=== PATIENT | male | born 1955 | race Caucasian/White ===

== ENCOUNTER 2017-02-06 17:46 | Emergency (ER) | payer OTHER ==
[~2017-02-06] VITALS: Ht 177.8 cm; Wt 79.0 kg
[~2017-02-06 17:46] MED LIST: ASPEC81 PO; CHOL100010 PO; CMBIN INH; DILT-119 PO; LORA-741 PO; NAPR-1169 PO; SIMV40TA2 PO; TIZA4CAP PO; TRAM-10 PO
[2017-02-06 17:47] VITALS: TEMP 36.6; Ht 177.8 cm; Wt 79.0 kg
[2017-02-06] MEDS ORDERED: CHOL1000 PO (17:57)
[2017-02-06] MEDS ORDERED: IPRA1AER2 INH (17:57)
[2017-02-06] MEDS ORDERED: ACETAMINOPHEN 325 MG TAB PO STA (18:04)
--- NOTE | 2017-02-06 19:00 | DIAGNOSTIC IMAGING REPORT ---
R TIBIA/FIBULA 2 VIEWS ROUTINE HISTORY: 62 years-old Male Fall; R lower leg contusion/hematoma acute right lower extremity vein and swelling status post trauma COMPARISON: None available TECHNIQUE: 2 views of the right tibia and fibula FINDINGS: There is moderate soft tissue swelling of the lower extremity, notably involving the mid pretibial tissues without focal opaque foreign body, acute fracture or dislocation. Mild degenerative changes are noted about the medial and lateral compartments of the knee. There is minimal spurring of the inferior fibula. Circumscribed sclerotic lesion with a chondroid matrix involves the medullary space of the distal tibial metadiaphysis, 2.7 x 1.4 x 1.8 cm with nonaggressive features. IMPRESSION: 1. Moderate soft tissue swelling of the lower extremity, notably involving the mid pretibial tissues without acute fracture, dislocation or opaque foreign body. 2. Chondroid matrix lesion of the distal tibial metadiaphysis medullary space measuring up to 2.7 cm suggests endochondroma. The above report was generated using voice recognition software. It may contain grammatical, syntax or spelling errors. Electronically signed by: Fred Rey M.D. 02/06/2017 6:59 PM Dictated Date/Time: 02/06/2017 6:56 PM
[2017-02-06 19:22] VITALS: BP 137/86; PULSE 84; O2SAT 99
--- NOTE | 2017-02-07 01:07 | EMERGENCY ROOM VISIT NOTE ---
ED Visit Note First contact with patient: 17:48 Chief Complaint: I hurt my right lower leg. History of Present Illness: Mr. Medeiros is a 62-year-old white male who is brought into the ED feel is sure come by her complaining of right lower leg pain. Patient reports less than an hour ago he was walking down a small embankment and slipped on wet leaves. He reports before the fall he had no lightheadedness or dizziness, at the time of the fall he did not strike his head or have a loss of consciousness and since the fall he has had no signs of head injury. He is not exactly sure the mechanism of injury but immediately after the fall he noted swelling and pain over the anterior proximal tibia. Since that time his pain has been constant. He rates his discomfort 2/10 and describes it as an achy sensation. His pain is nonradiating. He has not identified any aggravating or alleviating factors related to the pain. He reports she has not taken any medication for pain prior to arrival at the hospital. He denies any associated symptoms including knee pain, lower leg pain, ankle pain, foot pain, leg weakness/numbness/tingling. Additionally he reports that because of the swelling he was afraid to walk so he has not ambulated since the fall. Patient denies any previous significant injuries or surgeries to the right lower leg. Review of Systems: As noted above in history of present illness. Past Medical History: Hypertension, asthma, emphysema, anxiety, status post cholecystectomy, unspecified left knee surgery and unspecified back surgery. Current Medications: Aspirin, Ativan, Zanaflex, Ultram, Zocor, Naprosyn, vitamins, Combivent. Allergies to Medications: Patient denies. Social History: Patient is not employed; he lives with his and feels safe in his home environment; he admits to tobacco use and denies alcohol use. Physical Examination: Vital Signs: Date Time Temp Pulse Resp B/P (MAP) Pulse Ox O2 Delivery O2 Flow Rate FiO2 02/06/17 19:22 84 18 137/86 99 Room Air 02/06/17 17:47 36.6 84 16 137/79 100 Room Air GENERAL: 62-year-old male in mild distress due to pain, nontoxic-appearing, afebrile and hemodynamically stable. NEUROLOGICAL: Awake, alert and oriented to person, place and time. Answering questions appropriately and following commands. SKIN: Warm, dry and pink. Superficial abrasions were noted over the right hip and right lower leg over his contusion/hematoma. No active bleeding. RIGHT LOWER EXTREMITY: No gross bony deformity. No shortening or malrotation. No tenderness in the hip, thigh, knee, ankle or foot. Tenderness and swelling over the proximal anterior medial tibia where there is a large contusion/ hematoma. The knee was examined and there was no joint line tenderness or bony tenderness. He was no laxity of the collateral cruciate ligaments. Sylvester's test was deferred. No tenderness, swelling or bony deformity/crepitus around the ankle. Patient had a slight decrease range of motion in knee flexion due to pain and swelling but had full extension. Throughout the lower leg and foot the skin was warm and pink and capillary refill is brisk. He was able to distinguish light sensations through all dermatomes. ED Course: Patient is assessed as noted above. Patient's medication list was reviewed. Patient was given 650 mg of acetaminophen and ice for pain and comfort. Right Tibia/Fibula X-Rays: Were read by myself and the radiologist showing moderate soft tissue swelling involving the mid pretibial tissues with no acute fracture, dislocation or foreign bodies. Additionally radiologist did note a chondroid a trick lesion in the distal right tibial metaphysis medullary space measuring 2.7 cm suggestive of a endochondroma. An Julio bandage was placed around the hematoma/contusion for compression. I did file ambulation with the patient and he had no difficulty rising from the sitting position, standing, walking, turning around and returning; I did offer him crutches or walker and he refused. Patient was educated about today's findings and instructed on his treatment plan ; he verbalizes understanding and agreement with this plan. Clinical Impression: Right lower leg contusion/hematoma. Endochondroma right lower leg. Status post fall. Disposition: Patient discharged home in stable condition accompanied by his ; prior to departure he was reassessed and subjectively reported he was feeling better and rated his discomfort 1/10. Plan: Comfort measures were discussed with the patient including alternating ibuprofen and acetaminophen as needed for pain, ice for pain and swelling, Julio bandage for compression and elevation. Patient was encouraged to follow-up with his primary care provider for recheck and possible referral for his endochondroma. Patient was encouraged return ED for worsening/uncontrolled pain, uncontrolled swelling, leg weakness/numbness/tingling or any new/concerning symptoms.
== END 2017-02-06 19:24 | disposition home or self-care (01) ==
LOC: C.EDB 17:46 → C.EDD 19:24
DX: S80.11XA Contusion of right lower leg, initial encounter (principal); W01.0XXA Fall on same level from slipping, tripping and stumbling without subsequent striking against object, initial encounter; D16.21 Benign neoplasm of long bones of right lower limb; I10 Essential (primary) hypertension; J45.909 Unspecified asthma, uncomplicated; J43.9 Emphysema, unspecified; F17.200 Nicotine dependence, unspecified, uncomplicated; Z90.49 Acquired absence of other specified parts of digestive tract; Z98.890 Other specified postprocedural states; Z79.82 Long term (current) use of aspirin; Z79.899 Other long term (current) drug therapy

== ENCOUNTER → 2017-02-17 | Outpatient (CLI) | payer OTHER ==
[~2017-02-17] MED LIST changes: +CHOL1000 PO; -CHOL100010 PO; -CMBIN INH; +IPRA1AER2 INH
--- NOTE | 2017-02-17 17:19 | DIAGNOSTIC IMAGING REPORT ---
R ANKLE MIN 3 VIEWS ROUTINE CLINICAL HISTORY: Right leg pain. COMPARISON: Right tibia and fibula radiographs February 06, 2017. FINDINGS: A 2.7 x 1.7 cm chondroid matrix lesion within the distal tibial metadiaphysis suggests an enchondroma. There is mild soft tissue swelling. A well-corticated ossicle along the fibular tip suggests old injury. There is no acute fracture. Talar dome is intact. IMPRESSION: 1. No acute fracture or dislocation of the right ankle. 2. Well-corticated ossicle along the fibular tip which suggests old injury. 3. 2.7 x 1.7 cm chondroid matrix lesion of the distal right tibia which suggests an enchondroma. Electronically signed by: Dirk Weinberg M.D. 02/17/2017 5:18 PM Dictated Date/Time: 02/17/2017 5:16 PM
--- NOTE | 2017-02-17 17:29 | DIAGNOSTIC IMAGING REPORT ---
R TIBIA/FIBULA 2 VIEWS ROUTINE CLINICAL HISTORY: Right leg pain. Right leg hematoma. COMPARISON: Right tibia and fibula radiographs February 06, 2017. FINDINGS: No acute fracture of the right tibia or fibula is identified. A 2.7 x 1.7 cm chondroid lesion within the distal right tibia is noted. Talar dome is intact. A lucency with well-corticated ossicle along the fibular tip suggests old injury. IMPRESSION: 1. No acute fracture of the right tibia or fibula. 2. 2.7 x 1.7 cm chondroid matrix lesion within the distal right tibia which is suggestive of an enchondroma. Electronically signed by: Dirk Weinberg M.D. 02/17/2017 5:27 PM Dictated Date/Time: 02/17/2017 5:26 PM
--- NOTE | 2017-02-17 17:37 | DIAGNOSTIC IMAGING REPORT ---
RIGHT LOWER EXTREMITY VENOUS DOPPLER CLINICAL HISTORY: Right leg pain. Previous hematoma. COMPARISON STUDY: Bilateral lower extremity venous Doppler January 03, 2015. TECHNIQUE: Sonography of the deep venous system of the right lower extremity was performed. Compression and augmentation were evaluated. FINDINGS: The right common femoral, superficial femoral and popliteal veins were compressible. Augmentation was normal. Flow was shown within the deep calf vessels. Note is made of a subcutaneous 8.2 x 5.2 x 1.6 cm complex hypoechoic fluid collection of the superior medial right calf. There is also a smaller intramuscular collection of the superior medial right calf that measures 3.5 x 1.5 x 2.4 cm. IMPRESSION: 1. No evidence of deep venous thrombus within the right lower extremity. 2. 8.2 x 5.2 x 1.6 cm suspected subcutaneous hematoma of the superior medial right calf. 3. 3.5 x 1.5 x 2.4 cm suspected intramuscular hematoma of the superior medial right calf. Electronically signed by: Dirk Weinberg M.D. 02/17/2017 5:36 PM Dictated Date/Time: 02/17/2017 5:34 PM
== END | disposition home or self-care (01) ==
LOC: C.ULTR 16:22
PROVIDERS: ATTEND Nurse Practitioner Family
DX: Z87.828 Personal history of other (healed) physical injury and trauma (principal); M79.604 Pain in right leg; T14.8XXA Other injury of unspecified body region, initial encounter; X58.XXXA Exposure to other specified factors, initial encounter; M89.8X6 Other specified disorders of bone, lower leg

== ENCOUNTER 2017-04-12 15:18 | Emergency (ER) | payer OTHER ==
[~2017-04-12] VITALS: Ht 175.3 cm; Wt 79.3 kg
[2017-04-12 15:39] VITALS: TEMP 36.7; Ht 175.3 cm; Wt 79.3 kg
[2017-04-12] MEDS ORDERED: METHYLPREDNISOLONE 125 MG VIAL IV STA (16:06)
[2017-04-12] MEDS ORDERED: DiphenhydrAMINE HCL 50 MG/ML VIAL IV STA (16:06)
[2017-04-12] MEDS ORDERED: RANITIDINE HCL 150 MG TAB PO ONE (16:15)
--- NOTE | 2017-04-12 16:28 | EMERGENCY ROOM VISIT NOTE ---
History First contact with patient: 15:54 Chief Complaint: INFECTION Stated Complaint: SEPSIS Nursing Triage Summary: Pt presents with c/o rash all over, b/l foot pain. Pt states injured left ankle recently. Rash started at injury site. Pt reports being concerned for sepsis. Pt states, "I have a friend who is an EMT. I called and told them about the rash. They asked if it is a red rash and when I said yes, they said to come here because I may have sepsis." History of Present Illness The patient is a 62 year old male who presents to the Emergency Room with complaints of a rash to both of his legs that started yesterday. It is mildly itchy. It is now spreading to his back. He denies any fever or chills. he denies any recent injury to his legs. He has not tried any [id number] medications. He denies any new soaps, lotions or detergents. No recent travel. Review of Systems 10 system review performed and negative unless noted in HPI or below Past Medical/Surgical History Medical Problems: (1) Hypercholesteremia (2) Hypertension (3) TIA (transient ischemic attack) COPD Family History Gallbladder disease Social History Smoking Status: Current Every Day Smoker Marital Status: Housing Status: lives with significant other Occupation Status: unemployed Current/Historical Medications Scheduled Aspirin (Aspirin EC Low Dose), 81 MG PO QAM Cholecalciferol (Vitamin D3), 1,000 INTER.UNIT PO DAILY Diltiazem Hcl Ext Rel (Tiazac), 360 MG PO DAILY AT LUNCH Naproxen (Naprosyn), 500 MG PO BID Simvastatin (Zocor), 40 MG PO DAILY AT LUNCH Scheduled PRN Lorazepam (Ativan), 0.5 MG PO BID PRN for Anxiety Tramadol (Ultram), 50 MG PO Q8H PRN for Pain Physical Exam Vital Signs Date Time Temp Pulse Resp B/P (MAP) Pulse Ox O2 Delivery O2 Flow Rate FiO2 04/12/17 18:49 68 16 136/81 92 04/12/17 18:35 68 16 136/81 92 Room Air 04/12/17 17:31 63 17 131/84 93 Room Air 04/12/17 15:39 36.7 73 18 148/83 95 Room Air Physical Exam VITALS: Vitals are noted on the nurse's note and reviewed by myself. Vital signs stable. GENERAL: 62-year-old male, in no acute distress, nondiaphoretic, well-developed well-nourished. SKIN: Approximately 10 cm area of erythema and warmth noted to the medial aspect of the right ankle. There is a mild, diffuse, slightly erythematous, not raised, blanching, blotchy lesions noted to the thighs right greater than left. No rash noted on the back.. HEAD: Normocephalic atraumatic. NECK: No lymphadenopathy HEART: Regular rate and rhythm without murmurs gallops or rubs. LUNGS: Clear to auscultation bilaterally without wheezes, rales or rhonchi. No accessory muscle use. MUSCULOSKELETAL: Rash as noted above. Approximately 5 x 4 cm firm lesion noted to the anterior aspect of the right palmer. Strength 5/5 throughout. NEURO: Patient was alert and oriented to person place and time. Normal sensation to touch. No focal neurological deficits. Medical Decision & Procedures Laboratory Results 04/12/17 16:15 Red Blood Count 4.20, Mean Corpuscular Volume 88.6, Mean Corpuscular Hemoglobin 30.5, Mean Corpuscular Hemoglobin Concent 34.4, Mean Platelet Volume 8.9, Neutrophils (%) (Auto) 50.0, Lymphocytes (%) (Auto) 33.2, Monocytes (%) (Auto) 7.3, Eosinophils (%) (Auto) 8.5, Basophils (%) (Auto) 0.8, Neutrophils # (Auto) 2.59, Lymphocytes # (Auto) 1.72, Monocytes # (Auto) 0.38, Eosinophils # (Auto) 0.44, Basophils # (Auto) 0.04 04/12/17 16:15 Test 04/12/17 16:15 04/12/17 17:20 White Blood Count 5.18 K/uL (4.8-10.8) Red Blood Count 4.20 M/uL (4.7-6.1) Hemoglobin 12.8 g/dL (14.0-18.0) Hematocrit 37.2 % (42-52) Mean Corpuscular Volume 88.6 fL (80-100) Mean Corpuscular Hemoglobin 30.5 pg (25-34) Mean Corpuscular Hemoglobin Concent 34.4 g/dl (32-36) Platelet Count 285 K/uL (130-400) Mean Platelet Volume 8.9 fL (7.4-10.4) Neutrophils (%) (Auto) 50.0 % Lymphocytes (%) (Auto) 33.2 % Monocytes (%) (Auto) 7.3 % Eosinophils (%) (Auto) 8.5 % Basophils (%) (Auto) 0.8 % Neutrophils # (Auto) 2.59 K/uL (1.4-6.5) Lymphocytes # (Auto) 1.72 K/uL (1.2-3.4) Monocytes # (Auto) 0.38 K/uL (0.11-0.59) Eosinophils # (Auto) 0.44 K/uL (0-0.5) Basophils # (Auto) 0.04 K/uL (0-0.2) RDW Standard Deviation 42.0 fL (36.4-46.3) RDW Coefficient of Variation 13.0 % (11.5-14.5) Immature Granulocyte % (Auto) 0.2 % Immature Granulocyte # (Auto) 0.01 K/uL (0.00-0.02) Erythrocyte Sedimentation Rate 6 mm/hr (0-14) Anion Gap 6.0 mmol/L (3-11) Est Creatinine Clear Calc Drug Dose 85.0 ml/min Estimated GFR () 105.5 Estimated GFR (Non- 91.0 BUN/Creatinine Ratio 20.0 (10-20) Calcium Level 8.8 mg/dl (8.5-10.1) Total Bilirubin 0.2 mg/dl (0.2-1) Aspartate Amino Transf (AST/SGOT) 17 U/L (15-37) Alanine Aminotransferase (ALT/SGPT) 20 U/L (12-78) Alkaline Phosphatase 94 U/L (45-117) Total Protein 6.6 gm/dl (6.4-8.2) Albumin 3.6 gm/dl (3.4-5.0) Globulin 3.0 gm/dl (2.5-4.0) Albumin/Globulin Ratio 1.2 (0.9-2) Lyme Disease IgG Antibody NEG (NEG) Lyme Disease IgM Antibody NEG (NEG) Lactic Acid Level 0.6 mmol/L (0.4-2.0) Medications Administered Medications (Trade) Dose Ordered Sig/Yoav Route Start Time Stop Time Status Last Admin Dose Admin Diphenhydramine HCl (Benadryl Inj) 25 mg NOW STAT IV 04/12/17 16:06 04/12/17 16:08 DC 04/12/17 16:21 25 MG Ranitidine HCl (zANTac TAB) 150 mg NOW ONCE PO 04/12/17 16:15 04/12/17 16:16 DC 04/12/17 16:21 150 MG Methylprednisolone Sodium Succinate (Solu-Medrol IV) 125 mg NOW STAT IV 04/12/17 16:06 04/12/17 16:09 DC 04/12/17 16:21 125 MG Cephalexin Monohydrate (Keflex Cap) 500 mg NOW ONCE PO 04/12/17 18:15 04/12/17 18:16 DC 04/12/17 18:36 500 MG ED Course Patient was seen and examined Vital signs including blood pressure were reviewed medications list was verified with patient Labs were obtained, and a saline lock was established The patient was given Benadryl and Zantac. He was also given a dose of Solu- Medrol The patient was seen and examined by my supervising physician The workup was reviewed. The findings were discussed with the patient and the patient's family. They voiced understanding. He was given 1 dose of Keflex. I reviewed discharge instructions the patient. They voiced understanding and had no further questions. Medical Decision Differential diagnosis: Allergic reaction, infectious etiology, rheumatologic etiology such as vasculitis This patient is a 62-year-old male presents to emergency department with complaints of a rash to his legs. On exam, the rash is more allergic in appearance on his thighs. There is an area around his right ankle that looked to be the start of possibly a mild cellulitis. He is nontoxic in appearance. He is afebrile. There is no leukocytosis. Sedimentation rate is also normal. I have a low suspicion of vasculitis. The patient will be treated for cellulitis with antibiotics. He was also given a course of steroids. He was also instructed to take Benadryl. He was advised to have this rechecked in 48 hours. He also agrees to return to the emergency department with any new, worsening or concerning symptoms. This chart was completed in part utilizing [employer] Voice Recognition software. Attempts were made to minimize the grammatical errors, random word insertions, pronoun errors and incomplete sentences. Any formal questions or concerns about the content, text or information contained within the body of this dictation should be directly addressed to the provider for clarification. Medication Reconcilliation Current Medication List: was personally reviewed by me Blood Pressure Screening Patient's blood pressure: Elevated blood pressure Blood pressure disposition: Did not require urgent referral Impression Primary Impression: Cellulitis Additional Impression: Rash Departure Information Dispostion Home / Self-Care Condition GOOD Referrals No Doctor, Assigned (PCP) Kris Reese M.D. Patient Instructions My [facility] Additional Instructions Please take the entire course of antibiotics. First dose is tomorrow morning You may take Benadryl 2 tabs every 8 hours as needed for itching Please take the entire course of steroids. First dose is tomorrow. Please follow-up with your primary care physician to have this rechecked in 2 days. Please return to the emergency department with any new, worsening or concerning symptoms; especially, fever, worsening rash, difficulty breathing or swallowing , severe pain Problem Qualifiers
[2017-04-12 16:40] LABS: BASO % 0.8 %; BASO ABS # 0.04 K/uL (0-0.2); COMPLETE YES; EOS % 8.5 %; HEMATOCRIT 37.2 % (42-52); IG% 0.2 %; LYMPH % 33.2 %; LYMPH ABS # 1.72 K/uL (1.2-3.4); MEAN CELL VOLUME 88.6 fL (80-100); MEAN CORPUSCULAR HEMOGLOBIN 30.5 pg (25-34); MEAN CORPUSCULAR HGB CONC 34.4 g/dl (32-36); MEAN PLATELET VOLUME 8.9 fL (7.4-10.4); MONO % 7.3 %; PLATELET COUNT 285 K/uL (130-400); WHITE BLOOD COUNT 5.18 K/uL (4.8-10.8)
[2017-04-12 16:56] LABS: CALCIUM 8.8 mg/dl (8.5-10.1); CREATININE 0.89 mg/dl (0.60-1.40); POTASSIUM 3.8 mmol/L (3.5-5.1)
[2017-04-12 17:00] LABS: ALB/GLOB RATIO 1.2 (0.9-2)
[2017-04-12 17:34] LABS: LYME DISEASE AB IGG NEG (NEG); LYME DISEASE AB IGM NEG (NEG)
[2017-04-12] MEDS ORDERED: CEPHALEXIN MONOHYDRATE 250 MG CAP PO ONE (18:15)
[2017-04-12 18:49] VITALS: BP 136/81; PULSE 68; O2SAT 92
--- NOTE | 2017-04-12 19:37 | EMERGENCY ROOM VISIT NOTE ---
ED Visit Note First contact with patient: 15:54 I have personally evaluated this patient examined her and reviewed the pertinent labs and data. I have discussed the case with Pauline Sinha, the physician guest services assistant and agree with the plan. Please refer to the PA note. This patient comes in complaining of a rash for a couple of days. He is otherwise asymptomatic. It is primarily has legs but also little bit on his back and arms. It does not involve the mucous membranes. He's been afebrile . He has. He has no systemic complaints is no shortness of breath . This is not hives. It does not appear to be petechiae or vasculitic at this point and blanches in his upper legs. It's more red in his lower leg on the right. He has no calf tenderness. He has no fever. His inflammatory markers are not elevated. He has no acute electrolyte or metabolic abnormalities. His Lyme titer was negative. We will discharge him with prednisone and Benadryl and also put him on some antibiotics for possible early cellulitis in the legs. He was encouraged to return if: increasing pain, worsening of symptoms, systemic complaints, any new problems or concerns.
== END 2017-04-12 18:50 | disposition home or self-care (01) ==
LOC: C.EDB 15:20 → C.EDC 18:50
DX: L03.115 Cellulitis of right lower limb (principal); R21 Rash and other nonspecific skin eruption; E78.00 Pure hypercholesterolemia, unspecified; I10 Essential (primary) hypertension; J44.9 Chronic obstructive pulmonary disease, unspecified; Z86.73 Personal history of transient ischemic attack (TIA), and cerebral infarction without residual deficits; Z83.79 Family history of other diseases of the digestive system; F17.210 Nicotine dependence, cigarettes, uncomplicated; Z79.82 Long term (current) use of aspirin; Z79.899 Other long term (current) drug therapy

== ENCOUNTER 2017-05-21 12:16 | Emergency (ER) | payer OTHER ==
[~2017-05-21] VITALS: Ht 175.3 cm; Wt 78.7 kg
[~2017-05-21 12:16] MED LIST changes: -IPRA1AER2 INH; -TIZA4CAP PO
[2017-05-21 12:27] VITALS: TEMP 36.7; Ht 175.3 cm; Wt 78.7 kg
[2017-05-21] MEDS ORDERED: KETOROLAC TROMETHAMINE 30 MG/ML VIAL IM STA (12:55)
[2017-05-21] MEDS ORDERED: HYDROCODONE/ACETAMOPHEN 5/325MG TAB PO ONE (13:00)
[2017-05-21] MEDS ORDERED: TYLOTC500 PO (13:12)
[2017-05-21] MEDS ORDERED: FLUT1INH INH (13:15)
--- NOTE | 2017-05-21 13:42 | DIAGNOSTIC IMAGING REPORT ---
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 Minimal degenerative changes of the hips bilaterally. No acute bony abnormality. No evidence for fracture. There is no evidence for soft tissue swelling. IMPRESSION: No acute process of the pelvis. Minimal degenerative change of the hips bilaterally. The above report was generated using voice recognition software. It may contain grammatical, syntax or spelling errors. Electronically signed by: Lopez Alvarado M.D. 05/21/2017 1:41 PM Dictated Date/Time: 05/21/2017 1:40 PM
--- NOTE | 2017-05-21 14:09 | EMERGENCY ROOM VISIT NOTE ---
ED Visit Note First contact with patient: 12:48 The patient was seen and examined with Josef Booker PA-C. I agree with the history, physical and findings. Please see the note for disposition and details.
[2017-05-21] MEDS ORDERED: PRED50TA PO (14:36)
[2017-05-21] MEDS ORDERED: HYDR-5688 PO (14:36)
[2017-05-21 15:06] VITALS: BP 127/85; PULSE 72; O2SAT 96
--- NOTE | 2017-05-21 18:48 | EMERGENCY ROOM VISIT NOTE ---
History First contact with patient: 12:43 Chief Complaint: LEG PAIN,LEG INJURY Stated Complaint: SEVERE PAIN IN LEFT LEG History of Present Illness The patient is a 62 year old white male who presents to the Emergency Room with his , with complaints of left low back pain that radiates to his left leg. Symptoms have been present for almost an entire week. He has a history of chronic low back pain and has had previous lumbar fusion with iliac crest bone grafting. He normally sees Dr. House for his low back pain. He states he did call last week and has an appointment for this coming Tuesday. He thought he could make it through the weekend but the pain became too severe. No specific trauma. He denies any falls. He points to the left SI joint as his area of discomfort. No loss of bowel or bladder control. He did try Tylenol and tramadol at home without significant improvement. He is having difficulty with sleep. He cannot find a comfortable position. He has tried putting a pillow under his legs as well as between his legs without improvement. He is ambulating is a walker. He feels best when standing and leaning forward. Review of Systems REVIEW OF SYSTEM: HEENT: No dizziness, visual problems, hearing loss, or tinnitus. There is no difficulty swallowing and no oral lesions are present. LYMPH: No adenopathy. PULMONARY: No cough, shortness of breath, sputum production or hemoptysis. CARDIOVASCULAR: No chest pain, palpitations, shortness of breath or peripheral edema. GASTROINTESTINAL: No diarrhea, constipation, nausea, vomiting, or abdominal pain. GENITOURINARY: No dysuria, frequency, urgency or nocturia. NEUROLOGIC: No muscle tenderness, or epilepsy. Positive history of TIA. MUSCULOSKELETAL: No history of joint tenderness/swelling. Positive history of arthritis and arthralgias. Positive chronic back pain. SKIN: No rashes or lesions. PSYCHIATRIC: No history of depression or mental illness. ENDOCRINE: No history of diabetes, thyroid disorders, or abnormal hair growth. Past Medical/Surgical History Medical Problems: (1) Hypercholesteremia (2) Hypertension (3) TIA (transient ischemic attack) Family History Gallbladder disease Social History Smoking Status: Current Every Day Smoker Smokeless Tobacco Use: No Alcohol Use: none Drug Use: none Marital Status: Housing Status: lives with significant other Occupation Status: unemployed Current/Historical Medications Scheduled Aspirin (Aspirin EC Low Dose), 81 MG PO QAM Cholecalciferol (Vitamin D3), 1,000 INTER.UNIT PO DAILY Diltiazem Hcl Ext Rel (Tiazac), 360 MG PO DAILY AT LUNCH Fluticasone Furoate-Vilanterol (Breo Ellipta), 1 PUFF INH DAILY Naproxen (Naprosyn), 500 MG PO BID Prednisone (Prednisone), 50 MG PO DAILY Simvastatin (Zocor), 40 MG PO DAILY AT LUNCH Scheduled PRN Acetaminophen (Tylenol), 1,000 MG PO Q4H PRN for Pain Hydrocodone/Acetaminophen 5MG/325MG ([place] 5MG/325MG), 1-2 TABLET PO Q6H PRN for Pain Lorazepam (Ativan), 0.5 MG PO BID PRN for Anxiety Tramadol (Ultram), 50 MG PO Q8H PRN for Pain Physical Exam Vital Signs Date Time Temp Pulse Resp B/P (MAP) Pulse Ox O2 Delivery O2 Flow Rate FiO2 05/21/17 15:06 72 20 127/85 96 Room Air 05/21/17 13:58 66 18 150/90 95 Room Air 05/21/17 12:27 36.7 80 20 141/88 96 Room Air Physical Exam Gen.: Well-developed, well-nourished, middle-aged white male, who looks older than his stated age. Obvious discomfort. Standing over his walker. Skin:Warm and dry with good turgor. No rashes or lesions. No ecchymosis or erythema. The patient is not diaphoretic. No abrasions. Well-healed scars present over his lumbar spine and right iliac crest. Musculoskeletal: No discomfort with palpation over his lumbar spine or discs spaces. No pain with palpation over the right SI joint or right gluteus. Focal discomfort with palpation over the left SI joint extending into the left gluteus. It also extends into the greater trochanter and left IT band. No pain with palpation over his anterior quadricep. There is discomfort over his ischial tuberosity. Palpation over the sciatic notch increases the pain down the leg. He does have intact motor function to the left leg. Flexion of the right and left legs causes increased pain in his left SI joint. Neurologic: Gross sensation is intact across both lower extremities by soft touch. Peripheral pulses are 2+. DTRs are 1+ bilaterally at the knees. Medical Decision & Procedures ER Provider Diagnostic Interpretation: Radiographic imaging obtained today of his pelvis was reviewed by me and read by radiology. No significant arthritic change of the hips. No acute process of the pelvis. Medications Administered Medications (Trade) Dose Ordered Sig/Yoav Route Start Time Stop Time Status Last Admin Dose Admin Ketorolac Tromethamine (Toradol Inj) 30 mg NOW STAT IM 05/21/17 12:55 05/21/17 12:58 DC 05/21/17 13:03 30 MG Acetaminophen/ Hydrocodone Bitart ([place] 5/325 Tab) 2 tab ONE ONCE PO 05/21/17 13:00 05/21/17 13:01 DC 05/21/17 13:03 2 TAB Prednisone (PredniSONE TAB) 50 mg ONE ONCE PO 05/21/17 14:45 05/21/17 14:46 DC 05/21/17 15:02 50 MG Toradol 30 mg IM, [place] 5 mg 2 tablets by mouth, prednisone 50 mg by mouth ED Course Patient was educated regarding today's findings. Conservative care measures were discussed. Pelvic imaging was obtained and he was reassured that there is no significant arthritic change of his hips. They're not dislocated. He was given Toradol 30 mg IM and [place] 5 mg 2 tablets by mouth. Pain improved from 10 /10 to 6/10. He was given prednisone 50 mg orally. Additional prescription was provided, to be taken daily for 4 more days. Additional prescription was also provided for Wishek to be used for severe pain. Driving precautions were given. He may use regular Tylenol and his Ultram at home for mild pain. Follow -up with Dr. House this week. Return to the ED for any acute worsening of symptoms or loss of bowel or bladder control. He may benefit from physical therapy. Continue to use a pillow under his knees or between his knees when sleeping. Ice to the low back may also improve comfort. Gentle stretching daily. Medical Decision Possibility of disc disease, nerve root impingement, and SI joint dysfunction, sciatica, and lumbar strain were considered among others. [place] Drug Monitoring [place] Search Results: no issues identified Medication Reconcilliation Current Medication List: was personally reviewed by me Impression Primary Impression: Left lumbar radiculopathy Additional Impression: Sacroiliac joint dysfunction of left side Departure Information Dispostion Home / Self-Care Condition GOOD Prescriptions Prednisone (Prednisone) 50 Mg Tab 50 MG PO DAILY for 4 Days, #4 TAB Prov: Sefchick, Josef D.,P.A. 05/21/17 Hydrocodone/Acetaminophen 5MG/325MG (Wishek 5MG/325MG) Tab 1-2 TABLET PO Q6H Y for Pain, #20 TAB For Initial Treatment Prov: Josef Booker,P.A. 05/21/17 Forms HOME CARE DOCUMENTATION FORM, SPECIAL NARCOTICS INSTRUCTIONS, IMPORTANT VISIT INFORMATION Patient Instructions My [facility] Additional Instructions Ice intermittently to the low back as needed Gentle stretching daily Call Dr. House on Tuesday for follow-up this week Prednisone once daily 5 days Wishek 1 to 2 tablets every 6 hours as needed for pain-no driving Use a pillow under your knees or between her knees when sleeping Problem Qualifiers
== END 2017-05-21 15:06 | disposition home or self-care (01) ==
LOC: C.EDB 12:18 → C.EDC 15:06
DX: M54.16 Radiculopathy, lumbar region (principal); M53.3 Sacrococcygeal disorders, not elsewhere classified; G89.29 Other chronic pain; M16.0 Bilateral primary osteoarthritis of hip; M25.50 Pain in unspecified joint; I10 Essential (primary) hypertension; F17.200 Nicotine dependence, unspecified, uncomplicated; Z98.1 Arthrodesis status; Z79.82 Long term (current) use of aspirin; Z79.51 Long term (current) use of inhaled steroids; Z83.79 Family history of other diseases of the digestive system

== ENCOUNTER 2017-05-26 23:31 | Emergency (ER) | payer OTHER ==
[~2017-05-26] VITALS: Ht 175.3 cm; Wt 79.0 kg
[~2017-05-26 23:31] MED LIST changes: +FLUT1INH INH; +HYDR-5688 PO; +PRED50TA PO; +TYLOTC500 PO
[2017-05-26 23:33] VITALS: TEMP 36.4; Ht 175.3 cm; Wt 79.0 kg
[2017-05-27] MEDS ORDERED: LIDODERM (LIDOCAINE) PATCH 5% TD STA (01:01)
[2017-05-27] MEDS ORDERED: CYCLOBENZAPRINE HCL 5 MG TAB PO STA (01:01)
--- NOTE | 2017-05-27 01:07 | EMERGENCY ROOM VISIT NOTE ---
History Report prepared by Fidelina: Tuan Shaver Under the Supervision of: Dr. Natalie Shelton D.O. First contact with patient: 00:47 Chief Complaint: SWELLING TO EXTREMITY Stated Complaint: RIGHT BACK AND RIGHT LEG PAIN,LEGS SWOLLEN History of Present Illness The patient is a 62 year old male who presents to the Emergency Room with complaints of sharp lower left sided back pain that has worsened this past month. He has a past medical history of a spinal fusion procedure and has had chronic back pain since. He rates his pain a 10/10 in severity. His pain is exacerbated with sitting and lying down. It is only manageable while he is standing. His pain radiates down his entire left leg. He was seen in the ER for the same symptoms 1 week ago. He was placed onto Prednisone and [place] for his pain with a follow up with Dr. House tomorrow. Per his family, his pain has not improved and he has been standing for the past week. He denies any trauma or injury. He denies any fevers, chills, chest pain, shortness of breath, nausea, vomiting, bowel trouble, or abnormal urinary symptoms. He notes that his legs and feet are swollen bilaterally which is new. He also has a history of hypertension and hyperlipidemia. He is on a baby Aspirin without any other blood thinners. Source of History: patient Onset: last month Position: back (left lower) Symptom Intensity: 10/10 Quality: sharp Timing: constant Modifying Factors (Worsening): rest Modifying Factors (Relieving): other (Standing) Associated Symptoms: No fevers, No chills, No chest pain, No SOB, No nausea , No vomiting, No melena, No hematochezia, No diarrhea, No urinary symptoms Note: His pain radiates down his entire left leg. His legs and feet are swollen bilaterally. Review of Systems See HPI for pertinent positives & negatives. A total of 10 systems reviewed and were otherwise negative. Past Medical & Surgical Medical Problems: (1) Hypercholesteremia (2) Hypertension (3) TIA (transient ischemic attack) Family History Gallbladder disease Social History Smoking Status: Current Every Day Smoker Alcohol Use: none Drug Use: none Marital Status: Housing Status: lives with significant other Occupation Status: unemployed Current/Historical Medications Scheduled Aspirin (Aspirin EC Low Dose), 81 MG PO QAM Cholecalciferol (Vitamin D3), 1,000 INTER.UNIT PO DAILY Cyclobenzaprine Hcl (Flexeril), 5 MG PO TID Diltiazem Hcl Ext Rel (Tiazac), 360 MG PO DAILY AT LUNCH Fluticasone Furoate-Vilanterol (Breo Ellipta), 1 PUFF INH DAILY Lidocaine (Lidocaine), 1 PATCH TD DAILY Naproxen (Naprosyn), 500 MG PO BID Simvastatin (Zocor), 40 MG PO DAILY AT LUNCH Scheduled PRN Acetaminophen (Tylenol), 1,000 MG PO Q4H PRN for Pain Hydrocodone/Acetaminophen 5MG/325MG ([place] 5MG/325MG), 1-2 TABLET PO Q6H PRN for Pain Lorazepam (Ativan), 0.5 MG PO BID PRN for Anxiety Oxycodone/Acetaminophen 5MG/325MG (Percocet 5MG/325MG), 1-2 TABS PO Q4H PRN for Pain Tramadol (Ultram), 50 MG PO Q8H PRN for Pain Allergies Coded Allergies: No Known Allergies (Verified , 05/26/17) Physical Exam Vital Signs Date Time Temp Pulse Resp B/P (MAP) Pulse Ox O2 Delivery O2 Flow Rate FiO2 05/27/17 06:28 74 16 138/87 92 Room Air 05/27/17 05:49 79 16 158/79 92 Room Air 05/27/17 04:30 71 16 134/73 91 05/27/17 03:08 92 20 141/80 91 Room Air 05/26/17 23:33 36.4 92 20 159/103 94 Room Air Physical Exam GENERAL: alert, very uncomfortable appearing, well nourished, mild distress, non -toxic, smells strongly of tobacco. EYE EXAM: normal conjunctiva, PERRL and EOM's grossly intact OROPHARYNX: no exudate, no erythema, lips, buccal mucosa, and tongue normal and mucous membranes are moist NECK: supple, no nuchal rigidity, no adenopathy, non-tender LUNGS: Decreased breath sounds to all fisher. No wheezes, rales, or rhonchi. Normal chest wall mechanics HEART: no murmurs, S1 normal and S2 normal ABDOMEN: abdomen soft, non-tender, normo-active bowel sounds, no masses, no rebound or guarding. BACK: Back is symmetrical on inspection and there is no deformity, no midline tenderness, no CVA tenderness. Well healed midline vertical scar to the lumbar region and a smaller horizontal scar over the right posterior iliac crest. No midline bony tenderness to the lumbar spine. Pain to the left mid buttock. No bony tenderness to palpation over the hips or sacrum. SKIN: no rashes and no bruising UPPER EXTREMITIES: upper extremities are grossly normal. LOWER EXTREMITIES: Trace to 1+ edema bilaterally. Decreased ROM bilaterally secondary to pain. Trace NEURO EXAM: Normal sensorium, cranial nerves II-XII grossly intact, normal speech, no gross weakness of arms, no gross weakness of legs. Medical Decision & Procedures ER Provider Diagnostic Interpretation: Radiology results have been interpreted by the radiologist and reviewed by me. MRI L SPINE: L5 laminectomy. Disc desiccation throughout the lumbar spine and multilevel degenerative changes L1-L2, posterior disc bulge causes minimal canal and foraminal stenosis. L2-L3, foraminal disc protrusions cause minimal foraminal stenosis. L3-L4, posterior disc bulge and facet arthropathy/ligamentous hypertrophy causes mild canal stenosis, moderate right lateral recess narrowing (possible mass effect on the traversing right L4 nerve root), mild left lateral recess narrowing, and mild bilateral foraminal narrowing. L4-L5, left subarticular disc protrusion and facet arthropathy cause MODERATE TO SEVERE narrowing of left lateral recess with mass effect and possible compression of traversing left L5 nerve root, which may account for patients symptoms. L5-S1, posterior disc/ossify complex and facet arthropathy cause mild to moderate bilateral foraminal narrowing. Radiologist: Anmol Cunningham MD Laboratory Results Test 05/27/17 04:21 Urine Color YELLOW Urine Appearance CLEAR (CLEAR) Urine pH 7.5 (4.5-7.5) Urine Specific [place] 1.010 (1.000-1.030) Urine Protein NEG (NEG) Urine Glucose (UA) NEG (NEG) Urine Ketones NEG (NEG) Urine Occult Blood TRACE (NEG) Urine Nitrite NEG (NEG) Urine Bilirubin NEG (NEG) Urine Urobilinogen NEG (NEG) Urine Leukocyte Esterase NEG (NEG) Urine WBC (Auto) 0 /hpf (0-5) Urine RBC (Auto) 0-4 /hpf (0-4) Urine Hyaline Casts (Auto) 0 /lpf (0-5) Urine Epithelial Cells (Auto) 0-5 /lpf (0-5) Urine Bacteria (Auto) NEG (NEG) Laboratory results per my review. Medications Administered Medications (Trade) Dose Ordered Sig/Yoav Route Start Time Stop Time Status Last Admin Dose Admin Hydromorphone HCl (Dilaudid Inj) 1 mg Q15M PRN IV 05/27/17 01:15 05/27/17 06:44 DC 05/27/17 02:00 1 MG Lidocaine (Lidoderm Patch 5%) 1 patch NOW STAT TD 05/27/17 01:01 05/27/17 01:09 DC 05/27/17 01:14 1 PATCH Cyclobenzaprine HCl (Flexeril Tab) 5 mg NOW STAT PO 05/27/17 01:01 05/27/17 01:09 DC 05/27/17 01:14 5 MG Oxycodone/ Acetaminophen (Percocet 5-325mg Tab) 1 tab NOW ONCE PO 05/27/17 04:30 05/27/17 04:31 DC 05/27/17 04:30 1 TAB Hydromorphone HCl (Dilaudid Inj) 0.5 mg NOW STAT IV 05/27/17 05:18 05/27/17 05:19 DC 05/27/17 05:24 0.5 MG Oxycodone/ Acetaminophen (Percocet 5-325mg Tab) 1 tab NOW ONCE PO 05/27/17 05:30 05/27/17 05:31 DC 05/27/17 05:25 1 TAB ED Course 0047: The patient was evaluated in room B2. A complete history and physical exam was performed. 0101: Ordered Flexeril Tab 5 mg PO, Lidocaine 1 patch TD 0115: Ordered Dilaudid Inj 1 mg IV 0424: Upon reevaluation, the patient is feeling better. We will try to convert his IV medications to oral medications. 0430: Ordered Oxycodone/Acetaminophen 1 tab PO 0518: Ordered Dilaudid Inj 0.5 mg IV 0530: Ordered Oxycodone/Acetaminophen 1 tab PO 0630: Upon reevaluation, the patient is feeling better. I discussed the findings and the treatment plan with the patient. He verbalizes agreement and understanding. He was discharged home. Medical Decision Differential diagnosis: Etiologies such as musculoskeletal, disc herniation, fracture, aortic disease, metastatic disease, cord compression, discitis, infection, renal colic, gastrointestinal, acute exacerbation of chronic back pain, sciatica, cauda equina, as well as others were entertained. Patient offered admission here due to severity of pain and MRI findings, he declined stating that he felt improved with pain medications here would like to keep his appointment with his physician this morning. No evidence of acute cauda equina, however patient made aware of all MRI results. Discussed symptoms to watch and return for, he verbalized understanding was agreeable with plan. Doubt occult infectious etiology, doubt obstructive uropathy or kidney stone. Patient able to walk at time of discharge, was still using the walker as a precaution. [place] Drug [place] Search Results: patient reviewed within database, no issues identified Medication Reconcilliation Current Medication List: was personally reviewed by me Blood Pressure Screening Patient's blood pressure: Elevated blood pressure Blood pressure disposition: Elevated BP felt to be situational Impression Primary Impression: Left lumbar radiculopathy Scribe Attestation The scribe's documentation has been prepared under my direction and personally reviewed by me in its entirety. I confirm that the note above accurately reflects all work, treatment, procedures, and medical decision making performed by me. Departure Information Dispostion Home / Self-Care Prescriptions Cyclobenzaprine Hcl (FLEXERIL) 5 Mg Tab 5 MG PO TID for Pain, #10 TAB PRN Prov: Natalie Shelton, DO 05/27/17 Oxycodone/Acetaminophen 5MG/325MG (PERCOCET 5MG/325MG) Tab 1-2 TABS PO Q4H Y for Pain, #10 TAB Prov: Natalie Shelton, DO 05/27/17 Lidocaine (LIDOCAINE) 5 % Pad 1 PATCH TD DAILY for Pain, #1 BOX Prov: Natalie Shelton, DO 05/27/17 Referrals Kris Reese M.D. (PCP) Forms HOME CARE DOCUMENTATION FORM, IMPORTANT VISIT INFORMATION, WORK / SCHOOL INSTRUCTIONS Patient Instructions My [facility] Additional Instructions Please keep your appointment this morning as scheduled. You may use the medication as provided. If you choose to take the pain medication given to you tonight, do not take the hydrocodone your previously prescribed. Please monitor for constipation as this is a common side effect of strong narcotic pain medication. You may use the muscle relaxer as prescribed. You may also use the pain patch daily, and take it off before bed. Please do not take the anti-inflammatory for more than 10 days. If you have any worsening pain, are unable to walk, develop numbness or tingling in the leg, numbness or tingling or , groin, have difficulty urinating or having a bowel movement, become incontinent of your urine or stool, develop fevers, you have any other new concerns, please return the emergency room.
[2017-05-27] MEDS: HYDROmorphone INJ 1 MG/ML SYR IV PRN ×2 (01:14→02:00)
[2017-05-27] MEDS ORDERED: OXYCODONE/ACETAMINOPHEN 5-325 TAB PO ONE ×2 (04:30→05:30)
[2017-05-27] MEDS ORDERED: HYDROmorphone INJ 0.5 MG/0.5 ML SYR IV STA (05:18)
[2017-05-27] MEDS ORDERED: LIDO1PAD2 TD (06:27)
[2017-05-27 06:28] VITALS: BP 138/87; PULSE 74; O2SAT 92
[2017-05-27] MEDS ORDERED: OXYC-57 PO (06:28)
[2017-05-27] MEDS ORDERED: CYCL5TAB PO (06:28)
--- NOTE | 2017-05-27 06:58 | DIAGNOSTIC IMAGING REPORT ---
MRI LUMBAR SPINE W/O CONTRAST CLINICAL HISTORY: Worsening back pain. Inability to walk. Seizures. TECHNIQUE: Sagittal and axial T1, T2 and STIR images were obtained. COMPARISON STUDY: No previous studies for comparison. OBSERVATIONS: The vertebral bodies and posterior elements appear intact. There is no abnormal bony signal present to suggest a marrow replacement process. L1-2: There is a very minimal circumferential disc bulge. There is no significant spinal or foraminal stenosis L2-3: No disc protrusions or extrusions. No evidence of spinal canal or neural foraminal compromise. L3-4: There is a circumferential disc bulge and small right paracentral disc protrusion. There is mild spinal canal narrowing. There is no significant foraminal stenosis. L4-5: There is a small left posterior lateral disc protrusion. The disc material comes in close contact with the left L5 nerve root as it separates from the thecal sac. L5-S1: There is marked disc degeneration. There is no significant spinal stenosis. There is bilateral foraminal narrowing. Postsurgical changes are present at this level. The conus medullaris and cauda equina appear normal. IMPRESSION: 1. Multilevel spondylitic changes as described above. 2. The examination is most significant for small left posterior lateral disc protrusion at the L4-5 level. The disc material comes in close contact with the left L5 nerve root as it separates from the thecal sac. 3. Small right paracentral disc protrusion at the L3-4 level 4. Bilateral foraminal narrowing at the L5-S1 level. Electronically signed by: Florian Kauffman M.D. 05/27/2017 6:57 AM Dictated Date/Time: 05/27/2017 6:52 AM
== END 2017-05-27 06:32 | disposition home or self-care (01) ==
LOC: C.EDB 23:32
DX: M54.16 Radiculopathy, lumbar region (principal); M79.89 Other specified soft tissue disorders; I10 Essential (primary) hypertension; E78.00 Pure hypercholesterolemia, unspecified; F17.210 Nicotine dependence, cigarettes, uncomplicated

== ENCOUNTER 2017-06-09 15:01 | Inpatient (IN) | payer OTHER ==
[~2017-06-09] VITALS: Ht 175.3 cm; Wt 77.6 kg
[~2017-06-09 15:01] MED LIST changes: -ASPI81TA28 PO; -ATV5X PO; -CYCL5TAB PO; -DILT1CAP15 PO; -DXM/4 PO; -GABA1CAP4 PO; -LDDP5 TD; -LIDOCAINE HCL 1% MPF 5 ML VIAL ONE; -LISI-461 PO; -NAPR500T3 PO; -NRV/5 PO; -OXYC-57 PO; -SODIUM CHLORIDE 0.9% INJ 10 ML VIAL ONE; -ZCR40 PO
[2017-06-09] MEDS ORDERED: ONDANSETRON INJ 2 MG/ML 2 ML VIAL IV STA (15:59)
[2017-06-09] MEDS ORDERED: HYDROmorphone INJ 0.5 MG/0.5 ML SYR IM PRN (16:00)
--- NOTE | 2017-06-09 16:05 | EMERGENCY ROOM VISIT NOTE ---
History First contact with patient: 15:35 Chief Complaint: SWELLING TO EXTREMITY Stated Complaint: SWOLLEN LEGS History of Present Illness The patient is a 62 year old male who presents to the Emergency Room with 2 day h/o redness and warmth in LE b/l, w/ h/o 2 week swelling in LE since onset of back pain, for which he is being treated with surgery. Today was seen by pain mgmt, for a saddle block, but upon visualizing his LE, doc recommend he be seen by ED to r/o DVT. Pt's at bedside reports he is ambulatory with walker, but ambulation is limited to bedroom and bathroom, spends most of the day leaned over his kitchen counter to relieve his back pain. Pt denies CP, SOB. Denies h/o CHF or increased salt intake or weight gain. Denies nausea/vomiting, fevers/chills, diarrhea. PMH sig for TIA in 2015, resolved. SH: Smokes 1/2 ppd Review of Systems as above Past Medical/Surgical History Medical Problems: (1) Hypercholesteremia (2) Hypertension (3) TIA (transient ischemic attack) Family History Gallbladder disease Social History Smoking Status: Current Every Day Smoker (1/2 ppd) Alcohol Use: none Drug Use: none Marital Status: Housing Status: lives with significant other Occupation Status: unemployed Current/Historical Medications Scheduled Amlodipine Besylate (Amlodipine Besylate), 5 MG PO DAILY Aspirin (Aspirin Ec), 81 MG PO QPM Cholecalciferol (Vitamin D3), 1,000 INTER.UNIT PO QPM Diltiazem Hcl Coated Beads (Diltiazem Hcl Er), 360 MG PO QPM Gabapentin (Gabapentin), 300 MG PO TID Naproxen (Naproxen), 500 MG PO BID Simvastatin (Simvastatin), 40 MG PO QPM Scheduled PRN Fluticasone Furoate-Vilanterol (Breo Ellipta), 1 PUFF INH UD PRN for Shortness of Breath Lorazepam (Lorazepam), 0.5 MG PO BID PRN for Anxiety Physical Exam Vital Signs Date Time Temp Pulse Resp B/P (MAP) Pulse Ox O2 Delivery O2 Flow Rate FiO2 06/09/17 18:00 84 20 149/99 94 06/09/17 17:38 88 Room Air 06/09/17 17:38 Nasal Cannula 2.0 06/09/17 16:28 84 20 151/95 91 Room Air 06/09/17 15:51 89 06/09/17 15:10 36.7 93 18 141/84 93 Room Air Physical Exam as below General Appearance: WD/WN, + mild distress Eyes: EOMI, sclerae normal Respiratory/Chest: lungs clear, no respiratory distress, + pertinent finding (expiratory wheeze heard on exam bilaterally, lower bases.) Cardiovascular: regular rate, rhythm, no gallop Abdomen / GI: normal bowel sounds, non tender, soft Back: normal inspection, no CVA tenderness Extremities: + pedal edema (3 +, dry skin on shins, erythema and warmth to touch bilaterally. Old hematoma on RT palmer. Negative raymundo's sign b/l, however tender on posterior calf b/l and posterior hamstring b/l.) Neurologic/Psych: alert, normal mood/affect Medical Decision & Procedures Laboratory Results 06/09/17 16:17 Red Blood Count 4.41, Mean Corpuscular Volume 89.8, Mean Corpuscular Hemoglobin 31.5, Mean Corpuscular Hemoglobin Concent 35.1, Mean Platelet Volume 8.9, Neutrophils (%) (Auto) 61.4, Lymphocytes (%) (Auto) 26.4, Monocytes (%) (Auto) 7.5, Eosinophils (%) (Auto) 3.8, Basophils (%) (Auto) 0.7, Neutrophils # (Auto) 3.76, Lymphocytes # (Auto) 1.61, Monocytes # (Auto) 0.46, Eosinophils # (Auto) 0.23, Basophils # (Auto) 0.04 06/09/17 16:17 Test 06/09/17 16:17 06/09/17 17:39 06/09/17 18:45 White Blood Count 6.11 K/uL (4.8-10.8) Red Blood Count 4.41 M/uL (4.7-6.1) Hemoglobin 13.9 g/dL (14.0-18.0) Hematocrit 39.6 % (42-52) Mean Corpuscular Volume 89.8 fL (80-100) Mean Corpuscular Hemoglobin 31.5 pg (25-34) Mean Corpuscular Hemoglobin Concent 35.1 g/dl (32-36) Platelet Count 275 K/uL (130-400) Mean Platelet Volume 8.9 fL (7.4-10.4) Neutrophils (%) (Auto) 61.4 % Lymphocytes (%) (Auto) 26.4 % Monocytes (%) (Auto) 7.5 % Eosinophils (%) (Auto) 3.8 % Basophils (%) (Auto) 0.7 % Neutrophils # (Auto) 3.76 K/uL (1.4-6.5) Lymphocytes # (Auto) 1.61 K/uL (1.2-3.4) Monocytes # (Auto) 0.46 K/uL (0.11-0.59) Eosinophils # (Auto) 0.23 K/uL (0-0.5) Basophils # (Auto) 0.04 K/uL (0-0.2) RDW Standard Deviation 45.1 fL (36.4-46.3) RDW Coefficient of Variation 13.8 % (11.5-14.5) Immature Granulocyte % (Auto) 0.2 % Immature Granulocyte # (Auto) 0.01 K/uL (0.00-0.02) Anion Gap 6.0 mmol/L (3-11) Est Creatinine Clear Calc Drug Dose 74.9 ml/min Estimated GFR () 91.3 Estimated GFR (Non- 78.8 BUN/Creatinine Ratio 13.4 (10-20) Calcium Level 9.4 mg/dl (8.5-10.1) Total Bilirubin 0.4 mg/dl (0.2-1) Aspartate Amino Transf (AST/SGOT) 34 U/L (15-37) Alanine Aminotransferase (ALT/SGPT) 73 U/L (12-78) Alkaline Phosphatase 254 U/L (45-117) Total Protein 7.4 gm/dl (6.4-8.2) Albumin 3.9 gm/dl (3.4-5.0) Globulin 3.5 gm/dl (2.5-4.0) Albumin/Globulin Ratio 1.1 (0.9-2) Prothrombin Time 11.8 SECONDS (9.0-12.0) Prothromb Time International Ratio 1.1 (0.9-1.1) Activated Partial Thromboplast Time 29.6 SECONDS (21.0-31.0) Partial Thromboplastin Ratio 1.1 Urine Color YELLOW Urine Appearance CLEAR (CLEAR) Urine pH 8.0 (4.5-7.5) Urine Specific [place] 1.016 (1.000-1.030) Urine Protein NEG (NEG) Urine Glucose (UA) NEG (NEG) Urine Ketones NEG (NEG) Urine Occult Blood TRACE (NEG) Urine Nitrite NEG (NEG) Urine Bilirubin NEG (NEG) Urine Urobilinogen NEG (NEG) Urine Leukocyte Esterase NEG (NEG) Urine WBC (Auto) 0 /hpf (0-5) Urine RBC (Auto) 0-4 /hpf (0-4) Urine Hyaline Casts (Auto) 0 /lpf (0-5) Urine Epithelial Cells (Auto) 0-5 /lpf (0-5) Urine Bacteria (Auto) NEG (NEG) Medications Administered Medications (Trade) Dose Ordered Sig/Yoav Route Start Time Stop Time Status Last Admin Dose Admin Ondansetron HCl (Zofran Inj) 4 mg NOW STAT IV 06/09/17 15:59 06/09/17 16:00 DC 06/09/17 16:30 4 MG Hydromorphone HCl (Dilaudid Inj) 0.5 mg Q30M PRN IV 06/09/17 16:45 06/23/17 15:59 06/09/17 18:02 0.5 MG Ceftriaxone Sodium (Rocephin Inj) 1 gm NOW STAT IV 06/09/17 18:20 06/09/17 18:21 DC 06/09/17 18:43 1 GM ED Course 1537 reviewed records, saw and assessed pt. Attending ordered DVT labs and venous dopplers. 1600 ordered dilaudid .5 mcg q30m prn for pain. Blood cx x2 ordered. 1700 WBC normal. Venous dopplers normal. CT abd/pelv ordered to check for IVC thrombus. 1730 CT abd/pelv negative for IVC thrombus [address] Cordero hospitalist service, dec to admit Medical Decision The patient is a 62 year old male who presents to the Emergency Room with 2 day h/o redness and warmth in LE b/l, w/ h/o 2 week swelling in LE since onset of back pain, for which he is being treated with surgery. Today was seen by pain mgmt, for a saddle block, but upon visualizing his LE, doc recommend he be seen by ED to r/o DVT. Pt's at bedside reports he is ambulatory with walker, but ambulation is limited to bedroom and bathroom, spends most of the day leaned over his kitchen counter to relieve his back pain. WBC wnl, venous dopplers normal b/l, IVC patent on CT. Omnicef running for bilateral lower extremity cellulitis, decision made to admit for further work up of bilateral lower ext cellulitis. Back pain still uncontrolled with Dilaudid q30m. Ddx: DVT, PE, IVC thrombus, cellulitis, venous stasis. Impression Primary Impression: Cellulitis Departure Information Patient Instructions My [facility] Resident Tracking Resident Involvement: Resident Care Provided Care Provided: Adult ED Problem Qualifiers Primary Impression: Cellulitis Site of cellulitis: extremity Site of cellulitis of extremity: lower extremity Laterality: unspecified laterality Qualified Codes: L03.119 - Cellulitis of unspecified part of limb
[2017-06-09] MEDS ORDERED: GABA1CAP4 PO (16:06)
[2017-06-09] MEDS ORDERED: NRV/5 PO (16:06)
[2017-06-09] MEDS ORDERED: DILT1CAP15 PO (16:06)
[2017-06-09] MEDS ORDERED: ZCR40 PO (16:06)
[2017-06-09] MEDS ORDERED: NAPR500T3 PO (16:06)
[2017-06-09] MEDS ORDERED: ATV5X PO (16:06)
[2017-06-09] MEDS ORDERED: ASPI81TA28 PO (16:08)
[2017-06-09] MEDS: HYDROmorphone INJ 0.5 MG/0.5 ML SYR IV PRN ×3 (16:35→21:44)
[2017-06-09 16:38] LABS: BASO % 0.7 %; BASO ABS # 0.04 K/uL (0-0.2); EOS % 3.8 %; EOS ABS # 0.23 K/uL (0-0.5); HEMATOCRIT 39.6 % (42-52); HEMOGLOBIN 13.9 g/dL (14.0-18.0); IG# 0.01 K/uL (0.00-0.02); LYMPH % 26.4 %; LYMPH ABS # 1.61 K/uL (1.2-3.4); MEAN CELL VOLUME 89.8 fL (80-100); MEAN CORPUSCULAR HEMOGLOBIN 31.5 pg (25-34); MEAN CORPUSCULAR HGB CONC 35.1 g/dl (32-36); MEAN PLATELET VOLUME 8.9 fL (7.4-10.4); MONO % 7.5 %; MONO ABS # 0.46 K/uL (0.11-0.59); NEUT % 61.4 %; NEUT ABS # 3.76 K/uL (1.4-6.5); PLATELET COUNT 275 K/uL (130-400); RED CELL DISTRIBUTION WIDTH CV 13.8 % (11.5-14.5); RED CELL DISTRIBUTION WIDTH SD 45.1 fL (36.4-46.3); WHITE BLOOD COUNT 6.11 K/uL (4.8-10.8)
[2017-06-09 16:56] LABS: ALBUMIN 3.9 gm/dl (3.4-5.0); CALCIUM 9.4 mg/dl (8.5-10.1); CREATININE 1.01 mg/dl (0.60-1.40); POTASSIUM 3.9 mmol/L (3.5-5.1)
[2017-06-09 16:59] LABS: TOTAL PROTEIN 7.4 gm/dl (6.4-8.2)
--- NOTE | 2017-06-09 17:13 | EMERGENCY ROOM VISIT NOTE ---
History First contact with patient: 15:34 Chief Complaint: SWELLING TO EXTREMITY Stated Complaint: SWOLLEN LEGS History of Present Illness The patient is a 62 year old male who presents to the Emergency Room with complaints of leg swelling and back pain. The patient has a known history of back pain. He was under the care of Dr. House and was supposed to receive a caudal injection today however when he arrived at the office and was examined he was found to have significant leg redness and edema. This was a new problem that has just developed. The patient has been very debilitated by his back pain and has been sitting around quite a bit. There was concerns for possible DVT or infection and he was sent to the emergency department for further evaluation. The patient notes continued significant pain in his back. He denies any saddle anesthesia or bowel or bladder incontinence. He has been using pain medication at home and trying different positions with only minimal relief. No history of DVT but he does have a history of a cellulitis on the right leg. This currently involves both legs. Pt denies LOC, headache, fevers , chills, diaphoresis, visual changes, neck pain, chest pain, breathing difficulties, nausea, vomiting, abdominal pain, melena, hematochezia, urinary symptoms, numbness, weakness, lymphadenopathy, or other complaints. Review of Systems See HPI for pertinent positives and negatives. A total of ten systems were reviewed and were otherwise negative. Past Medical/Surgical History Medical Problems: (1) Hypercholesteremia (2) Hypertension (3) TIA (transient ischemic attack) Family History Gallbladder disease Social History Smoking Status: Current Every Day Smoker Alcohol Use: none Drug Use: none Marital Status: Housing Status: lives with significant other Occupation Status: unemployed Current/Historical Medications Scheduled Amlodipine Besylate (Amlodipine Besylate), 5 MG PO DAILY Aspirin (Aspirin Ec), 81 MG PO QPM Cholecalciferol (Vitamin D3), 1,000 INTER.UNIT PO QPM Diltiazem Hcl Coated Beads (Diltiazem Hcl Er), 360 MG PO QPM Gabapentin (Gabapentin), 300 MG PO TID Naproxen (Naproxen), 500 MG PO BID Simvastatin (Simvastatin), 40 MG PO QPM Scheduled PRN Fluticasone Furoate-Vilanterol (Breo Ellipta), 1 PUFF INH UD PRN for Shortness of Breath Lorazepam (Lorazepam), 0.5 MG PO BID PRN for Anxiety Physical Exam Vital Signs Date Time Temp Pulse Resp B/P (MAP) Pulse Ox O2 Delivery O2 Flow Rate FiO2 06/09/17 18:00 84 20 149/99 94 06/09/17 17:38 88 Room Air 06/09/17 17:38 Nasal Cannula 2.0 06/09/17 16:28 84 20 151/95 91 Room Air 06/09/17 15:51 89 06/09/17 15:10 36.7 93 18 141/84 93 Room Air Physical Exam GENERAL: Awake, alert, uncomfortable, in no distress HENT: Normocephalic, atraumatic. Oropharynx unremarkable. EYES: Normal conjunctiva. Sclera non-icteric. NECK: Supple. No nuchal rigidity. FROM. No JVD. RESPIRATORY: Clear to auscultation. CARDIAC: Regular rate, normal rhythm. Extremities warm and well perfused. Pulses equal. ABDOMEN: Soft, non-distended. No tenderness to palpation. No rebound or guarding. No masses. MUSCULOSKELETAL: Chest examination reveals no tenderness. The back is symmetrical on inspection without obvious abnormality. There is no CVA tenderness to palpation. No joint edema. LOWER EXTREMITIES: Calves are equal size bilaterally and non-tender, negative Homans sign. 2+ lower extremity edema up to the knees without seeping. There is no blistering. There is warmth bilaterally and erythema of both lower extremities that extends above the knees that is concerning for cellulitis. NEURO: Normal sensorium. No saddle anesthesia. No sensory or motor deficits noted. SKIN: No rash or jaundice noted. Medical Decision & Procedures Laboratory Results 06/09/17 16:17 Red Blood Count 4.41, Mean Corpuscular Volume 89.8, Mean Corpuscular Hemoglobin 31.5, Mean Corpuscular Hemoglobin Concent 35.1, Mean Platelet Volume 8.9, Neutrophils (%) (Auto) 61.4, Lymphocytes (%) (Auto) 26.4, Monocytes (%) (Auto) 7.5, Eosinophils (%) (Auto) 3.8, Basophils (%) (Auto) 0.7, Neutrophils # (Auto) 3.76, Lymphocytes # (Auto) 1.61, Monocytes # (Auto) 0.46, Eosinophils # (Auto) 0.23, Basophils # (Auto) 0.04 06/09/17 16:17 Test 06/09/17 16:17 06/09/17 17:39 06/09/17 18:45 White Blood Count 6.11 K/uL (4.8-10.8) Red Blood Count 4.41 M/uL (4.7-6.1) Hemoglobin 13.9 g/dL (14.0-18.0) Hematocrit 39.6 % (42-52) Mean Corpuscular Volume 89.8 fL (80-100) Mean Corpuscular Hemoglobin 31.5 pg (25-34) Mean Corpuscular Hemoglobin Concent 35.1 g/dl (32-36) Platelet Count 275 K/uL (130-400) Mean Platelet Volume 8.9 fL (7.4-10.4) Neutrophils (%) (Auto) 61.4 % Lymphocytes (%) (Auto) 26.4 % Monocytes (%) (Auto) 7.5 % Eosinophils (%) (Auto) 3.8 % Basophils (%) (Auto) 0.7 % Neutrophils # (Auto) 3.76 K/uL (1.4-6.5) Lymphocytes # (Auto) 1.61 K/uL (1.2-3.4) Monocytes # (Auto) 0.46 K/uL (0.11-0.59) Eosinophils # (Auto) 0.23 K/uL (0-0.5) Basophils # (Auto) 0.04 K/uL (0-0.2) RDW Standard Deviation 45.1 fL (36.4-46.3) RDW Coefficient of Variation 13.8 % (11.5-14.5) Immature Granulocyte % (Auto) 0.2 % Immature Granulocyte # (Auto) 0.01 K/uL (0.00-0.02) Anion Gap 6.0 mmol/L (3-11) Est Creatinine Clear Calc Drug Dose 74.9 ml/min Estimated GFR () 91.3 Estimated GFR (Non- 78.8 BUN/Creatinine Ratio 13.4 (10-20) Calcium Level 9.4 mg/dl (8.5-10.1) Total Bilirubin 0.4 mg/dl (0.2-1) Aspartate Amino Transf (AST/SGOT) 34 U/L (15-37) Alanine Aminotransferase (ALT/SGPT) 73 U/L (12-78) Alkaline Phosphatase 254 U/L (45-117) Total Protein 7.4 gm/dl (6.4-8.2) Albumin 3.9 gm/dl (3.4-5.0) Globulin 3.5 gm/dl (2.5-4.0) Albumin/Globulin Ratio 1.1 (0.9-2) Prothrombin Time 11.8 SECONDS (9.0-12.0) Prothromb Time International Ratio 1.1 (0.9-1.1) Activated Partial Thromboplast Time 29.6 SECONDS (21.0-31.0) Partial Thromboplastin Ratio 1.1 Medications Administered Medications (Trade) Dose Ordered Sig/Yoav Route Start Time Stop Time Status Last Admin Dose Admin Ondansetron HCl (Zofran Inj) 4 mg NOW STAT IV 06/09/17 15:59 06/09/17 16:00 DC 06/09/17 16:30 4 MG Hydromorphone HCl (Dilaudid Inj) 0.5 mg Q30M PRN IV 06/09/17 16:45 06/23/17 15:59 06/09/17 18:02 0.5 MG Ceftriaxone Sodium (Rocephin Inj) 1 gm NOW STAT IV 06/09/17 18:20 06/09/17 18:21 DC 06/09/17 18:43 1 GM Medical Decision Prior records reviewed and summarized above. Triage Nursing notes reviewed and agree them. Additional history obtained from the family. The patient's history was concerning for swelling and pain in the legs. Differential diagnosis: Etiologies such as DVT, joint effusion, infection, trauma, muscular, lymphedema , idiopathic, CHF, IVC compression, as well as others were entertained.. Physical examination: As above. Neurovascularly intact. ER treatment provided: IV Zofran IV Dilaudid On reassessment the patient felt better. IV Rocephin Diagnostics interpreted by me: The labs revealed an unremarkable CBC and chemistry panel. Imaging studies: Ultrasound imaging did not reveal any evidence of DVT. CT imaging of the abdomen and pelvis was performed and did not reveal any evidence of IVC clot or compression. No emergent pathology noted. Consultation: A consultation was placed with the hospitalist. The case was discussed and diagnostics were reviewed. The patient was evaluated in the ER for further treatment. The patient was seen and examined with Dr. Edgar, resident physician. We discussed the case and treatments ordered, reviewed the results, and determine the disposition. Please refer to the resident's note for additional details. I have been directly involved with the management and disposition as well as independently evaluated the patient as documented in this note. Impression Primary Impression: Swelling of left extremity Additional Impressions: Swelling of right extremity Cellulitis Departure Information Dispostion Being Evaluated By Hospitalist Referrals Kris Reese M.D. (PCP) Patient Instructions My [facility] Problem Qualifiers Additional Impressions: Cellulitis Site of cellulitis: extremity Site of cellulitis of extremity: lower extremity Laterality: unspecified laterality Qualified Codes: L03.119 - Cellulitis of unspecified part of limb
--- NOTE | 2017-06-09 17:25 | DIAGNOSTIC IMAGING REPORT ---
BILATERAL LOWER EXTREMITY VENOUS DOPPLER HISTORY: Lower extremity edema. COMPARISON STUDY: None. FINDINGS: There is normal compressibility, flow, and augmentation within the bilateral lower extremity deep venous systems. Mild subcutaneous edema within the left posterior calf. IMPRESSION: No DVT within the right or left lower extremity. Electronically signed by: Jayce Hoffman M.D. 06/09/2017 5:24 PM Dictated Date/Time: 06/09/2017 5:23 PM
[2017-06-09] MEDS ORDERED: OPTIRAY 320 IV PRN (17:45)
[2017-06-09 18:07] LABS: INR 1.1 (0.9-1.1); PTT PATIENT 29.6 SECONDS (21.0-31.0)
--- NOTE | 2017-06-09 18:16 | DIAGNOSTIC IMAGING REPORT ---
CT OF THE ABDOMEN AND PELVIS WITH CONTRAST CLINICAL HISTORY: Bilateral lower leg swelling. Evaluate for venous thrombus. COMPARISON STUDY: Renal ultrasound March 09, 2006. TECHNIQUE: Following IV administration of 94 mL of [id number]-320, axial images of the abdomen and pelvis were obtained from the lung bases to the proximal femurs. Images were reviewed in the axial, sagittal, and coronal planes. IV contrast was administered without complication. A dose lowering technique was utilized adhering to the principles of ALARA. CT DOSE: 335.48 mGy.cm FINDINGS: Mild biliary ductal dilatation is likely related to cholecystectomy. There is no pancreatic ductal dilatation. Multiple water attenuation renal lesions likely reflect cysts. A few subcentimeter lesions are too small to characterize. There is no hydronephrosis. The spleen, adrenal glands and pancreas are unremarkable. There is moderate plaque of the abdominal aorta. There is no aneurysmal dilatation. Caliber and wall thickness of small and large bowel are normal. There is colonic diverticulosis without evidence for acute diverticulitis. There is no ascites. There is no lymphadenopathy. Old right iliac bone deformity is noted as well as postoperative findings within the lumbosacral spine. The inferior vena cava is patent. The bilateral external iliac and common femoral veins are also patent. No suspicious osseous lesions are present. IMPRESSION: 1. No venous thrombus identified. Patent IVC and bilateral common iliac and external iliac veins. 2. Mild biliary ductal dilatation which is likely related to prior cholecystectomy however could be correlated with obstructive liver function tests. 3. No mass or lymphadenopathy within the abdomen or pelvis. Electronically signed by: Dirk Weinberg M.D. 06/09/2017 6:14 PM Dictated Date/Time: 06/09/2017 6:01 PM
[2017-06-09] MEDS ORDERED: CEFTRIAXONE SOD INJ 1 GM ADDVIAL IV STA (18:20)
--- NOTE | 2017-06-09 19:20 | History and Physical ---
History & Physical Date & Time of Service: Jun 09, 2017 at 19:02 Chief Complaint: Swollen Legs Primary Care Physician: Kris Reese M.D. History of Present Illness Source: patient, spouse 62yo male with h/o HTN, TIA, and hyperlipidemia who presents with leg swelling bilaterally for about 2-3 weeks as well as worsening redness of the legs starting about 2-3 days ago. He has had multiple ER visits as well as office visits with pain management for his back. He was just started on gabapentin in May for his back as well as 2 rounds of prednisone during that same time. MRI of the lumbar spine showed an L4-L5 herniated disc with L5 nerve root impingement. No fevers or chills. Appetite has been ok but thinks he hasn't been eating well. Patient reports he was treated for cellulitis in April after visiting the ER for redness of his legs. He took an antibiotic after that visit but has not been on antibiotics since then. He mentions he has been taking naprosyn "For some time" but couldn't tell me how long. His medication list shows he takes amlodipine AND diltiazem but he states he only takes 1 of them; both he and his are unsure which medication he in fact takes. Past Medical/Surgical History PMH: 1. herniated lumbar disc 2. HTN 3. hyperlipidemia 4. h/o TIA 5. tobacco dependence 6. COPD PSH: early 30's - lumbar spine surgery cholecystectomy left knee meniscectomy Family History father - from cancer - type? mother - from complications of surgery for her bladder Social History Smoking Status: Current Every Day Smoker (1/2 ppd) Alcohol Use: occasionally Drug Use: none Marital Status: (2 children, 1 from prior marriage ) Housing status: lives with family (in [place] ) Occupational Status: disabled (hasn't worked since his 30s ) Multi-Drug Resistant Organisms History of MDRO: No Allergies Coded Allergies: No Known Allergies (Verified , 06/09/17) Home Medications Scheduled Amlodipine Besylate (Amlodipine Besylate), 5 MG PO DAILY Aspirin (Aspirin Ec), 81 MG PO QPM Cholecalciferol (Vitamin D3), 1,000 INTER.UNIT PO QPM Diltiazem Hcl Coated Beads (Diltiazem Hcl Er), 360 MG PO QPM Gabapentin (Gabapentin), 300 MG PO TID Naproxen (Naproxen), 500 MG PO BID Simvastatin (Simvastatin), 40 MG PO QPM Scheduled PRN Fluticasone Furoate-Vilanterol (Breo Ellipta), 1 PUFF INH UD PRN for Shortness of Breath Lorazepam (Lorazepam), 0.5 MG PO BID PRN for Anxiety Review of Systems Constitutional: No fever, No chills, No weight loss Eyes: No worsening of vision ENT: No nasal symptoms, No sore throat, No trouble swallowing Respiratory: + dyspnea on exertion, No cough, No shortness of breath Cardiovascular: + edema, No chest pain, No orthopnea, No PND Abdomen: No pain, No nausea, No vomiting, No constipation Musculoskeletal: + problem reported (back pain - lumbar ) Genitourinary - Male: No dysuria, No urinary retention Neurologic: + numbness/tingling (left buttock and left leg, posteriorly ) Psychiatric: + anxiety, No depression symptoms Hematologic / Lymphatic: No abnormal bleeding/bruising Integumentary: + rash (shins of legs) Physical Exam Vital Signs Date Time Temp Pulse Resp B/P (MAP) Pulse Ox O2 Delivery O2 Flow Rate FiO2 06/09/17 18:00 84 20 149/99 94 06/09/17 17:38 88 Room Air 06/09/17 17:38 Nasal Cannula 2.0 06/09/17 16:28 84 20 151/95 91 Room Air 06/09/17 15:51 89 06/09/17 15:10 36.7 93 18 141/84 93 Room Air General Appearance: + moderate distress (due to back/buttock/left leg pain he constantly is shifting on the gurney, sometimes standing to get comfortable) Head: normocephalic, atraumatic Eyes: PERRL ENT: TMs normal, pharynx normal Neck: supple, no adenopathy, thyroid normal, no JVD Respiratory/Chest: no respiratory distress, no accessory muscle use, + wheezing (extensive b/l -- all lobes) Cardiovascular: regular rate, rhythm, no gallop, no murmur, normal peripheral pulses Abdomen/GI: normal bowel sounds, non tender, soft, no organomegaly Back: normal inspection, + decreased range of motion (due to pain) Extremities/Musculoskelatal: + pedal edema, + swelling (2-3+ b/l extending up to the knees) Neurologic/Psych: alert, normal mood/affect, normal reflexes (upper exts and both knees, 2+ ), oriented x 3 Skin: + pertinent finding (b/l shins - there is a background of hyperpigmented , scaly skin covering both shins, somewhat worse on the right leg. There is a mild-moderate erythematous rash covering the anterior shins and to a lesser degree the backs of the legs as well; some of the erythema extends to the ankles but largely spares the feet. rash stops just below the knees. there are numerous petechiale type lesions throughout the areas of erythema. soles of feet spared. ) Diagnostics Laboratory Results Results Past 24 Hours Test 06/09/17 16:17 06/09/17 17:39 06/09/17 18:45 Range/Units White Blood Count 6.11 4.8-10.8 K/uL Red Blood Count 4.41 4.7-6.1 M/uL Hemoglobin 13.9 14.0-18.0 g/dL Hematocrit 39.6 42-52 % Mean Corpuscular Volume 89.8 80-100 fL Mean Corpuscular Hemoglobin 31.5 25-34 pg Mean Corpuscular Hemoglobin Concent 35.1 32-36 g/dl Platelet Count 275 130-400 K/uL Mean Platelet Volume 8.9 7.4-10.4 fL Neutrophils (%) (Auto) 61.4 % Lymphocytes (%) (Auto) 26.4 % Monocytes (%) (Auto) 7.5 % Eosinophils (%) (Auto) 3.8 % Basophils (%) (Auto) 0.7 % Neutrophils # (Auto) 3.76 1.4-6.5 K/uL Lymphocytes # (Auto) 1.61 1.2-3.4 K/uL Monocytes # (Auto) 0.46 0.11-0.59 K/uL Eosinophils # (Auto) 0.23 0-0.5 K/uL Basophils # (Auto) 0.04 0-0.2 K/uL RDW Standard Deviation 45.1 36.4-46.3 fL RDW Coefficient of Variation 13.8 11.5-14.5 % Immature Granulocyte % (Auto) 0.2 % Immature Granulocyte # (Auto) 0.01 0.00-0.02 K/uL Sodium Level 134 136-145 mmol/L Potassium Level 3.9 3.5-5.1 mmol/L Chloride Level 99 98-107 mmol/L Carbon Dioxide Level 29 21-32 mmol/L Anion Gap 6.0 3-11 mmol/L Blood Urea Nitrogen 14 7-18 mg/dl Creatinine 1.01 0.60-1.40 mg/dl Est Creatinine Clear Calc Drug Dose 74.9 ml/min Estimated GFR () 91.3 Estimated GFR (Non- 78.8 BUN/Creatinine Ratio 13.4 10-20 Random Glucose 90 70-99 mg/dl Calcium Level 9.4 8.5-10.1 mg/dl Total Bilirubin 0.4 0.2-1 mg/dl Aspartate Amino Transf (AST/SGOT) 34 15-37 U/L Alanine Aminotransferase (ALT/SGPT) 73 12-78 U/L Alkaline Phosphatase 254 45-117 U/L Total Protein 7.4 6.4-8.2 gm/dl Albumin 3.9 3.4-5.0 gm/dl Globulin 3.5 2.5-4.0 gm/dl Albumin/Globulin Ratio 1.1 0.9-2 Prothrombin Time 11.8 9.0-12.0 SECONDS Prothromb Time International Ratio 1.1 0.9-1.1 Activated Partial Thromboplast Time 29.6 21.0-31.0 SECONDS Partial Thromboplastin Ratio 1.1 Microbiology Results 06/09/17 Blood Culture, Received Pending 06/09/17 Blood Culture, Received Pending Diagnostic Radiology 1. CT abd/pelvis - IMPRESSION: 1. No venous thrombus identified. Patent IVC and bilateral common iliac and external iliac veins. 2. Mild biliary ductal dilatation which is likely related to prior cholecystectomy however could be correlated with obstructive liver function tests. 3. No mass or lymphadenopathy within the abdomen or pelvis. 2. b/l LE venous duplex studies NEGATIVE for DVT EKG EKG - my reading - NSR, NO ST changes. Impression Assessment and Plan 62yo male with tobacco dependence, COPD, recently diagnosed L4-L5 herniated disc with radiculopathy, HTN, and prior TIA presenting with several weeks of LE edema and 2-3 days of erythema of the legs. 1. lower extremity edema b/l with erythematous rash b/l - he has no symptoms/ signs of CHF, liver failure, or renal failure. Dopplers are negative for DVT and abd/pelvic CT does not show any compressive process that would cause his edema. Check TSH in AM to exclude hypothyroid state. He has no prior h/o venous insufficiency or edema. He is on multiple medications that can cause edema including amlodipine (or diltiazem), naprosyn, gabapentin, and had recent courses of prednisone as well. It is possible that the combination of all of these agents caused his edema. Will stop CCBs, NSAIDs, and the gabapentin. The gabapentin was not helping his back or radiculopathy anyway. Lasix 20mg PO x 1. Elevate legs when possible. With respect to the rash - I am unclear if this is truly a b/l LE cellulitis vs some other entity. He received IV rocephin in the ER for possible cellulitis. Some of the background rash appears chronic (the brawny, hyperpigmented, scaly portions suggest chronic stasis changes). The erythematous petechial rash could be infectious but could be a reaction such as leukocytoclastic vasculitis. NSAIDs have been known to cause such reaction. Plan - * d/c the CCB, NSAIDs, and gabapentin * hold off on additional abx; can defer to daytime MD about continuing abx * check sed rate, crp - if very high this could suggest leukocytoclastic vasculitis * start decadron 4mg IV q6h - if the rash is reaction the steroids should help; the decadron may also help his back as well 2. COPD - with question early exacerbation? - in the ER the patient became hypoxic and O2 was applied. He has extensive wheezing. The patient reports no recent or active pulmonary symptoms, however. He may have become hypoxic when narcotics were given. Never the less the decadron may improve his wheezing. Cont inhalers (substitute symbicort for breo) and offer combivent q6h. 3. HTN - stop the CCB due to the edema. Substitute losartan 25mg daily in its place. 4. h/o TIA - continue aspirin for secondary prevention. 5. tobacco dependence - nicoderm patch; admissions counselor to quit. 6. L4-L5 herniated disc with left L5 nerve root impingement - was to have an epidural steroid injection today but was canceled once pain management, Dr. House, saw his legs. Hopefully steroids will help. Continue oxycodone prn; try dilaudid 0.5mg IV q3h prn as well. Try baclofen 5mg TID prn for muscle relaxation. K-pad heating system. PT, OT evals. 7. DVT proph - lovenox 40mg daily. 8. elevated alk phos - uncertain cause; would simply repeat in 2 days and if still elevated then check vitamin D level, etc. patient wishes to be level 5 DNR; this was confirmed in presence of who states he has previously voiced this wish Level of Care Med/Surg Resuscitation Status DO NOT RESUSCITATE VTE Prophylaxis Risk Level: Moderate Given or contraindicated: Enoxaparin (Lovenox)SQ Social Service Consult None Apply Note total time about 60 minutes
[2017-06-09] MEDS ORDERED: HYDROmorphone INJ 1 MG/ML SYR IV STA (19:37)
[2017-06-09] MEDS ORDERED: MAGNESIUM HYDROXIDE SUSP 30 ML UDC PO PRN (19:45)
[2017-06-09] MEDS ORDERED: ACETAMINOPHEN 325 MG TAB PO PRN (19:45)
[2017-06-09] MEDS ORDERED: BACLOFEN 10 MG TAB PO PRN (19:45)
[2017-06-09] MEDS ORDERED: ALUMINUM/MAGNESIUM/SIMETH (MAALOX MAX) 30 ML UDC PO PRN (19:45)
[2017-06-09] MEDS ORDERED: LORAZEPAM 0.5 MG TAB PO PRN (19:45)
[2017-06-09] MEDS ORDERED: FUROSEMIDE 40 MG TAB PO ONE (19:45)
[2017-06-09] MEDS ORDERED: ONDANSETRON INJ 2 MG/ML 2 ML VIAL IV PRN (19:45)
[2017-06-09] MEDS: IPRATROPIUM BROMIDE/ALBUTEROL respimat INH INH SCH (20:33)
[2017-06-09] MEDS: BUDESONIDE/FORMOTEROL FUMARATE 160/4.5 60 PUFFS/INHALER INH SCH (20:33)
[2017-06-09 20:48] VITALS: BP 142/83; PULSE 72; TEMP 36.5; O2SAT 93; Ht 175.3 cm; Wt 77.6 kg
[2017-06-09] MEDS ORDERED: CHOLECALCIFEROL 1000 INTER.UNIT TAB PO SCH (21:00)
[2017-06-09] MEDS ORDERED: ENOXAPARIN 40 MG/0.4 ML SYR SQ SCH (21:00)
[2017-06-09] MEDS ORDERED: ASPIRIN 81 MG ECTAB PO SCH (21:00)
[2017-06-09] MEDS ORDERED: SIMVASTATIN 40 MG TAB PO SCH (21:00)
[2017-06-09] MEDS: RANITIDINE HCL 150 MG TAB PO SCH (21:07)
[2017-06-09] MEDS ORDERED: NURSING VERBAL MED ORDER ONE (21:30)
[2017-06-09] MEDS: NICOTINE 14 MG/24 HR TDSY TD SCH (21:44)
[2017-06-09] MEDS: DEXAMETHASONE INJ 4 MG in SYRINGE 0 ML IV SCH (22:10)
[2017-06-09] MEDS: OXYCODONE HCL IR 5 MG TAB (IMMEDIATE RELEASE) PO PRN (22:34)
[2017-06-09 23:44] VITALS: BP 125/71; PULSE 74; TEMP 36.4; O2SAT 97
[2017-06-10] MEDS: HYDROmorphone INJ 0.5 MG/0.5 ML SYR IV PRN ×4 (02:23→14:49)
[2017-06-10] MEDS: DEXAMETHASONE INJ 4 MG in SYRINGE 0 ML IV SCH ×2 (03:40→09:52)
[2017-06-10] MEDS: OXYCODONE HCL IR 5 MG TAB (IMMEDIATE RELEASE) PO PRN ×3 (05:41→14:06)
[2017-06-10 06:13] LABS: BASO % 0.3 %; BASO ABS # 0.01 K/uL (0-0.2); HEMATOCRIT 38.5 % (42-52); HEMOGLOBIN 13.4 g/dL (14.0-18.0); LYMPH % 17.5 %; LYMPH ABS # 0.59 K/uL (1.2-3.4); MEAN CORPUSCULAR HEMOGLOBIN 31.3 pg (25-34); MEAN CORPUSCULAR HGB CONC 34.8 g/dl (32-36); MEAN PLATELET VOLUME 8.8 fL (7.4-10.4); MONO % 1.2 %; MONO ABS # 0.04 K/uL (0.11-0.59); NEUT ABS # 2.74 K/uL (1.4-6.5); PLATELET COUNT 248 K/uL (130-400); RED CELL DISTRIBUTION WIDTH CV 13.7 % (11.5-14.5); RED CELL DISTRIBUTION WIDTH SD 44.8 fL (36.4-46.3); WHITE BLOOD COUNT 3.38 K/uL (4.8-10.8)
[2017-06-10 06:37] LABS: CALCIUM 8.7 mg/dl (8.5-10.1); CREATININE 0.74 mg/dl (0.60-1.40); POTASSIUM 3.7 mmol/L (3.5-5.1)
[2017-06-10] MEDS: RANITIDINE HCL 150 MG TAB PO SCH (07:46)
[2017-06-10] MEDS: BUDESONIDE/FORMOTEROL FUMARATE 160/4.5 60 PUFFS/INHALER INH SCH (07:47)
[2017-06-10] MEDS: IPRATROPIUM BROMIDE/ALBUTEROL respimat INH INH SCH ×2 (07:47→11:39)
[2017-06-10] MEDS: NICOTINE 14 MG/24 HR TDSY TD SCH (07:47)
[2017-06-10 07:59] VITALS: BP 128/82; PULSE 86; TEMP 36.6; O2SAT 92
[2017-06-10] MEDS ORDERED: LOSARTAN POTASSIUM 25 MG TAB PO SCH (08:00)
[2017-06-10 08:11] VITALS: O2SAT 92
[2017-06-10] MEDS ORDERED: LISI-461 PO (13:50)
[2017-06-10] MEDS ORDERED: DXM/4 PO (13:50)
[2017-06-10] MEDS ORDERED: CYCL5TAB PO (13:50)
[2017-06-10] MEDS ORDERED: LDDP5 TD (13:50)
[2017-06-10] MEDS ORDERED: OXYC-57 PO (13:50)
[2017-06-10 13:59] VITALS: BP 128/82; PULSE 86; TEMP 36.6; O2SAT 92
--- NOTE | 2017-06-10 14:10 | Discharge Instructions ---
Discharge Instructions Date of Service Jun 10, 2017. Admission Reason for Admission: Cellulitis Discharge Discharge Diagnosis / Problem: Herniated Disc with Radiculopathy Discharge Goals Goal(s): Decrease discomfort, Improve function, Increase independence Activity Recommendations Activity Limitations: resume your previous activity . Instructions / Follow-Up Instructions / Follow-Up Lower Extremity Swelling and Reddened/Chew Rash: - There is no blood clots found in your legs. Unfortunately some of your blood pressure medications, NSAIDs, Gabapentin, and Prednisone could all be causing some chronic swelling and have discontinued these - There is no signs of infection in your legs and you will not need antibiotics at this time. - Your blood tests show that there is a lot of inflammation going on which suggests that possible the reddened areas could be a leukocytoclastic vasculitis or a local inflammation of the little vessels in this area. This also could be early chronic venous stasis when your veins are not as good at pushing blood out of your legs and can cause a reddened/chew color. As well , NSAIDs like Naprosyn can cause rash-like findings - Will give some pain medication, pain patch to use on the back, and a short course of steroids - Talked with Dr. House's office and they will call on Tuesday to reschedule your infection. From our perspective we would not have any reason to not have the injection done. Current Hospital Diet Patient's current hospital diet: AHA Diet (Heart Healthy) Discharge Diet Recommended Diet: AHA Diet (Heart Healthy) Pending Studies Studies pending at discharge: no Medical Emergencies . Who to Call and When: Medical Emergencies: If at any time you feel your situation is an emergency, please call 911 immediately. . Non-Emergent Contact Non-Emergency issues call your: Primary Care Provider Call Non-Emergent contact if: you have a fever, your pain is concerning you, you have any medication questions . . "Provider Documentation" section prepared by Ellie Taveras. . VTE Core Measure Inpt VTE Proph given/why not?: Enoxaparin (Lovenox)SQ
[2017-06-10] MEDS ORDERED: LIDODERM (LIDOCAINE) PATCH 5% TD ONE (14:30)
--- NOTE | 2017-06-10 16:44 | Discharge Summary ---
Discharge Summary Date of Service Jun 10, 2017. Discharge Summary Admission Date: Jun 09, 2017 at 19:42 Discharge Date: Jun 10, 2017 Discharge Disposition: Home Principal Diagnosis: Lumbar Back Pain with Radiculopathy and Venous Stasis vs Vasculitis Problems/Secondary Diagnoses: 1. Herniated Lumbar Disc 2. HTN 3. HLD 4. H/O TIA 5. Tobacco Dependence 6. COPD 7. S/P S/P Lumbar Spine Surgery 8. S/P Cholecystectomy 9. S/P L Knee Meniscectomy Procedures: BILATERAL LOWER EXTREMITY VENOUS DOPPLER FINDINGS: There is normal compressibility, flow, and augmentation within the bilateral lower extremity deep venous systems. Mild subcutaneous edema within the left posterior calf. IMPRESSION: No DVT within the right or left lower extremity. CT OF THE ABDOMEN AND PELVIS WITH CONTRAST FINDINGS: Mild biliary ductal dilatation is likely related to cholecystectomy. There is no pancreatic ductal dilatation. Multiple water attenuation renal lesions likely reflect cysts. A few subcentimeter lesions are too small to characterize. There is no hydronephrosis. The spleen, adrenal glands and pancreas are unremarkable. There is moderate plaque of the abdominal aorta. There is no aneurysmal dilatation. Caliber and wall thickness of small and large bowel are normal. There is colonic diverticulosis without evidence for acute diverticulitis. There is no ascites. There is no lymphadenopathy. Old right iliac bone deformity is noted as well as postoperative findings within the lumbosacral spine. The inferior vena cava is patent. The bilateral external iliac and common femoral veins are also patent. No suspicious osseous lesions are present. IMPRESSION: 1. No venous thrombus identified. Patent IVC and bilateral common iliac and external iliac veins. 2. Mild biliary ductal dilatation which is likely related to prior cholecystectomy however could be correlated with obstructive liver function tests. 3. No mass or lymphadenopathy within the abdomen or pelvis. Medication Reconciliation New Medications: Cyclobenzaprine Hcl (Flexeril) 5 Mg Tab 1 TAB PO TID PRN for Pain for 10 Days, #30 TAB Dexamethasone (Decadron) 4 Mg Tab 4 MG PO Q6H for 10 Days, #40 TAB Lisinopril (Lisinopril) 10 Mg Tab 1 TAB PO DAILY for 30 Days, #30 TAB 3 Refills Oxycodone/Acetaminophen 5MG/325MG (Percocet 5MG/325MG) Tab 1-2 TABLETS PO Q6H PRN for Pain, #30 TAB Lidocaine (Lidocaine) 1 Patch Tdsy 1 PATCH TD QAM for 10 Days, #10 PATCH 0 Refills Continued Medications: Aspirin (Aspirin Ec) 81 Mg Tab 81 MG PO QPM Cholecalciferol (Vitamin D3) 1,000 Unit Tab 1000 INTER.UNIT PO QPM, TAB Fluticasone Furoate-Vilanterol (Breo Ellipta) 1 Inh Inh 1 PUFF INH UD PRN for Shortness of Breath Lorazepam (Lorazepam) 0.5 Mg Tab 0.5 MG PO BID PRN for Anxiety Naproxen (Naproxen) 500 Mg Tab 500 MG PO BID Simvastatin (Simvastatin) 40 Mg Tab 40 MG PO QPM Discontinued Medications: Amlodipine Besylate (Amlodipine Besylate) 5 Mg Tab 5 MG PO DAILY Diltiazem Hcl Coated Beads (Diltiazem Hcl Er) 360 Mg Cap 360 MG PO QPM Gabapentin (Gabapentin) 300 Mg Cap 300 MG PO TID Discharge Exam ROS: General/Constitutional: Denies fever/chills ENT: Denies visual changes, nasal drainage, hearing loss, sore throat, trouble swallowing Cardiovascular: Denies chest pain, palpitations, edema Respiratory: Denies cough, sputum, SOB, wheezing, orthopnea GI: Denies nausea, vomiting, abdominal pain, constipation, diarrhea, melena/ hematochezia : Denies dysuria Musculoskeletal: + low back pain extending down LLE, + b/l edema of dorsum of feet Hematologic/Lymphatic: Denies bleeding/clotting abnormalities Skin: + long standing b/l brawny skin PHYSICAL EXAM: General Appearance: WDWN in NAD who is A&O x 3 HEENT: Head is normocephalic/atraumatic; EOMI; PERRLA; Hearing grossly intact Neck: Supple; Trachea midline; Neg JVD Heart: RRR with no M/G/R Lungs: CTA in all lung fisher bilaterally; Respirations unlabored; Neg accessory muscle use Abdomen: Soft, non-tender, non-distended; Positive BS x 4 quadrants Extremities: B/L LE dorsal edema 1-2+ pitting with L > R Neurological: Speech clear; Gross motor/sensory function intact - limitations to LLE due to pain; Neg focal neurologic deficits; point tenderness to L lower back near sacrum and point tenderness to L mid-glute Psychiatric: Appropriate mood/affect Skin: B/L LE brown discoloration with mild petechial-like rash, non-tender, not warm to touch Hospital Course ADMISSION: 62yo male with h/o HTN, TIA, and hyperlipidemia who presents with leg swelling bilaterally for about 2-3 weeks as well as worsening redness of the legs starting about 2-3 days ago. He has had multiple ER visits as well as office visits with pain management for his back. He was just started on gabapentin in May for his back as well as 2 rounds of prednisone during that same time. MRI of the lumbar spine showed an L4-L5 herniated disc with L5 nerve root impingement. No fevers or chills. Appetite has been ok but thinks he hasn't been eating well. Patient reports he was treated for cellulitis in April after visiting the ER for redness of his legs. He took an antibiotic after that visit but has not been on antibiotics since then. He mentions he has been taking naprosyn "For some time" but couldn't tell me how long. His medication list shows he takes amlodipine AND diltiazem but he states he only takes 1 of them; both he and his are unsure which medication he in fact takes. HOSPITAL COURSE: Mr. 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 Initial concern was for DVT given chronic swelling which was R/O on imaging. He was initially treated with antibiotics in the ED for suspected cellulitis. However, b/l legs with brawny coloring with mild petechial-like erythema with 1-2+ pitting edema of dorsum of the foot b/l with L > R. Legs are not warm to touch. Recommend to monitor off antibiotics at this time. Does have an elevated ESR and CRP but not extremely elevated but possible for leukocytoclastic vasculitis vs simple chronic venous stasis. Question possible swelling and coloration could be from medications as he is on a CCB (Diltiazem vs Amlodipine), Gabapentin, Steroids, NSAIDs. Recommended to stop these medications to monitor if they improve his symptoms. Was started on Lisinopril 10 mg daily in replacement of his antihypertensives. Will continue Decadron to help with radiculopathy and the possible vasculitis. Could consider PRN Lasix to help with swelling with careful monitoring of electrolytes and renal function. Did provide medication for pain including Lidocaine patch, Flexeril, and Percocet. Patient is hoping he can still get his back injection and that appointment will be rescheduled. Total Time Spent: Greater than 30 minutes This includes examination of the patient, discharge planning, medication reconciliation, and communication with other providers. Discharge Instructions Please refer to the electronic Patient Visit Report (Discharge Instructions) for additional information. Additional Copies To Kris Reese M.D.; Jeffery House M.D. Reviewed: Pt Seen/Exam by Me History Pt and both feel that LE swelling is markedly improved. has photos on her phone and this is apparent. Pt has not been able to continue with elevated feet due to ongoing LBP/sciatica issues. He has had to remain on his feet due to the positioning in the bed and is in terrible pain. He feels his improvement is enough that he would prefer to finish steroids as an outpt. Pt states he was on diltiazem for years and there was plan to change him to amlodipine due to insurance coverage issues. He has never been on lisinopril. Tolerating PO without issue. Denies chest pain, SOB. Agree with HPI/ROS as noted by PA. General Appearance: WD/WN, no apparent distress Eye Exam: bilateral eye normal inspection, bilateral eye other (normal sclera) Respiratory: normal breath sounds, no respiratory distress Cardiovascular: normal peripheral pulses, regular rate, rhythm Gastrointestinal: non tender, soft Extremities: non-tender, other (mild nonpitting L foot swelling and knee swelling, other LE swelling is not evident and noted with marked improvement when compared to photos) Neurologic/Psychiatric: alert, normal mood/affect, oriented x 3 Skin Characteristics: warm/dry, other (LE skin color is c/w chronic skin changes) Assessment/Plan Agree with plan as outlined above Likely vasculitis, possibly brought on by medications continue decadron as outpt Pt has not had further abx other than initial ED dosing, will not recommend further abx at this time Changing diltiazem/amlodipine to lisinopril. Pt advised to check BPs and that dose may need adjusted Given pain medications to last him the next few days until he can have his injection with Dr. House rescheduled. Advised to have an appt with PCP next week as well in case he cannot have injection so that he can have further pain medications if needed d/c gabapentin as this was not effective for pt and may have contributed to swelling
[2017-06-11] MEDS ORDERED: LIDODERM (LIDOCAINE) PATCH 5% TD SCH (08:00)
[2017-06-16] MEDS ORDERED: OXYC-57 PO (12:26)
[2017-06-16] MEDS ORDERED: CYCL5TAB PO (12:26)
[2017-06-16] MEDS ORDERED: DXM/4 PO (12:26)
[2017-06-16] MEDS ORDERED: LISI-461 PO (12:26)
[2017-06-16] MEDS ORDERED: LDDP5 TD (12:26)
== END 2017-06-10 15:14 | disposition home or self-care (01) | DRG 547 ==
LOC: C.EDB 15:02 → C.4E 19:42 → ENRESERV 20:02
PROVIDERS: ADMIT Internal Medicine; ATTEND Family Medicine
DX: I77.6 Arteritis, unspecified (principal); I87.8 Other specified disorders of veins; T46.1X5A Adverse effect of calcium-channel blockers, initial encounter; T39.315A Adverse effect of propionic acid derivatives, initial encounter; T43.8X5A Adverse effect of other psychotropic drugs, initial encounter; T38.0X5A Adverse effect of glucocorticoids and synthetic analogues, initial encounter; M51.16 Intervertebral disc disorders with radiculopathy, lumbar region; R74.8 Abnormal levels of other serum enzymes; J44.9 Chronic obstructive pulmonary disease, unspecified; I10 Essential (primary) hypertension; E78.5 Hyperlipidemia, unspecified; F17.200 Nicotine dependence, unspecified, uncomplicated; Z66 Do not resuscitate; Z86.73 Personal history of transient ischemic attack (TIA), and cerebral infarction without residual deficits; Z79.1 Long term (current) use of non-steroidal anti-inflammatories (NSAID); Z79.82 Long term (current) use of aspirin; Z79.899 Other long term (current) drug therapy; Z90.49 Acquired absence of other specified parts of digestive tract; Z98.890 Other specified postprocedural states

== ENCOUNTER → 2017-06-09 | Day surgery (SDC) | payer OTHER ==
[2017-06-02 13:01] VITALS: Ht 175.3 cm; Wt 77.7 kg
[~2017-06-09] VITALS: Ht 175.3 cm; Wt 77.7 kg
[~2017-06-09] MED LIST changes: +ASPCH81X PO; -ASPEC81 PO; +ASPI81TA28 PO; +ATV5X PO; +CYCL5TAB PO; +DILT1CAP15 PO; +DXM/4 PO; +GABA-113 PO; +GABA1CAP4 PO; -HYDR-5688 PO; +LDDP5 TD; +LIDOCAINE HCL 1% MPF 5 ML VIAL ONE; +LISI-461 PO; +NAPR500T3 PO; +NRV/5 PO; +OXYC-57 PO; +OXYC1TAB3 PO; -PRED50TA PO; +SODIUM CHLORIDE 0.9% INJ 10 ML VIAL ONE; -TRAM-10 PO; -TYLOTC500 PO; +ZCR40 PO
[2017-06-09 14:16] VITALS: BP 147/78; PULSE 98; TEMP 37.5; O2SAT 94
--- NOTE | 2017-06-09 16:13 | OPERATIVE REPORT ---
DATE OF OPERATION: 06/09/2017 NOTE: The patient was scheduled for a caudal epidural injection for radicular pain at L5; however, when I went in to evaluate the patient before the procedure, he had 3+ pitting edema in both legs with an enacted cellulitic infection down the right leg. There were some concerns about the potential for blood clot. Decision was made to forego the injection given the active cellulitis and sent to the [facility] Emergency Room for further evaluation including a Doppler study to rule out blood clot given this significant new onset of swelling over the course of a few weeks. The ER was alerted to his coming and provided with report of the patient's condition. I attest to the content of the Intraoperative Record and any orders documented therein. Any exception s are noted below.
== END | disposition home or self-care (01) ==
LOC: X.SURG 14:05
PROVIDERS: ATTEND Physical Medicine & Rehabilitation
DX: M96.1 Postlaminectomy syndrome, not elsewhere classified (principal); L03.115 Cellulitis of right lower limb; L03.116 Cellulitis of left lower limb; Z53.09 Procedure and treatment not carried out because of other contraindication; M54.16 Radiculopathy, lumbar region; Z79.82 Long term (current) use of aspirin

== ENCOUNTER → 2017-06-22 | Day surgery (SDC) | payer OTHER ==
[2017-06-16 12:29] VITALS: Ht 175.3 cm; Wt 77.7 kg
[~2017-06-22] VITALS: Ht 175.3 cm; Wt 77.7 kg
[~2017-06-22] MED LIST changes: -ASPCH81X PO; +ASPI81TA28 PO; +ATV5X PO; +CYCL5TAB PO; -DILT-119 PO; +DXM/4 PO; -GABA-113 PO; +LDDP5 TD; +LIDOCAINE HCL 1% MPF 5 ML VIAL INJ ONE; +LISI-461 PO; -LORA-741 PO; -NAPR-1169 PO; +NAPR500T3 PO; +OXYC-57 PO; -OXYC1TAB3 PO; -SIMV40TA2 PO; +SODIUM CHLORIDE 0.9% INJ 10 ML VIAL INJ ONE; +ZCR40 PO
--- NOTE | 2017-06-22 14:51 | History & Physical Bridge - SC ---
H&P Re-Evaluation Bridge Note: I have examined the patient, reviewed the History & Physical and in the interval since the performance of the History & Physical I have noted the following changes of clinical significance: No changes noted
--- NOTE | 2017-06-22 15:10 | [facility] Post Operative Brief Note ---
Immediate Operative Summary Operative Date Jun 22, 2017. Pre-Operative Diagnosis post laminectomy syndrome with recurrent L1-5 herniation with lower leg extremity radiculopathy Post-Operative Diagnosis post laminectomy syndrome with recurrent L1-5 herniation with lower leg extremity radiculopathy Procedure(s) Performed caudal epidural steroid injection Surgeon Dr. Rajeev House Tallow Pumper Surgeon(s) None Estimated Blood Loss none Findings Consistent with Post-Op Diagnosis Specimens NA Drains None Anesthesia Type Local Complication(s) none Disposition Disposition:
[2017-06-22 15:11] VITALS: TEMP 37.1
--- NOTE | 2017-06-22 15:11 | Discharge Instructions ---
Discharge Instructions Date of Service Jun 22, 2017. Visit Reason for Visit: Post Laminectomy Syndrome Discharge Discharge Diagnosis / Problem: left leg pain Discharge Goals Goal(s): Decrease discomfort, Improve function Activity Recommendations Activity Limitations: resume your previous activity Anesthesia . Post Anesthesia Instructions: If you have had General Anesthesia or IV Sedation: * Do not drive today. * Resume driving when surgeon permits. * Do not make important decisions or sign legal documents today. * Call surgeon for: 1. Temperature elevations greater than 101 degrees F. 2. Uncontrollable pain. 3. Excessive bleeding. 4. Persistent nausea and vomiting. 5. Medication intolerance (nausea, vomiting or rash). * For nausea and vomiting use only clear liquids such as: tea, soda, bouillon until nausea subsides, then gradually increase diet as tolerated. * If you have any concerns or questions, call your surgeon's office. If physician is unavailable and it is an emergency, call 911 or go to the nearest emergency room. . Diet Recommendations Recommended Home Diet: resume previous diet Procedures Procedures Performed: caudal epidural steroid injection Pending Studies Studies pending at discharge: no Medical Emergencies . Who to Call and When: Medical Emergencies: If at any time you feel your situation is an emergency, please call 911 immediately. . Non-Emergent Contact Non-Emergency issues call your: Specialist . . "Provider Documentation" section prepared by Jeffery House. .
[2017-06-22 15:34] VITALS: BP 123/76; PULSE 82; O2SAT 98
--- NOTE | 2017-06-22 16:18 | OPERATIVE REPORT ---
DATE OF OPERATION: 06/22/2017 PREOPERATIVE DIAGNOSES: Post-laminectomy syndrome with recurrent L4-L5 herniation with left L5-S1 radiculopathy. POSTOPERATIVE DIAGNOSES: Same. PROCEDURE: Caudal epidural steroid injection under fluoroscopic guidance. INDICATIONS: The patient is a 62-year-old white male who returns today for an epidural injection. This was postponed due to active cellulitis infection of his lower extremities, which has resolved. He reports that he is bothered by intense pain going down the left leg related to the disc herniation, MRI reveals it is coming in close contact with the L5-S1 nerve roots. PHYSICAL EXAMINATION: Pleasant male who is uncomfortable. He has some sensory response on the back to touch as well as a sciatic notch down the left leg, any type of motion reproduces the pain. He is without any focal weakness. CONSENT: Verbal and written consent was obtained from patient. Risks and benefits were reviewed. Risks include but are not limited to epidural abscess and allergic reaction. The patient wishes to proceed. DESCRIPTION OF PROCEDURE: The patient was taken back to the special procedures room of the [facility]. He was maintained in prone position. Backside was cleansed with Betadine x3 and a dry sterile dressing was applied. Fluoroscope was used to identify the sacral hiatus and the overlying skin was anesthetized with 5 mL of lidocaine 1% with a 25 gauge 1.5-inch needle. A 25 gauge 3.5-inch spinal needle was then directed under lateral fluoroscopic guidance into the sacral hiatus and into the canal advancing it. He then underwent injection after negative aspiration of 40 mg of Depo-Medrol and 4 mL of preservative free sodium chloride. Injection was well tolerated. DISPOSITION: 1. The patient is taken out into the discharge recovery area where he will be discharged home once discharge criteria have been met. 2. Follow up in the [facility] office in 2-4 weeks. I attest to the content of the Intraoperative Record and any orders documented therein. Any exception s are noted below.
== END | disposition home or self-care (01) ==
LOC: X.SURG 14:02
PROVIDERS: ATTEND Physical Medicine & Rehabilitation
DX: M96.1 Postlaminectomy syndrome, not elsewhere classified (principal); M51.26 Other intervertebral disc displacement, lumbar region; M54.16 Radiculopathy, lumbar region; Z79.82 Long term (current) use of aspirin

== ENCOUNTER 2018-07-24 10:52 | Inpatient (IN) ==
--- NOTE | 2018-07-10 13:51 | Anesthesiology Consultation ---
Date of Service July 10, 2018 Assessment & Plan (1) Encounter for pre-operative examination: Chart Review Chart Review: Acceptable Risk for Surgery and Patient seen in Pre Admission Testing Teaching & Discussion Instructed NPO after midnight before surgery, except medications with 15 cc of water. Medication instructions provided according to the PAT guidelines. History Surgery Operation Date: 07/24/18 12:25 Proposed Procedures p L4-S1 Revision Decompression with Fusion - Jeffery Hatch, Height/Weight Height: 5 ft 9 in Weight: 70.6 kg Allergies Allergy/AdvReac Type Severity Reaction Status Date / Time gabapentin AdvReac Unknown LEG Verified 07/03/18 13:34 SWELLING Medications Home Medications Medication Instructions Recorded Confirmed Last Taken aspirin [Aspir-81] 81 mg PO DAILY 01/03/18 07/03/18 01/12/18 atorvastatin 40 mg PO QPM 01/03/18 07/03/18 01/12/18 cholecalciferol (vitamin D3) 1,000 unit PO QPM 01/03/18 07/03/18 01/12/18 [Vitamin D3] fluticasone-vilanterol [Breo 1 inh INHALATION DAILY PRN 01/03/18 07/03/18 01/12/18 Ellipta] loratadine [Claritin] 1 tab PO QPM 01/03/18 07/03/18 01/12/18 lorazepam 0.5 mg PO BID PRN 01/03/18 07/03/18 01/13/18 03:00 naproxen 500 mg PO BID PRN 01/03/18 07/03/18 12/30/17 acetaminophen [Tylenol Extra 1 dose PO UD PRN 07/03/18 07/03/18 Unknown Strength] fentanyl 1 patch TRANSDERMAL Q72H 07/03/18 07/03/18 Unknown lisinopril 10 mg PO QPM 07/03/18 07/03/18 Unknown Past Medical History Medical History Anemia Anxiety Cellulitis 3 WEEKS AGO FINISHED ANTIBIOTICS AND STEROID/LEFT LEG/RESOLVED Chronic back pain Chronic obstructive pulmonary disease INHALER 1-2 X/WEEK History of TIA (transient ischemic attack) 2015. Treated at [facility], brain imaging and carotid US all WNL. Now on ASA 81mg. Hyperlipidemia Hypertension Osteoarthritis Past Surgical History Surgical History Fusion of spine LUMBAR FUSION History of arthroscopy LEFT KNEE History of cholecystectomy History of colonoscopy History of tonsillectomy Past Anesthesia History No Hx of Anesthesia Complications and No Family Hx of Anesthesia Complications History of PONV No Motion Sickness Screening History of Motion Sickness: No Social History Smoking Status: Current every day smoker tobacco type: cigarettes Smoking cigarettes per day: 10 CIGS/DAY x 40yrs Do You Dip or Chew Tobacco: No Hx Alcohol Use: No Hx Substance Use: No substance use type: does not use Exercise / Class Metabolic Activity III < 4 Walking/Shop/Light housework (Uses cane with ambulation, rare SOB with ambulation 2/2 "exhaustion from the pain," no chest pain) Review of Systems Pt denies any recent chest pain, shortness of breath, palpitations, cough, fever or URI. +cellulitis ~3wks ago LLE, treated with ABX Physical Exam Vital Signs BP: 124/73 P: 69bpm SPO2: 97% RA T: 98.0 R: 16 ENMT Mouth: + dentition abnormality (missing front bottom and some molars) and + small oral opening; no dental restorations, no chipped teeth and no loose teeth Thyromental Distance: > or= 3.5 Finger Breadths (3.5) Mallampati Class: II Mouth / Teeth: 1. missing Neck normal visual inspection; neck extension not limited Respiratory normal respiratory effort Auscultation: lungs clear to auscultation bilaterally and + diminished lung sounds (B/L); no crackles, no rhonchi and no wheezes Cardiovascular Rate/Rhythm: regular rate and regular rhythm Heart Sounds: no murmur Vessels: no carotid bruit Extremities: no edema Testing Electrocardiogram Date: 07/10/18 Findings: + NSR @ (66) Chest X-Ray Date: 07/10/18 No significant change compared to the prior study. No acute process. Emphysema is again noted. Echocardiogram Date: 12/05/15 EF: 65% 1. Normal left ventricular size, mild LVH. LVEF 65%. Normal segmental wall motion. 2. Diastolic dysfunction. 3. Injection of contrast documented an interatrial shunt. Left to right at rest and right to left with valsalva. Suspect patent foramen ovale. Laboratory Results 07/10/18 14:02 07/10/18 14:02 Blood Type A Positive 07/10/18 14:02 Antibody Screen NEGATIVE 07/10/18 14:02 PT 12.0 Seconds (9.0-12.0) 07/10/18 14:02 INR 1.2 (0.9-1.1) H 07/10/18 14:02 APTT 29.3 Seconds (21.0-31.0) 07/10/18 14:02 Urine Color Yellow 07/10/18 Unknown Urine Appearance Clear (Clear) 07/10/18 Unknown Urine pH 6.5 (4.5-7.5) 07/10/18 Unknown Ur Specific [place] 1.011 (1.000-1.030) 07/10/18 Unknown Urine Protein Negative (Negative) 07/10/18 Unknown Urine Glucose (UA) Negative (Negative) 07/10/18 Unknown Urine Ketones Negative (Negative) 07/10/18 Unknown Urine Nitrite Negative (Negative) 07/10/18 Unknown Ur Leukocyte Esterase Negative (Negative) 07/10/18 Unknown
--- NOTE | 2018-07-10 13:55 | PAT Medication Instructions ---
Medication Instructions Date of Service July 10, 2018 Home Medications aspirin [Aspir-81] 81 mg PO DAILY atorvastatin 40 mg PO QPM cholecalciferol (vitamin D3) 1,000 unit PO QPM fluticasone-vilanterol [Breo Ellipta] 1 inh INHALATION DAILY PRN loratadine [Claritin] 1 tab PO QPM lorazepam 0.5 mg PO BID PRN naproxen 500 mg PO BID PRN acetaminophen [Tylenol Extra Strength] 1 dose PO UD PRN fentanyl 1 patch TRANSDERMAL Q72H lisinopril 10 mg PO QPM Continue as directed fentanyl 1 patch TRANSDERMAL Q72H *unless otherwise instructed by your surgeon, can be continued--just avoid placement near surgical site. ASK your surgeon for instructions naproxen 500 mg PO BID PRN Take morning of surgery With a small sip of water, OTHERWISE NOTHING TO EAT OR DRINK AFTER MIDNIGHT: fluticasone-vilanterol [Breo Ellipta] 1 inh INHALATION DAILY PRN (if needed) acetaminophen [Tylenol Extra Strength] 1 dose PO UD PRN (if needed, may be taken up to four hours before surgery) lorazepam 0.5 mg PO BID PRN (if needed) Take evening before surgery aspirin [Aspir-81] 81 mg PO DAILY atorvastatin 40 mg PO QPM cholecalciferol (vitamin D3) 1,000 unit PO QPM loratadine [Claritin] 1 tab PO QPM lorazepam 0.5 mg PO BID PRN (if needed) acetaminophen [Tylenol Extra Strength] 1 dose PO UD PRN (if needed) lisinopril 10 mg PO QPM Other Notes If you have any questions please call us at [phone] or [phone] or [phone] or [phone]
[2018-07-10 14:23] LABS: Basophils # (auto) 0.01 K/uL (0-0.2); Basophils % (auto) 0.2 %; Eosinophils # (auto) 0.08 K/uL (0-0.5); Eosinophils % (auto) 1.8 %; Hematocrit (blood only) 38.3 % (42-52); Hemoglobin 13.2 g/dL (14.0-18.0); Immature Granulocytes # (auto) 0.01 K/uL (0.00-0.02); Immature Granulocytes % (auto) 0.2 %; Lymphocytes # (auto) 2.02 K/uL (1.2-3.4); Lymphocytes % (auto) 45.5 %; Mean Corpuscular Hgb Conc 34.5 g/dL (32-36); Mean Corpuscular Volume 91.6 fL (80-100); Mean Platelet Volume 8.6 fL (7.4-10.4); Monocytes # (auto) 0.25 K/uL (0.11-0.59); Monocytes % (auto) 5.6 %; Neutrophils # (auto) 2.07 K/uL (1.4-6.5); Neutrophils % (auto) 46.7 %; Platelet Count 278 K/uL (130-400); RDW Coefficient of Variation 13.8 % (11.5-14.5); RDW Standard Deviation 45.8 fL (36.4-46.3); Red Blood Count 4.18 M/uL (4.7-6.1); White Blood Count 4.44 K/uL (4.8-10.8)
--- NOTE | 2018-07-10 14:35 | XRay Report ---
XR chest Pre-admission PA/Lat HISTORY: Preop. COMPARISON: Chest 12/05/2015. FINDINGS: The lungs are hyperexpanded with apical predominant emphysematous changes. Calcified right subcarinal and hilar lymph nodes are again noted. Stable calcified granuloma within the right lower l obe. Stable linear scarlike densities within the right lung apex. The heart is normal in size. No ple ural effusions. No pneumothorax. IMPRESSION: No significant change compared to the prior study. No acute process. Emphysema is again noted. Electronically signed by: Jayce Hoffman M.D. 07/10/2018 2:34 PM
[2018-07-10 14:40] LABS: Appearance Urine Clear (Clear); Bilirubin Urine Negative (Negative); Blood Urine Negative (Negative); Color Urine Yellow; Glucose Urine UA Negative (Negative); Ketones Urine Negative (Negative); Leukocyte Esterase Urine Negative (Negative); Nitrite Urine Negative (Negative); Protein Urine Negative (Negative); Specific Gravity Urine 1.011 (1.000-1.030); Urobilinogen Urine Negative (Negative); pH Urine 6.5 (4.5-7.5)
[2018-07-10 14:41] LABS: INR 1.2 (0.9-1.1); Partial Thromboplastin Ratio 1.1; Partial Thromboplastin Time 29.3 Seconds (21.0-31.0)
[2018-07-10 16:13] LABS: BUN Creatinine Ratio 12.7 (10-20); Calcium 8.7 mg/dl (8.5-10.1); Creatinine Clr Calc Pharmacy 103.5 ml/min; Est GFR (African American) 114.3; Est GFR (Non-African American) 98.6; Potassium 3.9 mmol/L (3.5-5.1)
[~2018-07-24 10:52] MED LIST changes: +ACETAMINOPHEN 500 MG TAB PO SCH; -ASPI81TA28 PO; -ATV5X PO; +CEFAZOLIN 1000MG 1,000 MG/7.5 ML SYR IV SCH; -CHOL1000 PO; -CYCL5TAB PO; +CeleBREX 200 MG CAP PO SCH; -DXM/4 PO; -FLUT1INH INH; -LDDP5 TD; -LIDOCAINE HCL 1% MPF 5 ML VIAL INJ ONE; -LISI-461 PO; +LR 15ML/HR IV SCH; -NAPR500T3 PO; -OXYC-57 PO; -SODIUM CHLORIDE 0.9% INJ 10 ML VIAL INJ ONE; -ZCR40 PO
[2018-07-24] MEDS ORDERED: ATROPINE SULFATE 0.1 MG/ML 10ML SYR IV PRN (11:42)
[2018-07-24] MEDS ORDERED: ePHEDrine sulfate 50 MG/ML AMP IV PRN (11:42)
[2018-07-24] MEDS ORDERED: ONDANSETRON INJ 2 MG/ML 2 ML VIAL IV PRN ×2 (11:42→16:01)
[2018-07-24] MEDS ORDERED: HYDROmorphone INJ 2 MG/ML SYR/VIAL IV PRN (11:42)
[2018-07-24] MEDS ORDERED: PROMETHAZINE HCL 6.25 MG in SODIUM CHLORIDE 0.9% 50 ML IV PRN (11:42)
--- NOTE | 2018-07-24 12:03 | History & Physical Bridge Note ---
Date of Service July 24, 2018 History & Physical Bridge Note I have examined the patient, reviewed the History & Physical and in the interval since the performance of the History & Physical I have noted the following changes of clinical significance: no changes noted
--- NOTE | 2018-07-24 12:04 | History & Physical Report ---
Date of Service July 24, 2018 Assessment & Plan (1) Spinal stenosis, lumbar region with neurogenic claudication: Revision decompression with fusion L4-S1 Present on Admission?: Yes History of Present Illness Chief Complaint: Back and leg pain Primary Care Provider: Kris Reese MD This is a 63-year-old male who presents with chronic persistent back and leg pain. After failing an extensive course of nonoperative care is here for surgical intervention. Allergies Allergy/AdvReac Type Severity Reaction Status Date / Time gabapentin AdvReac Unknown LEG Verified 07/24/18 11:12 SWELLING Home Medications Home Medications Medication Instructions Recorded Confirmed Type Breo Ellipta 1 inh INHALATION DAILY PRN 01/03/18 07/24/18 History aspirin [Aspir-81] 81 mg PO DAILY 01/03/18 07/24/18 History atorvastatin 40 mg PO QPM 01/03/18 07/24/18 History cholecalciferol (vitamin D3) 1,000 unit PO QPM 01/03/18 07/24/18 History [Vitamin D3] loratadine [Claritin] 1 tab PO QPM 01/03/18 07/03/18 History lorazepam 0.5 mg PO BID PRN 01/03/18 07/24/18 History naproxen 500 mg PO BID PRN 01/03/18 07/03/18 History acetaminophen [Tylenol Extra 1 dose PO UD PRN 07/03/18 07/24/18 History Strength] fentanyl 1 patch TRANSDERMAL Q72H 07/03/18 07/24/18 History lisinopril 10 mg PO QPM 07/03/18 07/24/18 History Past Med/Surg History Social History Preferred Language: Arabic Communication Ability: Effective Communication Ability Comment: HELPS WITH READING/WRITING Can Technician Required: No Beliefs That Will Affect Care: None Current Living Situation: Spouse and Family Current Living Situation Comment: LIVES WITH AND SON Other Information That Helps Us Care for You: No Feels Safe at Home: Yes Smoking Status: Current every day smoker Hx Alcohol Use: No Hx Substance Use: No Physical Exam Vital Signs (Past 24 Hours): Last Vital Signs Temp 36.5 C 07/24/18 11:22 Pulse 70 07/24/18 11:22 Resp 18 07/24/18 11:22 BP 166/93 H 07/24/18 11:22 Pulse Ox 97 07/24/18 11:22 Results & Data Medications Administered Acetaminophen (Tylenol) 1,000 mg PO PREOP YAKOV Stop: 07/24/18 18:00 Last Admin: 07/24/18 11:43 Dose: 1,000 mg Documented by: [id number] Celecoxib (Celebrex) 200 mg PO PREOP YAKOV Stop: 07/24/18 18:00 Last Admin: 07/24/18 11:43 Dose: 200 mg Documented by: [id number] Lactated Ringer's (Lr) 1,000 mls @ 15 mls/hr IV .Q24H YAKOV Stop: 07/25/18 05:59 Last Admin: 07/24/18 11:25 Dose: 15 mls/hr Documented by: [id number]
[2018-07-24] MEDS ORDERED: DEXAMETHASONE SOD INJ 4 MG/ML VIAL ONE (12:18)
[2018-07-24] MEDS ORDERED: ONDANSETRON INJ 2 MG/ML 2 ML VIAL ONE (12:18)
[2018-07-24] MEDS ORDERED: LIDOCAINE HCL 2% 2 ML VIAL/AMP(20MG/ML) INFIL ONE (12:18)
[2018-07-24] MEDS ORDERED: ROCURONIUM BROMIDE 10 MG/ML 5 ML VIAL ONE (12:18)
[2018-07-24] MEDS ORDERED: fentaNYL citrate 100 MCG/2 ML VIAL ONE ×3 (12:18→13:35)
[2018-07-24] MEDS ORDERED: PROPOFOL IV EMULSION 10 MG/ML 20 ML VIAL IV ONE (12:18)
[2018-07-24] MEDS ORDERED: BUPIVACAINE/EPINEPHRINE 0.5% MPF 1:200,000 30 ML VIAL ONE (12:25)
[2018-07-24] MEDS ORDERED: BACITRACIN INJ 50,000 UNIT VIAL ONE (12:25)
[2018-07-24] MEDS ORDERED: HYDROmorphone INJ 2 MG/ML SYR/VIAL ONE (13:07)
[2018-07-24] MEDS ORDERED: FLOSEAL HEMOSTATIC MATRIX 10ML TOP ONE (13:15)
[2018-07-24] MEDS ORDERED: NEOSTIGMINE METHYLSULFATE 5 MG/5 ML SYR ONE (14:16)
[2018-07-24] MEDS ORDERED: GLYCOPYRROLATE 0.2 MG/ML VIAL ONE (14:16)
--- NOTE | 2018-07-24 14:22 | Operative Report ---
Post Operative Report Pre & Post Diagnosis Operation Date: 07/24/18 12:25 Pre-Op Diagnosis: Spinal stenosis with neurogenic claudication L4-S1 Post-Op Diagnosis: Spinal stenosis with neurogenic claudication L4-S1 Procedure Operation Date: 07/24/18 12:25 Actual Procedures #1 revision decompression medial facetectomies foraminotomies L4-5 L5-S1. #2 posterior spinal fusion L4-5 L5-S1. #3 placement of posterior segmental instrumentation L4-5 L5-S1. #4 interbody fusion L4-5. #5 placement of titanium 12 x 26 mm cage L4-5 per #6 placement of local autograft in the posterior lateral gutters. #7 placement infuse collagen sponge bone mass graft and posterior gutters and ostial amp and interbody space. Surgeon Jeffery Hatch DO Cop Examiner Rosanna Velez Estimated Blood Loss 250 Findings Consistent with Post-Op Diagnosis Specimens None Description of Procedure Patient was met with preoperatively case discussed all questions addressed. After informed consent obtained patient was taken to the operative suite underwent intubation and placed in a prone position the Mehdi table on top of the Ronny frame. All bony prominences were padded eyes inspected to ensure no external pressure placed upon but this point the lumbar spine was prepped and draped in normal sterile fashion. Sharp dissection with the assistance of Bovie cautery performed down to and exposing the remaining lamina and transverse processes of L. Then performed a revision complete laminectomy of L4 and L3 with bilateral medial facetectomies and foraminotomies on the left exposing significantly compressed L5 and L4 nerve roots. After decompression pedicle screws were placed in L4-L5 and S1 levels bilaterally with assistance of fluoroscopy the purposes arie placed. Through a transforaminal approach and left the discectomy of L4-5 was performed and endplates curetted to subcortical bleeding bone and a 12 x 26 mm titanium cage filled with ostium bone graft harinder ed in position. Also was able to address the recurrent disc herniation at the 4 5 level creating significant compression of the traversing root. The rods were then locked in final position bilaterally. The transverse process of L4-L5 and S1 levels burred to subcortical bleeding bone infuse collagen sponge mass graft local autograft placed in the posterior gutters. 15 round GURPREET drain inserted. Incision was then closed with 1 Vicryl in the fascia 2-0 Vicryl subcutaneous and 4-0 Monocryl for final skin closure. Steri-Strip sterile dressings placed. Patient was related by history of disc. Please note Rosanna Velez present throughout the entire procedure involved in patient positioning complex portions of the surgery and final skin closure. I attest to the content of the Intraoperative Record and any orders documented therein. Any exceptions are noted below.
--- NOTE | 2018-07-24 14:28 | Fluoroscopy Report ---
LUMBAR SPINE, INTRAOPERATIVE FLUOROSCOPY HISTORY: L4-5 revision and fusion. FLUOROSCOPY TIME: 30 seconds. FINDINGS: Intraoperative fluoroscopy was provided for the lumbar spine. 2 fluoroscopic spot images we re obtained. Posterior decompression and fusion from L4 through S1 with pedicle screws and rods. The hardware appears intact. IMPRESSION: Fluoroscopy provided for a L4-S1 posterior decompression and fusion. Electronically signed by: Jayce Hoffman M.D. 07/24/2018 2:26 PM
[2018-07-24] MEDS: fentaNYL citrate 100 MCG/2 ML VIAL IV PRN ×2 (15:20→15:25)
--- NOTE | 2018-07-24 15:44 | Anesthesiology Progress Note ---
Date of Service July 24, 2018 Anesthesia Post Procedure Vital Signs Vital Signs: Temp Pulse Pulse Resp BP Pulse Ox 07/24/18 15:40 36.4 C L 75 20 135/79 97 07/24/18 15:30 78 13 133/78 99 07/24/18 15:20 76 12 142/86 H 100 07/24/18 15:10 72 22 131/89 100 07/24/18 15:00 85 20 160/100 H 100 07/24/18 14:50 102 H 17 184/109 H 100 07/24/18 14:40 36.2 C L 95 H 14 153/92 H 100 07/24/18 11:22 36.5 C 70 18 166/93 H 97 Pain Intensity Medial Back: Pain Intensity: 4 Notes Mental Status: alert / awake / arousable Patient Amnestic to Procedure: Yes Nausea / Vomiting: adequately controlled Pain: adequately controlled Airway Patency, RR, SpO2: stable & adequate BP & HR: stable & adequate Hydration State: stable & adequate Anesthetic Complications: no major complications apparent
[2018-07-24] MEDS ORDERED: ALBUT/IPRATROP 3MG/0.5MG NEB 3 ML VIAL NEB STA (15:57)
[2018-07-24] MEDS ORDERED: SOD PHOSPHATE/SOD BIPHOSPHATE ENEMA 132 ML BTL PR PRN (16:01)
[2018-07-24] MEDS ORDERED: OXYCODONE HCL IR 5 MG TAB (IMMEDIATE RELEASE) PO PRN (16:01)
[2018-07-24] MEDS ORDERED: HYDROmorphone INJ 0.5 MG/0.5 ML SYR IV PRN (16:01)
[2018-07-24] MEDS ORDERED: ACETAMINOPHEN 1,000 MG/100 ML VIAL IV PRN (16:01)
[2018-07-24] MEDS ORDERED: PROMETHAZINE HCL 12.5 MG in SODIUM CHLORIDE 0.9% 50 ML IV PRN (16:01)
[2018-07-24] MEDS ORDERED: LORazepam 0.5 MG/1 ML VIAL IV PRN (16:01)
[2018-07-24] MEDS ORDERED: FAMOTIDINE 20 MG TAB PO PRN (16:01)
[2018-07-24] MEDS ORDERED: LORazepam 0.5 MG TAB PO PRN (16:01)
[2018-07-24] MEDS ORDERED: ALUMINUM/MAGNESIUM SUSP 30 ML UDC PO PRN (16:01)
[2018-07-24] MEDS ORDERED: DO NOT ADMINISTER FLU VACCINE PRN (16:01)
[2018-07-24] MEDS ORDERED: DO NOT ADMINISTER PNEUMOCOCCAL VACCINE PRN (16:01)
[2018-07-24] MEDS ORDERED: METOCLOPRAMIDE HCL INJ 5 MG/ML 2 ML VIAL IV PRN (16:01)
[2018-07-24] MEDS ORDERED: MAGNESIUM HYDROXIDE SUSP 30 ML UDC PO PRN (16:01)
[2018-07-24] MEDS ORDERED: BISACODYL 10 MG SUPP PR PRN (16:01)
[2018-07-24] MEDS ORDERED: ACETAMINOPHEN 500 MG TAB PO PRN ×2 (16:01)
[2018-07-24] MEDS ORDERED: ONDANSETRON 4 MG TAB PO PRN (16:01)
[2018-07-24] MEDS ORDERED: fentaNYL 50 MCG/HR TDSY TD SCH (17:15)
[2018-07-24] MEDS ORDERED: HYDROmorphone INJ 1 MG/ML SYRINGE IV PRN (17:17)
[2018-07-24] MEDS: KETOROLAC TROMETHAMINE 15 MG/ML VIAL IV SCH (18:00)
[2018-07-24] MEDS: LORazepam 0.5 MG TAB PO PRN (19:31)
[2018-07-24] MEDS: LACTATED RINGER'S 1,000 ML IV SCH (19:32)
[2018-07-24] MEDS: CEFAZOLIN 1000MG 1,000 MG/7.5 ML SYR IV SCH (19:33)
[2018-07-24] MEDS: DOCUSATE SODIUM/SENNA 50/8.6MG TAB PO SCH (20:27)
[2018-07-24] MEDS: LISINOPRIL 10 MG TAB PO SCH (20:27)
[2018-07-24] MEDS: ATORVASTATIN 40 MG TAB PO SCH (20:28)
[2018-07-24] MEDS: LORATADINE 10 MG TAB PO SCH (20:28)
[2018-07-24] MEDS: CHOLECALCIFEROL 1,000 UNITS TAB PO SCH (20:28)
[2018-07-24] MEDS: CHECK FENTANYL PATCH PLACEMENT SCH (23:59)
[2018-07-25] MEDS: LACTATED RINGER'S 1,000 ML IV SCH (02:04)
[2018-07-25] MEDS: CEFAZOLIN 1000MG 1,000 MG/7.5 ML SYR IV SCH (04:11)
[2018-07-25 06:06] LABS: Hematocrit (blood only) 30.1 % (42-52); Hemoglobin 10.7 g/dL (14.0-18.0); Immature Granulocytes # (auto) 0.02 K/uL (0.00-0.02); Immature Granulocytes % (auto) 0.2 %; Lymphocytes # (auto) 1.04 K/uL (1.2-3.4); Lymphocytes % (auto) 11.3 %; Mean Corpuscular Hgb Conc 35.5 g/dL (32-36); Mean Corpuscular Volume 90.1 fL (80-100); Monocytes % (auto) 4.3 %; Neutrophils # (auto) 7.76 K/uL (1.4-6.5); Neutrophils % (auto) 84.2 %; Platelet Count 202 K/uL (130-400); RDW Coefficient of Variation 13.5 % (11.5-14.5); RDW Standard Deviation 44.6 fL (36.4-46.3); Red Blood Count 3.34 M/uL (4.7-6.1); White Blood Count 9.22 K/uL (4.8-10.8)
[2018-07-25] MEDS: POLYETHYLENE (MIRALAX) 17 GM PACK PO SCH ×4 (06:10→23:44)
[2018-07-25] MEDS: KETOROLAC TROMETHAMINE 15 MG/ML VIAL IV SCH ×3 (06:10→12:05)
[2018-07-25 06:36] LABS: Albumin Level 3.1 gm/dl (3.4-5.0); Bilirubin Direct 0.2 mg/dl (0-0.2); Bilirubin,Total 0.4 mg/dl (0.2-1); Total Protein 5.4 gm/dl (6.4-8.2)
--- NOTE | 2018-07-25 08:01 | Anesthesiology Progress Note ---
Date of Service July 25, 2018 Anesthesia Post Procedure Vital Signs Vital Signs: Temp Pulse Pulse Pulse Pulse Resp BP 07/25/18 07:13 36.4 C L 61 16 153/85 H 07/25/18 03:24 36.7 C 57 L 16 134/78 07/24/18 22:53 36.5 C 60 17 152/84 H 07/24/18 19:06 36.3 C L 71 18 122/77 07/24/18 18:01 36.9 C 70 18 134/79 07/24/18 17:00 36.4 C L 72 16 121/73 07/24/18 16:35 36.4 C L 67 16 123/72 07/24/18 16:00 36.7 C 71 16 121/72 07/24/18 15:50 60 13 120/72 07/24/18 15:40 36.4 C L 75 20 135/79 07/24/18 15:30 78 13 133/78 07/24/18 15:20 76 12 142/86 H 07/24/18 15:10 72 22 131/89 07/24/18 15:00 81 18 160/100 H 07/24/18 14:50 102 H 17 184/109 H 07/24/18 14:40 36.2 C L 95 H 14 153/92 H 07/24/18 11:22 36.5 C 70 18 166/93 H Pulse Ox 07/25/18 07:13 95 07/25/18 03:24 94 07/24/18 22:53 97 07/24/18 19:06 98 07/24/18 18:01 95 07/24/18 17:00 98 07/24/18 16:35 98 07/24/18 16:00 95 07/24/18 15:50 100 07/24/18 15:40 97 07/24/18 15:30 99 07/24/18 15:20 100 07/24/18 15:10 100 07/24/18 15:00 100 07/24/18 14:50 100 07/24/18 14:40 100 07/24/18 11:22 97 Pain Intensity Medial Back: Pain Intensity: 4 Notes Mental Status: alert / awake / arousable Patient Amnestic to Procedure: Yes Nausea / Vomiting: adequately controlled Pain: adequately controlled Airway Patency, RR, SpO2: stable & adequate BP & HR: stable & adequate Hydration State: stable & adequate Anesthetic Complications: no major complications apparent and Pt Satisfied with anesthetic care
[2018-07-25] MEDS: CHECK FENTANYL PATCH PLACEMENT SCH ×3 (08:53→23:45)
[2018-07-25] MEDS: ASPIRIN 81 MG ECTAB PO SCH (08:54)
[2018-07-25] MEDS: BREO ELLIPTA: ORDER AWAITING ACTION SCH (08:54)
--- NOTE | 2018-07-25 09:07 | Orthopedic Progress Note ---
Date of Service July 25, 2018 Assessment & Plan (1) Spinal stenosis, lumbar region with neurogenic claudication: This time we will continue physical therapy monitor his GURPREET output consider home discharge tomorrow or . Present on Admission?: Yes Subjective Back pain controlled leg symptoms markedly improved. Physical Exam Vital Signs (Past 24 Hours): Last Vital Signs Temp 36.4 C L 07/25/18 07:13 Pulse 61 07/25/18 07:13 Resp 16 07/25/18 07:13 BP 153/85 H 07/25/18 07:13 Pulse Ox 95 07/25/18 07:13 Physical Exam: Patient is comfortable. Is good strength testing.
[2018-07-25] MEDS: TRAMADOL HCL 50 MG TABLET PO PRN (10:35)
[2018-07-25] MEDS: LORazepam 0.5 MG TAB PO PRN (16:07)
[2018-07-25] MEDS: LORATADINE 10 MG TAB PO SCH (21:14)
[2018-07-25] MEDS: ATORVASTATIN 40 MG TAB PO SCH (21:14)
[2018-07-25] MEDS: DOCUSATE SODIUM/SENNA 50/8.6MG TAB PO SCH (21:15)
[2018-07-25] MEDS: LISINOPRIL 10 MG TAB PO SCH (21:15)
[2018-07-25] MEDS: CHOLECALCIFEROL 1,000 UNITS TAB PO SCH (21:15)
[2018-07-26] MEDS: POLYETHYLENE (MIRALAX) 17 GM PACK PO SCH (05:25)
[2018-07-26] MEDS: CHECK FENTANYL PATCH PLACEMENT SCH (07:30)
[2018-07-26] MEDS: ASPIRIN 81 MG ECTAB PO SCH (07:30)
[2018-07-26] MEDS: BREO ELLIPTA: ORDER AWAITING ACTION SCH (08:50)
--- NOTE | 2018-07-26 12:38 | Discharge Summary ---
Date of Service July 26, 2018 Admission HPI Per Admitting Provider This is a 63-year-old male who presents with chronic persistent back and leg pain. After failing an extensive course of nonoperative care is here for surgical intervention. Principal Diagnosis Lumbar spinal stenosis with radiculopathy Discharge Data Allergies Allergy/AdvReac Type Severity Reaction Status Date / Time gabapentin AdvReac Unknown LEG Verified 07/24/18 11:12 SWELLING Consultations 07/24/18 16:01 Consult Case Management - Discharge Planning Routine Procedures Performed Operation Date: 07/24/18 12:25 Actual Procedures p L4-S1 Revision Decompression with Fusion, Application of Bone Morphogentic Protein and Osteoamp Allograft, Interbody Cage L4-L5(Not Applicable) - Jeffery Hatch DO Ordered Studies 07/24/18 12:25 FL fluoroscopy <1hr Routine FL lumbar spine 2-3V Routine Hospital Course (1) Spinal stenosis, lumbar region with neurogenic claudication: Patient underwent revision decompression and fusion tolerated this well was taken to orthopedic floor postoperative. Postop day 1 he was up and ambulate nicely he progressed to postop day #2. GURPREET drain decreasing appropriately. Subsequently discharged home. Discharge orders and instructions found in the chart for further review. Total Time Total Time Spent Total Time Spent (In Minutes): Not applicable Discharge Plan Discharge Items Patient Disposition: Home - Self-Care Reason For Visit: Other Biomechanical Lesions of Lumbar Region Discharge Diagnosis: lumbar stenosis Discharge Goals: Decrease discomfort Activity: Per 'Additional Instructions' section Non-emergency contact: Primary Care Provider Call non-emergency contact if: you have any medication questions Follow-up/Referrals: Kris Reese MD [Primary Care Provider] - Diet: Regular Addtl Provider Instructions: ACTIVITY RECOMMENDATIONS: SELF CARE INSTRUCTIONS AFTER THORACIC/LUMBAR FUSIONS 1. You may walk to your tolerance. It is good exercise for your legs and back. Expect some back and intermittent leg aches and pains. 2. You may perform "counter-top" level activities (make a sandwich, corey with a project, etc.). 3. No bending or lifting of more than 10 pounds or back twisting of any nature (roll like a log when turning in bed). 4. You may ride in a car for 20-30 minutes at a time. No driving until after your first visit with your doctor. 5. Frequent changes of position and restricting sitting to 30 minutes at a time will help limit the amount of back spasms and stiffness you may experience. 6. You may discontinue the use of ambulatory aids (cane, crutches, etc.) once your strength and confidence allow. 7. You may hot water heater installer the shower and let water strike your incision when you arr brock home at least once daily. Do not take a tub bath, sit in a hot tub or go into a swimming pool until after your first recheck in the office. SPECIAL CARE INSTRUCTIONS: VERY IMPORTANT TO READ AND REVIEW A. Your surgical incision has been closed with a cosmetic suture under the skin that will dissolve in about 6 weeks. In 14 days, you can use a pair of clean scissors and cut the suture that is left outside of the skin at the ends of your incision. 1. The small skin tapes can be removed 7 days after surgery if they have not fallen off by that point. 2. You may keep the wound open to air as much as possible to promote healing after post-op day number 5 unless told otherwise by your doctor. 3. If you think the wound looks like it is becoming infected (redness or worsening drainage) and/or you are experiencing fever, chill or worsening back pain and muscle spasms, contact the office so that we may evaluate you as soon as possible. B. Complications are uncommon, but please contact us if you have any signs or symptoms of: 1. wound infection (fever higher than 102.5 degrees F, redness, separation of wound, drainage, or increasing pain from the incision) 2. blood clots in legs (pain, swelling, redness and warmth in legs) 3. urinary tract infection (fever higher than 102.5 degrees F, burning upon urination or increased frequency of urination) 4. nerve problems (inability to walk on your toes or heels, numbness, loss of bowel or bladder control) 5. any other symptoms that concern you C. Please call the office at if you have any concerns or questions about your operation or recovery. D. No smoking! Smoking drastically decreases the chance of a solid fusion. E. Do not take any anti-inflammatory medications (Indocin, Advil, Motrin, Aspirin, Naprosyn, etc.) as these may inhibit the chance of a solid fusion. Tylenol is okay to take for pain. MANAGING PAIN AFTER SPINAL SURGERY 1. Narcotic medication is intended for short-term use and will be provided for surgical pain. Surgical pain usually lasts for a period of 4-6 weeks. Narcotic medication includes Percocet, Vicodin, Darvocet, Tylenol #3 or Lortab. 2. Longer-term pain is more appropriately treated with non-narcotic medication such as Tylenol ES. 3. Muscle spasm is not appropriately treated with narcotics. Muscle relaxers such as Soma, Flexeril or Skelaxin can be used along with Tylenol ES. 4. Remember that we all live with some "aches and pains". This is not unusual or uncommon after an injury or as we get older. a. Back pain is expected and may include muscle spasms for 4 to 6 weeks after surgery. The pain should gradually improve. If the pain worsens for no apparent reason, please contact the office. b. Intermittent leg pain may also be experienced and should not be concerned about unless it worsens for no apparent reason. If so, please contact the office. 5. We will provide appropriate medication within the normal guidelines of their prescribed use. We will also be very cautious and aware of potential abuse and extended duration of patients' medication needs. a. Pain medications are for your comfort and to assist with sleep and rest so that the tissue can heal. They are not provided in order to return to normal activity and should not be used through the day. To do so or worsening pain at night can result from ongoing tissue damage and development of tolerance to the prescribed medicine. 6. Please allow 2-3 days to process refills. Prescriptions will not be mailed but must be picked up at the office. FOLLOW UP VISIT: Keep your scheduled follow-up appointment. Any questions, please call the office at . Prescriptions: New oxycodone 5 mg Tablet 5 mg PO Q4H PRN (Reason: Pain) Qty: 30 RF: 0 Continued fentanyl 50 mcg/hr Patch 72 Hour 1 patch TRANSDERMAL Q72H RF: 0 acetaminophen [Tylenol Extra Strength] 500 mg Tablet 1 dose PO UD PRN (Reason: Pain) RF: 0 lisinopril 10 mg Tablet 10 mg PO QPM RF: 0 atorvastatin 40 mg Tablet 40 mg PO QPM RF: 0 aspirin [Aspir-81] 81 mg Tablet,Delayed Release (Dr/Ec) 81 mg PO DAILY RF: 0 lorazepam 0.5 mg Tablet 0.5 mg PO BID PRN (Reason: Anxiety) RF: 0 loratadine [Claritin] 10 mg Tablet 1 tab PO QPM RF: 0 naproxen 500 mg Tablet 500 mg PO BID PRN (Reason: Pain) RF: 0 cholecalciferol (vitamin D3) [Vitamin D3] 1,000 unit Capsule 1,000 unit PO QPM RF: 0 Breo Ellipta 100-25 mcg/dose Blister With Device 1 inh INHALATION DAILY PRN (Reason: Shortness Of Breath) RF: 0 Stand-Alone Forms: [facility], [facility], [facility] Discharge Orders: Discharge Order (Routine); Ordered 07/26/18 Ordered By: Jeffery Hatch Admission Data Admit Date/Time: 07/24/18 14:26 Attending Provider: Jeffery Hatch Admit Provider: Jeffery Hatch Primary Care Provider: Kris Reese Service: Surgical Services Other Interventions: Discharge Summary Assessment (RN) Last Done: 07/26/18 11:42
[2018-07-26] MEDS: TRAMADOL HCL 50 MG TABLET PO PRN (13:21)
== END 2018-07-26 13:53 | disposition home or self-care (01) | DRG 455 ==
LOC: ASU 10:52 → 3E 14:26

== ENCOUNTER 2023-03-17 07:26 | Inpatient (IN) ==
[2023-03-17] MEDS ORDERED: ONDANSETRON INJ 2 MG/ML 2 ML VIAL IV STA (08:00)
[2023-03-17] MEDS ORDERED: fentaNYL citrate PF 100 MCG/2 ML VIAL IV STA (08:00)
[2023-03-17 08:13] LABS: Basophils # (auto) 0.03 K/uL (0.00-0.20); Basophils % (auto) 0.4 %; Eosinophils # (auto) 0.02 K/uL (0.00-0.50); Eosinophils % (auto) 0.3 %; Hemoglobin 14.1 g/dl (14.0-18.0); Immature Granulocytes # (auto) 0.01 K/uL (0.01-0.20); Immature Granulocytes % (auto) 0.1 %; Lymphocytes # (auto) 0.86 K/uL (1.20-3.40); Lymphocytes % (auto) 12.1 %; Mean Corpuscular Hemoglobin 32.1 pg (25.0-34.0); Mean Corpuscular Hgb Conc 34.4 g/dL (32.0-36.0); Mean Corpuscular Volume 93.4 fL (80.0-100.0); Mean Platelet Volume 8.8 fL (9.4-12.4); Monocytes # (auto) 0.23 K/uL (0.11-0.59); Monocytes % (auto) 3.2 %; Neutrophils # (auto) 5.93 K/uL (1.40-6.50); Neutrophils % (auto) 83.9 %; Platelet Count 294 K/uL (130-400); RDW Coefficient of Variation 13.4 % (11.5-14.5); RDW Standard Deviation 45.9 fL (36.4-46.3); Red Blood Count 4.39 M/uL (4.70-6.10); White Blood Count 7.08 K/ul (4.8-10.8)
[2023-03-17] MEDS: SODIUM CHLORIDE 0.9% 1,000 ML IV SCH ×3 (08:13→22:22)
[2023-03-17 08:36] LABS: Albumin Globulin Ratio 1.9 (0.9-2); Albumin Level 4.7 gm/dl (3.4-5.0); BUN Creatinine Ratio 20.3 (10-20); Bilirubin,Total 0.7 mg/dl (0.2-1.0); Creatinine Clr Calc Pharmacy 68.9 ml/min; Est GFR (African American) 106.2 ml/min; Est GFR (Non-African American) 91.6 ml/min; Globulin 2.5 gm/dl (2.5-4.0); Potassium 4.3 mmol/L (3.5-5.1); Total Protein 7.2 gm/dl (6.0-8.3)
[2023-03-17] MEDS ORDERED: OPTIRAY 320 100ml IV ONE (09:04)
--- NOTE | 2023-03-17 09:34 | CT Scan Report ---
CT SCAN OF THE ABDOMEN AND PELVIS WITH IV CONTRAST CLINICAL HISTORY: Right inguinal hernia. Vomiting. COMPARISON STUDY: Abdominal CT dated 06/09/2017. TECHNIQUE: Following the IV administration of 93 cc of Optiray 320, CT scan of the abdomen and pelvi s is performed from the lung bases to the proximal femora. Images are reviewed in the axial, sagittal , and coronal planes. IV contrast was administered without complication. A dose lowering technique wa s utilized adhering to the principles of ALARA. CT DOSE: 383.99 mGy.cm FINDINGS: Lung bases: The heart is normal in size and without pericardial effusion. The coronary arteries are d ensely calcified. Emphysematous change is seen at the lung bases. No airspace consolidation or pleura l effusion is identified. There are scattered calcified granulomas. Liver: The contrast-enhanced liver is normal in size, contour, and attenuation. There is [id number] rate intrahepatic biliary ductal dilatation. This is similar to previous. The hepatic veins and mame l veins are patent. Gallbladder: Surgically absent and clips in the gallbladder fossa. Spleen: Normal in size and attenuation. There are calcified splenic granulomas. Pancreas: Unremarkable. Adrenal glands: Unremarkable. Kidneys: The contrast enhanced kidneys are normal in size and without hydronephrosis. The kidneys enh ance symmetrically. Small bilateral renal cysts measure up to 16 mm. Abdominal vasculature: There is advanced atherosclerotic calcification and ectasia of the abdominal a hasmukh. Bowel: There are numerous distended and fluid-filled loops of small bowel which measure up to 3.4 cm in diameter. There are completely decompressed loops of distal small bowel right lower quadrant. Ther e is fluid within a right inguinal hernia, and a loop of small bowel protrudes into the inguinal bobbi ia as seen on axial image #248. This does not clearly represent the site of obstruction. The transiti on point is not definitively seen, and likely located somewhere in the right lower quadrant. There is no pneumatosis intestinalis or portal venous gas. There is mild colonic diverticulosis without CT ev idence of acute diverticulitis a portion of the ascending colon is contained within a hernia within t he right posterior abdominal wall just above the iliac crest seen on axial image #142. This also does not clearly represent the site of obstruction. The appendix is normal as visualized. Peritoneum: No intraperitoneal free air is seen. There is trace perihepatic and perisplenic ascites. There is a small volume of pelvic ascites. Lymphadenopathy: None. Pelvic viscera: The prostate gland is enlarged and heterogeneous. A nodular focus of enhancement is s een within the left lobe on image #279 and measures up to 1.6 cm. The bladder is distended, and the w all is thickened/trabeculated indicating chronic outlet obstruction. Skeletal structures: The skeletal structures are osteopenic. There is moderate lumbosacral spondylosi s with postsurgical change from spinal fusion at L4-S1. No lytic or blastic lesions are seen. There i s a large bony defect in the superior right iliac wing. There is a subacute-appearing left anterior 6 th rib fracture. IMPRESSION: 1. High-grade small bowel obstruction as above. The transition point is not clearly delineated, but l ikely located in the right lower quadrant. Surgical evaluation is advised. 2. There is fluid within a right inguinal hernia, and a loop of distal small bowel protrudes into the hernia. This does not clearly represent the site of obstruction. 3. Additionally, there is a large hernia in the right posterior wall of the upper pelvis at the level of a defect within the right iliac wing. This contains a portion of the right colon and possibly por tions of small bowel. This also does not definitively represent the site of obstruction. 4. There is interloop fluid and abdominal ascites. 5. No intraperitoneal free air is seen. There is no pneumatosis intestinalis or portal venous gas. 6. Prostatomegaly evidence of chronic bladder outlet obstruction. An enhancing nodule is suggested wi thin the left aspect of the prostate. This is not well evaluated by CT and may be related to BPH. Cor relate with serum PSA levels. 7. Additional findings as above. ACT 112: Negative or not required by law. Electronically signed by: Mason Parrish M.D. 03/17/2023 9:32 AM
--- NOTE | 2023-03-17 11:11 | Surgery Consultation ---
Date of Consultation March 17, 2023 Assessment & Plan (1) H/O right inguinal hernia repair: Patient is a 68 yo male with PMH TIA, Arthritis, Emphysema/COPD, HTN, Spinal Stenosis, hypercholesteremia that presented to the [facility] ER with c/o right inguinal bulge with N/V that started early this AM around 0300. He was bending over trying to put his pants on and felt a "pop". He reports he then started having nausea with vomiting. He is s/p open RIH repair with Dr. Vyas 02/10/23 with mesh. They called the answering service which told them to come to the ER. The ER physician attempted to reduce the RIH before the patient was taken back to CT scan. The patient reports pain is a 2/10, and since being given antinausea medication he has not vomited. Blood thinners include a daily 81mg aspirin. CT scan reading 1. High-grade small bowel obstruction as above. The transition point is not clearly delineated, but likely located in the right lower quadrant. Surgical evaluation is advised. 2. There is fluid within a right inguinal hernia, and a loop of distal small bowel protrudes into the hernia. This does not clearly represent the site of obstruction. 3. Additionally, there is a large hernia in the right posterior wall of the upper pelvis at the level of a defect within the right iliac wing. This contains a portion of the right colon and possibly portions of small bowel. This also does not definitively represent the site of obstruction. 4. There is interloop fluid and abdominal ascites. 5. No intraperitoneal free air is seen. There is no pneumatosis intestinalis or portal venous gas. 6. Prostatomegaly evidence of chronic bladder outlet obstruction. An enhancing nodule is suggested within the left aspect of the prostate. This is not well evaluated by CT and may be related to BPH. Correlate with serum PSA levels. VSS WBC 7 Abdomen is soft, non-tender non-distended, RIH repair site healing as expected, no s/s of infection noted Posterior to RIH repair is a noticeable right groin bulge, tender to palpation, no skin color changes noted Dr. Hernandez was able to manually reduce right inguinal hernia in the ER Keep NPO Further recommendations will be forthcoming Plan Supervising Physician Co-Signing Physician Notes Patient seen and examined, labs and imaging reviewed, agree with above. Status post open right inguinal hernia repair with Dr. Vyas about 1 month ago. While putting on pants this morning he noticed sudden bulge and pain in his right groin and started vomiting. He was brought to the emergency department. Dr. Linton was able to partially reduce the hernia. CT scan was ordered and showed a recurrent hernia with some fluid in it as well as evidence of a bowel obstruction not associated with the hernia. He felt much better after the hernia was reduced. On exam he is currently afebrile with stable vitals. His abdomen is soft, his incision is well-healed. He has a small bulge in his right lower groin more lateral than would be expected for a direct or indirect hernia. This may represent a femoral hernia. Labs unremarkable. CT scan was personally viewed and interpreted by myself and agree with the assessment of what appears to be recurrent right inguinal hernia with some fluid and a portion of bowel that is not causing recurrent obstruction. He also has a lumbar triangle hernia on the right not causing obstruction. 68-year-old male status post open right inguinal hernia pair now with likely recurrence. It appears that he incarcerated a small piece of bowel that led to obstruction but resolved with manual reduction in the emergency department. The CT scan results probably reflect to the recent reduced hernia and are lagging his clinical improvement. We discussed his options to include discharged home with follow-up as an outpatient with Dr. Vyas versus discharge to home or admission and possible repair tomorrow with myself. He would like to have it re paired sooner rather than later, and given his clinical presentation I suggested that he remain overnight in case it reincarcerates or the obstruction is unrelated to his hernia. He also has what appears to be a right lumbar triangle hernia, and I informed him that we will likely not address this at that time Patient is being admitted to medicine, appreciate their assistance with this patient He may have clear liquids today, n.p.o. after midnight plan for robotic assisted laparoscopic right inguinal hernia repair, possible left, possible posterior abdominal hernia repair risks discussed to include but not limited to bleeding, infection, recurrence, chronic pain, damage to surrounding structures including testicle, need for future or more extensive surgery, and risks of anesthesia educated on signs and symptoms of incarceration, obstruction, and strangulation return precautions given, call with questions or concerns History of Present Illness Reason for Consultation: Recurrent Right Inguinal Hernia Attending Physician: Dr. Linton History of Present Illness Patient is a 68 yo male with PMH TIA, Arthritis, Emphysema/COPD, HTN, Spinal Stenosis, hypercholesteremia that presented to the [facility] ER with c/o right inguinal bulge with N/V that started early this AM around 0300. He was bending over trying to put his pants on and felt a "pop". He reports he then started having nausea with vomiting. He is s/p open RIH repair with Dr. Vyas 02/10/23. They called the answering service which told them to come to the ER. The ER physician attempted to reduce the RIH before the patient was taken back to CT scan. The patient reports pain is a 2/10, and since being given antinausea medication he has not vomited. Allergies Allergy/AdvReac Type Severity Reaction Status Date / Time gabapentin AdvReac Intermediate LEG Verified 02/23/23 13:10 SWELLING Home Medications Medication Instructions Recorded Confirmed Type cholecalciferol (vitamin D3) 25 1,000 unit PO QPM 01/03/18 03/17/23 History mcg (1,000 unit) capsule (Vitamin D3) fluticasone furoate 100 1 inh inhalation DAILY PRN 01/03/18 03/17/23 History mcg-vilanterol 25 mcg/dose Shortness Of Breath inhalation powder (Breo Ellipta) loratadine 10 mg tablet (Claritin) 1 tab PO QPM PRN seasonal allergies 01/03/18 03/17/23 History lorazepam 0.5 mg tablet 0.5 mg PO BID PRN Anxiety 01/03/18 03/17/23 History naproxen 500 mg tablet 500 mg PO BID PRN Pain 01/03/18 03/17/23 History acetaminophen 500 mg tablet 1,000 mg PO Q6H 07/03/18 03/17/23 History (Tylenol Extra Strength) fentanyl 12 mcg/hr transdermal 1 patch transdermal Q48H 03/07/20 03/17/23 History patch aspirin 81 mg tablet,delayed 81 mg PO QPM 07/07/20 03/17/23 History release lisinopril 20 mg tablet 20 mg PO QPM 01/31/23 03/17/23 History simvastatin 40 mg tablet 40 mg PO PM 01/31/23 03/17/23 History tramadol 50 mg tablet 50 mg PO Q6H 01/31/23 03/17/23 History Patient History Medical History Migraine HX Hx of gastric ulcer Depression History of TIA (transient ischemic attack) 2015. Treated at [facility], brain imaging and carotid US all WNL. Now on ASA 81mg.-NO ISSUES SINCE. Chronic back pain Anxiety Hyperlipidemia Chronic obstructive pulmonary disease inhaler 3-4x monthly. well controlled currently. Hypertension Surgical History H/O right inguinal hernia repair (02/10/23) Open Right Inguinal Hernia Repair with Mesh(Right) - Nuno Vyas DO History of open reduction and internal fixation (ORIF) procedure right wrist (2020 at [facility] with Dr Ewing) History of cataract surgery R/L History of esophagogastroduodenoscopy (EGD) S/P epidural steroid injection History of back surgery History of arthroscopy LEFT KNEE Fusion of spine LUMBAR FUSION History of colonoscopy History of cholecystectomy History of tonsillectomy Family History Other No family history of adverse response to anesthesia Social History Smoking Status: Current every day smoker Tobacco Type: Cigarettes Age Started Using Tobacco: 18; Cigarettes Per Day: 10 CIGS A DAY; Second Hand Exposure: No; Do You Dip or Chew Tobacco: No; Hx Alcohol Use: No Hx Substance Use: No Preferred Language: Indonesian Communication Ability: Effective Communication Ability Comment: HELPS WITH READING/WRITING Visual Impairment: No Limitations Hearing Ability: Normal [employer] Required: No Beliefs That Will Affect Care: None marital status: Current Living Situation: Spouse and Family Current Living Situation Comment: LIVES WITH AND SON current occupational status: disabled How many Children do You have: 1 Feels Safe at Home: Yes during the past year weight has: remained stable Assistive Devices: Glasses Review of Systems Constitutional: no fever and no sweats Respiratory: no dyspnea Cardiovascular: no chest pain Gastrointestinal: + abdominal pain (Right groin 06/18), + n ausea and + vomiting last BM last night Genitourinary: no problem reported Physical Exam Constitutional: cooperative and comfortable; no acute distress Respiratory: normal respiratory effort and able to speak in complete sentences; no respiratory distress Cardiovascular: Rate/Rhythm: regular rate Gastrointestinal (Abdomen): Inspection/Auscultation: + abdominal surgical incision (RIH repair site healing as expected, no s/s of infection noted ); abdomen not distended Percussion/Palpation: abdomen soft; no guarding Results & Data Vital Signs (Past 12 Hours) Vital Signs Temp Pulse Pulse Resp BP BP Pulse Ox 03/17/23 10:50 174/88 H 03/17/23 09:20 74 20 148/84 H 97 03/17/23 07:29 98.2 F 79 18 152/92 H 95 O2 Del Method 03/17/23 10:50 03/17/23 09:20 03/17/23 07:29 Room Air Diagnostic Findings [place], [place] [phone] CT Scan Report Patient: CORNELIA PIZANO Admit Date: 03/17/23 MR#: [id number] Address1: [address] [place] [address] Acct ID:[id number] Address2: Date: 1955 [facility] Zip: [place] [id number] Age: 68 Location: ED Sex: M Room/Bed: Att Phy: Diagnosis: REF BY DR Trinidad Hoy: Marilou Cat M.D. Service Date: 03/17/23 [facility] Phy: Interpreting Phy: Mason Parrish MDAdmit Phy: Ordering Phy: Dolores Linton M.D. cc: ~ CT SCAN OF THE ABDOMEN AND PELVIS WITH IV CONTRAST CLINICAL HISTORY: Right inguinal hernia. Vomiting. COMPARISON STUDY: Abdominal CT dated 06/09/2017. TECHNIQUE: Following the IV administration of 93 cc of Optiray 320, CT scan of the abdomen and pelvis is performed from the lung bases to the proximal femora. Images are reviewed in the axial, sagittal, and coronal planes. IV contrast was administered without complication. A dose lowering technique was utilized adhering to the principles of ALARA. CT DOSE: 383.99 mGy.cm FINDINGS: Lung bases: The heart is normal in size and without pericardial effusion. The coronary arteries are densely calcified. Emphysematous change is seen at the lung bases. No airspace consolidation or pleural effusion is identified. There are scattered calcified granulomas. Liver: The contrast-enhanced liver is normal in size, contour, and attenuation. There is [id number] intrahepatic biliary ductal dilatation. This is similar to previous. The hepatic veins and portal veins are patent. Gallbladder: Surgically absent and clips in the gallbladder fossa. Spleen: Normal in size and attenuation. There are calcified splenic granulomas. Pancreas: Unremarkable. Adrenal glands: Unremarkable. Kidneys: The contrast enhanced kidneys are normal in size and without hydronephrosis. The kidneys enhance symmetrically. Small bilateral renal cysts measure up to 16 mm. Abdominal vasculature: There is advanced atherosclerotic calcification and ectasia of the abdominal aorta. Bowel: There are numerous distended and fluid-filled loops of small bowel which measure up to 3.4 cm in diameter. There are completely decompressed loops of distal small bowel right lower quadrant. There is fluid within a right inguinal hernia, and a loop of small bowel protrudes into the inguinal hernia as seen on axial image #248. This does not clearly represent the site of obstruction. The transition point is not definitively seen, and likely located somewhere in the right lower quadrant. There is no pneumatosis intestinalis or portal venous gas. There is mild colonic diverticulosis without CT evidence of acute diverticulitis a portion of the ascending colon is contained within a hernia within the right posterior abdominal wall just above the iliac crest seen on axial image #142. This also does not clearly represent the site of obstruction. The appendix is normal as visualized. Peritoneum: No intraperitoneal free air is seen. There is trace perihepatic and perisplenic ascites. There is a small volume of pelvic ascites. Lymphadenopathy: None. Pelvic viscera: The prostate gland is enlarged and heterogeneous. A nodular focus of enhancement is seen within the left lobe on image #279 and measures up to 1.6 cm. The bladder is distended, and the wall is thickened/trabeculated indicating chronic outlet obstruction. Skeletal structures: The skeletal structures are osteopenic. There is moderate lumbosacral spondylosis with postsurgical change from spinal fusion at L4-S1. No lytic or blastic lesions are seen. There is a large bony defect in the superior right iliac wing. There is a subacute-appearing left anterior 6th rib fracture. IMPRESSION: 1. High-grade small bowel obstruction as above. The transition point is not clearly delineated, but likely located in the right lower quadrant. Surgical evaluation is advised. 2. There is fluid within a right inguinal hernia, and a loop of distal small bowel protrudes into the hernia. This does not clearly represent the site of obstruction. 3. Additionally, there is a large hernia in the right posterior wall of the upper pelvis at the level of a defect within the right iliac wing. This contains a portion of the right colon and possibly portions of small bowel. This also does not definitively represent the site of obstruction. 4. There is interloop fluid and abdominal ascites. 5. No intraperitoneal free air is seen. There is no pneumatosis intestinalis or portal venous gas. 6. Prostatomegaly evidence of chronic bladder outlet obstruction. An enhancing nodule is suggested within the left aspect of the prostate. This is not well evaluated by CT and may be related to BPH. Correlate with serum PSA levels. 7. Additional findings as above. ACT 112: Negative or not required by law. Electronically signed by: Mason Parrish M.D. 03/17/2023 9:32 AM Dictated: 03/17/23906 Transcribed: 03/17/23906 PG Care Time/CCT Total # of Minutes Spent Total Time Spent with Patient: Total time spent is greater than 50% in coordination of care (as documented) at patient's floor/unit and/or counseling patient: Coding Level of Care Code 85724 OFFICE CONSULT LVL 08/05M Diagnoses H/O right inguinal hernia repair Z98.890; Z87.19
--- NOTE | 2023-03-17 11:56 | History & Physical Report ---
Date of Service March 17, 2023 Assessment & Plan (1) H/O right inguinal hernia repair: (2) Small bowel obstruction: (3) Hypercholesteremia: (4) Transient ischemic attack (TIA): (5) Spinal stenosis, lumbar region with neurogenic claudication: (6) Chronic obstructive pulmonary disease: (7) Left lumbar radiculopathy: Alisson Cano is a 68M with history of anxiety, COPD/asthma, chronic pain (d/t spondylolisthesis s/p laminectomy on Fentanyl patch), HTN, HLD, tobacco use, and prior stroke/TIA who presents for evaluation of abdominal pain and emesis. Of note, patient recently had right inguinal hernia repair surgery on 02/10/23. High Grade SBO s/p Inguinal Hernia Repair - Recent Inguinal Hernia Repair 02/10/23 - Patient experiencing sudden 'pop' followed by nausea/emesis this AM - Labs largely unremarkable - CT indicating * High grade SBO, unclear transition point, likely RLQ * Fluid w/in R inguinal hernia and loop of distal small bowel protruding into hernia * Large hernia in R posterior wall of upper pelvis at the level of the defect in the right iliac wing containing portion of right colon and possibly portion of small bowel * Interloop fluid and abdominal ascites * No intraperitoneal free air, no pneumatosis intestinalis or portal venous gas - Patient resenting w/o nausea, s/p Zofran, no active emesis, continue Zofran PRN - General surgery consulted, fully reduced at bedside, recommending clear liquids w/ NPO at midnight * Current plan for surgical intervention 03/[address] Lance - Patient denies hernia pain, continue home regimen for back pain w/ following adjustments * Ongoing Fentanyl patch, due for replacement 03/18 * Tylenol 1000 mg IV Q8h (PO Tylenol scheduled at home) * NSAIDS held at this time, would add Toradol if additional pain control needed * Narcan ordered PRN Hyponatremia (Mild) - Labs indicating Na 131, appears chronic for patient Chronic Conditions - Hypertension - PO medications held pending PO trial - Hyperlipidemia - PO medications held pending PO trial - Asthma/COPD - continue Breo inhaler PRN - Hx of TIA/Stroke - PO medications held pending PO trial - Spondylolisthesis s/p Laminectomy - pain management as above FEN: Clear Liquids, NPO after midnight Code status: DNR/DNI DVT ppx: Held Pending Surgical Mgmt Isolation: None Dispo:Med/Surg History of Present Illness Chief Complaint: RLQ Pain, Vomitting Primary Care Provider: Morteza Cat Jerome is a 68M with history of anxiety, COPD/asthma, chronic pain (d/t spondylolisthesis s/p laminectomy on Fentanyl patch), HTN, HLD, tobacco use, and prior stroke/TIA who presents for evaluation of abdominal pain and emesis. Of note, patient recently had right inguinal hernia repair surgery on 02/10/23. Patient notes that this morning while putting on his sweatpants and lifting his left leg he experienced a popping sensation in his RLQ. Patient denies pain after the episode, but notes that he immediately became nauseous and started vomiting. Patient has not had any emesis or abdominal pain since presentation to the ER, he notes that his chronic back pain is worsening d/t not taking his home medication today. Patient notes that he used to work on [employer] prior to his hernia repair, but since surgery he has been primarily tinkering around in the garage and not lifting more than 15 lbs. Patient denies any chest pain, dyspnea, headaches, dysuria, diarrhea or constipation. He notes that his last bowel movement was 03/16, not actively passing flatus. Patient currently smokes 4-5 cigarettes daily and is not interested in cessation, he continues to take Breo Elipta PRN for dyspnea/wheezing. Patient is on chronic pain management with Fentayl patch, Tylenol, Naproxen PRN, and Tramadol - patch is due to be changed 03/18. ED Course: Partial reduction of hernia, CT scan, full manual reduction by general surgery in ED, pain management with 50 mcg of IV fentanyl and Zofran Allergies Allergy/AdvReac Type Severity Reaction Status Date / Time gabapentin AdvReac Intermediate LEG Verified 02/23/23 13:10 SWELLING Home Medications Medication Instructions Recorded Confirmed Type cholecalciferol (vitamin D3) 25 1,000 unit PO QPM 01/03/18 03/17/23 History mcg (1,000 unit) capsule (Vitamin D3) fluticasone furoate 100 1 inh inhalation DAILY PRN 01/03/18 03/17/23 History mcg-vilanterol 25 mcg/dose Shortness Of Breath inhalation powder (Breo Ellipta) loratadine 10 mg tablet (Claritin) 1 tab PO QPM PRN seasonal allergies 01/03/18 03/17/23 History lorazepam 0.5 mg tablet 0.5 mg PO BID PRN Anxiety 01/03/18 03/17/23 History naproxen 500 mg tablet 500 mg PO BID PRN Pain 01/03/18 03/17/23 History acetaminophen 500 mg tablet 1,000 mg PO Q6H 07/03/18 03/17/23 History (Tylenol Extra Strength) fentanyl 12 mcg/hr transdermal 1 patch transdermal Q48H 03/07/20 03/17/23 History patch aspirin 81 mg tablet,delayed 81 mg PO QPM 07/07/20 03/17/23 History release lisinopril 20 mg tablet 20 mg PO QPM 01/31/23 03/17/23 History simvastatin 40 mg tablet 40 mg PO PM 01/31/23 03/17/23 History tramadol 50 mg tablet 50 mg PO Q6H 01/31/23 03/17/23 History Past Med/Surg History Medical History Migraine HX Hx of gastric ulcer Depression History of TIA (transient ischemic attack) 2015. Treated at [facility], brain imaging and carotid US all WNL. Now on ASA 81mg.-NO ISSUES SINCE. Chronic back pain Anxiety Hyperlipidemia Chronic obstructive pulmonary disease inhaler 3-4x monthly. well controlled currently. Hypertension Surgical History H/O right inguinal hernia repair (02/10/23) Open Right Inguinal Hernia Repair with Mesh(Right) - Nuno Vyas, History of open reduction and internal fixation (ORIF) procedure right wrist (2020 at [facility] with Dr Ewing) History of cataract surgery R/L History of esophagogastroduodenoscopy (EGD) S/P epidural steroid injection History of back surgery History of arthroscopy LEFT KNEE Fusion of spine LUMBAR FUSION History of colonoscopy History of cholecystectomy History of tonsillectomy Family History Other No family history of adverse response to anesthesia Social History Smoking Status: Current every day smoker Tobacco Type: Cigarettes Age Started Using Tobacco: 18; Cigarettes Per Day: 10 CIGS A DAY; Second Hand Exposure: No; Do You Dip or Chew Tobacco: No; Hx Alcohol Use: No Hx Substance Use: No Preferred Language: Maltese Communication Ability: Effective Communication Ability Comment: HELPS WITH READING/WRITING Visual Impairment: No Limitations Hearing Ability: Normal Multimedia Coordinator Required: No Beliefs That Will Affect Care: None marital status: Current Living Situation: Spouse and Family Current Living Situation Comment: LIVES WITH AND SON current occupational status: disabled How many Children do You have: 1 Feels Safe at Home: Yes during the past year weight has: remained stable Assistive Devices: Glasses Physical Exam Physical Exam: Gen: NAD, alert, interactive HEENT: Supple, no LAD, no JVD Resp:Non-labored, bilateral inspiratory/expiratory wheezing, CTAB CV:RRR, normal S1/S2, no M/R/G Abd: Soft, non-distended, no TTP, normoactive bowels, non-tender R inguinal bulge inferior to well healing RLQ scar Extr: 2+ dp bilaterally, no edema Skin: No rashes lesions or erythema Results & Data Results & Data Vital Signs (Past 12 Hours) Vital Signs Temp Pulse Pulse Resp BP BP Pulse Ox 03/17/23 10:50 174/88 H 03/17/23 09:20 74 20 148/84 H 97 03/17/23 07:29 36.8 C 79 18 152/92 H 95 O2 Del Method 03/17/23 10:50 03/17/23 09:20 03/17/23 07:29 Room Air Laboratory Results 03/17/23 03/17/23 08:14 07:47 WBC 7.08 RBC 4.39 L Hgb 14.1 Hct 41.0 L MCV 93.4 MCH 32.1 MCHC 34.4 RDW Std Deviation 45.9 RDW Coeff of Bandar 13.4 Plt Count 294 MPV 8.8 L Immature Gran % (Auto) 0.1 Neut % (Auto) 83.9 Lymph % (Auto) 12.1 [place] % (Auto) 3.2 Eos % (Auto) 0.3 Baso % (Auto) 0.4 Neut # (Auto) 5.93 Lymph # (Auto) 0.86 L [place] # (Auto) 0.23 Eos # (Auto) 0.02 Baso # (Auto) 0.03 Immature Gran # (Auto) 0.01 Sodium 131 L Potassium 4.3 Chloride 94 L Carbon Dioxide 30 Anion Gap 7 BUN 16 Creatinine 0.79 Est Cr Clr Drug Dosing 68.9 Est GFR ( Amer) 106.2 Est GFR (Non-Af Amer) 91.6 BUN/Creatinine Ratio 20.3 H Glucose 113 H Lactate 1.1 Calcium 10.0 Total Bilirubin 0.7 AST 22 ALT 14 Alkaline Phosphatase 82 Total Protein 7.2 Albumin 4.7 Globulin 2.5 Albumin/Globulin Ratio 1.9 Diagnostic Findings Abdomen/Pelvis CT 03/17/23 08:00 CT SCAN OF THE ABDOMEN AND PELVIS WITH IV CONTRAST CLINICAL HISTORY: Right inguinal hernia. Vomiting. COMPARISON STUDY: Abdominal CT dated 06/09/2017. TECHNIQUE: Following the IV administration of 93 cc of Optiray 320, CT scan of the abdomen and pelvis is performed from the lung bases to the proximal femora. Images are reviewed in the axial, sagittal, and coronal planes. IV contrast was administered without complication. A dose lowering technique was utilized adhering to the principles of ALARA. CT DOSE: 383.99 mGy.cm FINDINGS: Lung bases: The heart is normal in size and without pericardial effusion. The coronary arteries are densely calcified. Emphysematous change is seen at the lung bases. No airspace consolidation or pleural effusion is identified. There are scattered calcified granulomas. Liver: The contrast-enhanced liver is normal in size, contour, and attenuation. There is [id number] intrahepatic biliary ductal dilatation. This is similar to previous. The hepatic veins and portal veins are patent. Gallbladder: Surgically absent and clips in the gallbladder fossa. Spleen: Normal in size and attenuation. There are calcified splenic granulomas. Pancreas: Unremarkable. Adrenal glands: Unremarkable. Kidneys: The contrast enhanced kidneys are normal in size and without hydronephrosis. The kidneys enhance symmetrically. Small bilateral renal cysts measure up to 16 mm. Abdominal vasculature: There is advanced atherosclerotic calcification and ectasia of the abdominal aorta. Bowel: There are numerous distended and fluid-filled loops of small bowel which measure up to 3.4 cm in diameter. There are completely decompressed loops of distal small bowel right lower quadrant. There is fluid within a right inguinal hernia, and a loop of small bowel protrudes into the inguinal hernia as seen on axial image #248. This does not clearly represent the site of obstruction. The transition point is not definitively seen, and likely located somewhere in the right lower quadrant. There is no pneumatosis intestinalis or portal venous gas. There is mild colonic diverticulosis without CT evidence of acute diverticulitis a portion of the ascending colon is contained within a hernia within the right posterior abdominal wall just above the iliac crest seen on axial image #142. This also does not clearly represent the site of obstruction. The appendix is normal as visualized. Peritoneum: No intraperitoneal free air is seen. There is trace perihepatic and perisplenic ascites. There is a small volume of pelvic ascites. Lymphadenopathy: None. Pelvic viscera: The prostate gland is enlarged and heterogeneous. A nodular focus of enhancement is seen within the left lobe on image #279 and measures up to 1.6 cm. The bladder is distended, and the wall is thickened/trabeculated indicating chronic outlet obstruction. Skeletal structures: The skeletal structures are osteopenic. There is moderate lumbosacral spondylosis with postsurgical change from spinal fusion at L4-S1. No lytic or blastic lesions are seen. There is a large bony defect in the superior right iliac wing. There is a subacute-appearing left anterior 6th rib fracture. IMPRESSION: 1. High-grade small bowel obstruction as above. The transition point is not clearly delineated, but likely located in the right lower quadrant. Surgical evaluation is advised. 2. There is fluid within a right inguinal hernia, and a loop of distal small bowel protrudes into the hernia. This does not clearly represent the site of obstruction. 3. Additionally, there is a large hernia in the right posterior wall of the upp er pelvis at the level of a defect within the right iliac wing. This contains a portion of the right colon and possibly portions of small bowel. This also does not definitively represent the site of obstruction. 4. There is interloop fluid and abdominal ascites. 5. No intraperitoneal free air is seen. There is no pneumatosis intestinalis or portal venous gas. 6. Prostatomegaly evidence of chronic bladder outlet obstruction. An enhancing nodule is suggested within the left aspect of the prostate. This is not well evaluated by CT and may be related to BPH. Correlate with serum PSA levels. 7. Additional findings as above. ACT 112: Negative or not required by law. Electronically signed by: Mason Parrish M.D. 03/17/2023 9:32 AM Supervising Physician Co-Signing Physician Notes Patient seen and examined, chart reviewed, case discussed with Dori Cano, and I agree with the assessment and plan as above except as otherwise noted Labs and images reviewed Jerome is a 68-year-old male with a past medical history of right inguinal hernia repair 02/2023, hyperlipidemia, lumbar radiculopathy, anxiety/depression TIA, arthritis, COPD who presented to the ER on referral from his primary care physician. CT of the abdomen/pelvis shows high-grade small bowel obstruction with suspected transition point in right lower quadrant. A right inguinal hernia with loop of distal small bowel protruding to the hernia, a large hernia in the right posterior wall of the upper pelvis containing a port ion of right colon and possible portion of small bowel are noted although neither definitively the site of obstruction.. Interloop fluid and ascites is noted, no pneumatosis intestinalis or free air are seen. Prostatomegaly and suspected chronic bladder outlet obstruction with enhancing nodule is seen On lab review no leukocytosis, hemoglobin is normal, creatinine is normal,.Baseline EKG is normal sinus rhythm with a normal MI and QRS last checked 01/2023. Chronically on fentanyl patch for back pain w/ hx of laminectomy/arie placement. Pt reports [place] a R sided abdominal 'pop' thi smornign when putting on his pants. No pain but immediate nausea and vomiting. Has had worsening of his chronic back pain due to not being able to take his normal home meds due to nausea. No chest pain, shortness of breath, dytsuria. Smokes four to five cigarettes per day. Takes breo for dysnpnea which is reasonably well controlled but +wheezing at his normal baseline. Fent patch due to chagne tomorrow, usually works well for pain but some increase as he has not taken his tramadol. While in ER had a partial reduction of hernia, CT scan, then full reduction with Gen Surgery. Anticipated for hernia repair in OR tomorrow. Recommended for admit and pain control, NPO for SBO until then. RRR no mrg, lungs with bilateral insp and exp wheezing no rhonchi/rales. abd exam--> R inguinal surgical incision C/D/I, palpable inferior bulge NT to palpation. Ab soft NT ND, BS diminished but intact. SBO: Last BM yesterday. BS intact. No flatus. Patient may have clears until midnight and then n.p.o. per surgery. if n/v return --> strict NPO and NGT to LIS. PO meds converted to IV temporarily, resume PO 03/18 if progressing/stable. Inguinal hernia, abdominal wall hernia: Surgery consulted, strict npo at 0000 f or OR 03/18 COPD: Breo continued. +wheezing, at baseline per pt with no recent increase, no sputum change or dyspnea. Continue breo +albuterol. Pt with no interest in tobacco cessation/precontemplative Anxiety/depression: Lorazepam home dosing converted to IV for risk of withdrawal due to regular use, dose decreased. Hyperlipidemia: Statin held while n.p.o. for obstruction, aspirin held while NPO. This is for primary prophylaxis, no history of stent Resident Activity Tracking Resident Involvement: Resident Care Provided Care Provided: Adult Hospital Medicine
[2023-03-17] MEDS ORDERED: SODIUM CHLORIDE 0.9% 500 ML IV ONE (11:57)
--- NOTE | 2023-03-17 11:58 | Emergency Department Note ---
Impression & Plan Incarcerated right inguinal hernia, Small bowel obstruction ED Provider Note CHIEF COMPLAINT: pop in the right inguinal region HISTORY OF PRESENT ILLNESS: This 68-year-old male patient with past medical history of right inguinal hernia repair in early February, chronic back pain, TIA, spinal stenosis, emphysema/COPD, hypertension presents to the emergency department after waking up this morning, attempting to put on his sweatpants and feeling a pop in the right lower inguinal region. The patient states he had an inguinal hernia repair recently and has been doing well until this time. He did have sudden onset of pain and shortly thereafter began vomiting. This occurred at approximately 4 AM. The patient did not notice any blood in the emesis. He denies any bloody stools. He has not had a fever. He did call the general surgery on-call who referred him to the ER for evaluation. REVIEW OF SYSTEMS: A review of systems was performed with positives and pertinent negatives listed in the history of present illness. 10 systems were reviewed and are otherwise negative. ALLERGIES: see below MEDICATIONS: see below PMH: see below SOCIAL HISTORY: see below DDx: Dehydration, electrolyte abnormality, small bowel obstruction, inguinal hernia, kidney stone, UTI among others. PHYSICAL EXAM: Vital signs reviewed. General: Chronically ill-appearing 68-year-old male, in no significant distress. HEENT: No scleral icterus, PERRLA, neck supple. Atraumatic. Cardiovascular: Regular rate and rhythm, no extra sounds. Pulmonary: Clear to auscultation bilaterally, normal work of breathing. Abdomen: Soft, mild diffuse tenderness, positive tympany to percussion, nondistended, positive bowel sounds. Musculoskeletal: Atraumatic, no peripheral edema. : Normal external male genitals, right inguinal region with postoperative scar, bulge at the right inguinal canal. Neurologic: Patient awake alert and oriented x 3, speech is clear Skin: Warm, dry, no rash EMERGENCY DEPARTMENT COURSE/MDM: This patient was evaluated and appeared to be in no significant distress. IV access was obtained and laboratory work was drawn. Patient's physical examination is consistent with an incarcerated right inguinal hernia. Gentle pressure was applied over the hernia and was able to be easily reduced. Patient was given IV fentanyl and Zofran for his discomfort and hydrated with normal saline solution. CT imaging of the abdomen pelvis was performed and is read as below with small bowel obstruction and several identified hernias. The patient was discussed with general surgery, Dr. Torri Baxter, Dr. Lance and SHAUNA Garcia. They did evaluate the patient in the emergency department. The right inguinal hernia was able to be further reduced. Case was discussed with the hospitalist service and plans for surgical management of the right inguinal hernia were made with Dr. Lance tomorrow. Patient and are made aware of the plan and agreed. Patient did not have any further vomiting in the emergency department. MONITORING: An order for cardiac monitoring was placed and the patient is noted to be in a normal sinus rhythm at 63 beats per minute. RADIOLOGY: see below DISPOSITION: admission Past Med/Surg History Medical History Migraine HX Hx of gastric ulcer Depression History of TIA (transient ischemic attack) 2015. Treated at [facility], brain imaging and carotid US all WNL. Now on ASA 81mg.-NO ISSUES SINCE. Chronic back pain Anxiety Hyperlipidemia Chronic obstructive pulmonary disease inhaler 3-4x monthly. well controlled currently. Hypertension Surgical History H/O right inguinal hernia repair (02/10/23) Open Right Inguinal Hernia Repair with Mesh(Right) - Nuno Vyas, History of open reduction and internal fixation (ORIF) procedure right wrist (2020 at [facility] with Dr Ewing) History of cataract surgery R/L History of esophagogastroduodenoscopy (EGD) S/P epidural steroid injection History of back surgery History of arthroscopy LEFT KNEE Fusion of spine LUMBAR FUSION History of colonoscopy History of cholecystectomy History of tonsillectomy Family History Other No family history of adverse response to anesthesia Social History Smoking Status: Current every day smoker Tobacco Type: Cigarettes Age Started Using Tobacco: 18; Cigarettes Per Day: 10; Second Hand Exposure: No; Do You Dip or Chew Tobacco: No; Hx Alcohol Use: No Hx Substance Use: No Preferred Language: Serbian Communication Ability: Effective Communication Ability Comment: HELPS WITH READING/WRITING Visual Impairment: No Limitations Hearing Ability: Normal 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 Required: No Beliefs That Will Affect Care: None marital status: Current Living Situation: Spouse and Family Current Living Situation Comment: LIVES WITH AND SON current occupational status: disabled How many Children do You have: 1 Feels Safe at Home: Yes during the past year weight has: remained stable Assistive Devices: Glasses Allergies Allergies Allergy/AdvReac Type Severity Reaction Status Date / Time gabapentin AdvReac Intermediate LEG Verified 02/23/23 13:10 SWELLING Home Meds Home Medications Medication Instructions Recorded Confirmed cholecalciferol (vitamin D3) 25 1,000 unit PO QPM 01/03/18 03/17/23 mcg (1,000 unit) capsule (Vitamin D3) fluticasone furoate 100 1 inh inhalation DAILY PRN 01/03/18 03/17/23 mcg-vilanterol 25 mcg/dose Shortness Of Breath inhalation powder (Breo Ellipta) loratadine 10 mg tablet (Claritin) 1 tab PO QPM PRN seasonal allergies 01/03/18 03/17/23 lorazepam 0.5 mg tablet 0.5 mg PO BID PRN Anxiety 01/03/18 03/17/23 naproxen 500 mg tablet 500 mg PO BID PRN Pain 01/03/18 03/17/23 acetaminophen 500 mg tablet 1,000 mg PO Q6H 07/03/18 03/17/23 (Tylenol Extra Strength) fentanyl 12 mcg/hr transdermal 1 patch transdermal Q48H 03/07/20 03/17/23 patch aspirin 81 mg tablet,delayed 81 mg PO QPM 07/07/20 03/17/23 release lisinopril 20 mg tablet 20 mg PO QPM 01/31/23 03/17/23 simvastatin 40 mg tablet 40 mg PO PM 01/31/23 03/17/23 tramadol 50 mg tablet 50 mg PO Q6H 01/31/23 03/17/23 Results & Data (ED) Vital Signs Vital Signs - 24 hr 03/17/23 07:29 03/17/23 09:20 03/17/23 10:50 Temperature 36.8 C Temperature Source Oral Pulse Rate 79 Pulse Rate [Apical] 74 Pulse Rhythm Regular Pulse Strength Normal Respiratory Rate 18 20 Respiratory Effort / Characteristics Non-Labored Non-Labored Spontaneous Respiratory Depth Normal Normal Respiratory Pattern Regular Blood Pressure 152/92 H Blood Pressure [Left Radial Artery] 148/84 H 174/88 H Blood Pressure Mean 112 Blood Pressure Mean [Left Radial Artery] 105 116 Blood Pressure Position Sitting Blood Pressure Position [Left Radial Artery] Pulse Oximetry 95 97 Oxygen Delivery Method Room Air Sepsis Recent Fever Within 48 Hours No Sepsis New/Unexplained Change in Mental Status No Sepsis Action Taken by Nursing No Action Required 03/17/23 11:24 Temperature 36.7 C Temperature Source Oral Pulse Rate Pulse Rate [Apical] 59 L Pulse Rhythm Pulse Strength Respiratory Rate 18 Respiratory Effort / Characteristics Non-Labored Spontaneous Respiratory Depth Normal Respiratory Pattern Blood Pressure Blood Pressure [Left Radial Artery] 190/94 H Blood Pressure Mean Blood Pressure Mean [Left Radial Artery] 126 Blood Pressure Position Blood Pressure Position [Left Radial Artery] Lying Pulse Oximetry 97 Oxygen Delivery Method Room Air Sepsis Recent Fever Within 48 Hours Sepsis New/Unexplained Change in Mental Status Sepsis Action Taken by [facility] Medications Current Medication List: was personally reviewed by me Laboratory Data Attestation: I reviewed the patient's lab results. 03/17/23 07:47 03/17/23 07:47 Lab Results 03/17/23 03/17/23 Range/Units 07:47 08:14 WBC 7.08 (4.8-10.8) K/ul RBC 4.39 L (4.70-6.10) M/uL Hgb 14.1 (14.0-18.0) g/dl Hct 41.0 L (42.0-52.0) % MCV 93.4 (80.0-100.0) fL MCH 32.1 (25.0-34.0) pg MCHC 34.4 (32.0-36.0) g/dL RDW Std Deviation 45.9 (36.4-46.3) fL RDW Coeff of Bandar 13.4 (11.5-14.5) % Plt Count 294 (130-400) K/uL MPV 8.8 L (9.4-12.4) fL Immature Gran % (Auto) 0.1 % Neut % (Auto) 83.9 % Lymph % (Auto) 12.1 % Bacon % (Auto) 3.2 % Eos % (Auto) 0.3 % Baso % (Auto) 0.4 % Neut # (Auto) 5.93 (1.40-6.50) K/uL Lymph # (Auto) 0.86 L (1.20-3.40) K/uL Bacon # (Auto) 0.23 (0.11-0.59) K/uL Eos # (Auto) 0.02 (0.00-0.50) K/uL Baso # (Auto) 0.03 (0.00-0.20) K/uL Immature Gran # (Auto) 0.01 (0.01-0.20) K/uL Sodium 131 L (136-145) mmol/L Potassium 4.3 (3.5-5.1) mmol/L Chloride 94 L (98-107) mmol/L Carbon Dioxide 30 (21-32) mmol/L Anion Gap 7 (3-11) BUN 16 (6-23) mg/dl Creatinine 0.79 (0.6-1.4) mg/dl Est Cr Clr Drug Dosing 68.9 ml/min Est GFR ( Amer) 106.2 ml/min Est GFR (Non-Af Amer) 91.6 ml/min BUN/Creatinine Ratio 20.3 H (10-20) Glucose 113 H (70-99(Fasting)) mg/dl Lactate 1.1 (0.4-2.0) mmol/L Calcium 10.0 (8.6-10.3) mg/dl Total Bilirubin 0.7 (0.2-1.0) mg/dl AST 22 (13-39) U/L ALT 14 (7-52) U/L Alkaline Phosphatase 82 (34-104) U/L Total Protein 7.2 (6.0-8.3) gm/dl Albumin 4.7 (3.4-5.0) gm/dl Globulin 2.5 (2.5-4.0) gm/dl Albumin/Globulin Ratio 1.9 (0.9-2) Administered Medications Sodium Chloride (Nss) 1,000 mls @ 125 mls/hr IV .Q8H YAKOV Stop: 04/16/23 07:59 Last Admin: 03/17/23 14:54 Dose: 125 mls/hr Documented By: Infusion: 03/17/23 14:54 Dose: Infused Documented By: Admin: 03/17/23 08:13 Dose: 125 mls/hr Documented By: Acetaminophen (Ofirmev) 1,000 mg in 100 mls @ 400 mls/hr IV Q8 YAKOV Stop: 03/20/23 14:22 Last Infusion: 03/17/23 15:35 Dose: Infused Documented By: Admin: 03/17/23 14:54 Dose: 400 mls/hr Documented By: SHEILA Miscellaneous (Check Fentanyl Patch Placement) 1 each N/A QS YAKOV Stop: 04/16/23 15:59 Last Admin: 03/17/23 14:59 Dose: 1 each Documented By: SHEILA Discontinued Medications Fentanyl Citrate (Fentanyl Citrate Pf 100 Mcg/2 Ml Vial) 50 mcg IV NOW STA Stop: 03/17/23 08:01 Last Admin: 03/17/23 08:13 Dose: 50 mcg Documented By: LAINE Sodium Chloride (Nss) 500 mls @ 999 mls/hr IV .Q31M ONE Stop: 03/17/23 12:27 Last Infusion: 03/17/23 13:53 Dose: Infused Documented By: Admin: 03/17/23 12:52 Dose: 999 mls/hr Documented By: CARMENCITA Ioversol (Optiray 320 100ml) 93 ml IV ONCE ONE Stop: 03/17/23 09:05 Last Admin: 03/17/23 09:04 Dose: 93 ml Documented By: ESPERANZA Ondansetron HCl (Ondansetron Inj 2 Mg/Ml 2 Ml Vial) 4 mg IV NOW STA Stop: 03/17/23 08:01 Last Admin: 03/17/23 08:13 Dose: 4 mg Documented By: LAINE Imaging Data Radiologist's Impression: Abdomen/Pelvis CT 03/17/23 08:00 CT SCAN OF THE ABDOMEN AND PELVIS WITH IV CONTRAST CLINICAL HISTORY: Right inguinal hernia. Vomiting. COMPARISON STUDY: Abdominal CT dated 06/09/2017. TECHNIQUE: Following the IV administration of 93 cc of Optiray 320, CT scan of the abdomen and pelvis is performed from the lung bases to the proximal femora. Images are reviewed in the axial, sagittal, and coronal planes. IV contrast was administered without complication. A dose lowering technique was utilized adhering to the principles of ALARA. CT DOSE: 383.99 mGy.cm FINDINGS: Lung bases: The heart is normal in size and without pericardial effusion. The coronary arteries are densely calcified. Emphysematous change is seen at the lung bases. No airspace consolidation or pleural effusion is identified. There are scattered calcified granulomas. Liver: The contrast-enhanced liver is normal in size, contour, and attenuation. There is [id number] intrahepatic biliary ductal dilatation. This is similar to previous. The hepatic veins and portal veins are patent. Gallbladder: Surgically absent and clips in the gallbladder fossa. Spleen: Normal in size and attenuation. There are calcified splenic granulomas. Pancreas: Unremarkable. Adrenal glands: Unremarkable. Kidneys: The contrast enhanced kidneys are normal in size and without hydronephrosis. The kidneys enhance symmetrically. Small bilateral renal cysts measure up to 16 mm. Abdominal vasculature: There is advanced atherosclerotic calcification and ectasia of the abdominal aorta. Bowel: There are numerous distended and fluid-filled loops of small bowel which measure up to 3.4 cm in diameter. There are completely decompressed loops of distal small bowel right lower quadrant. There is fluid within a right inguinal hernia, and a loop of small bowel protrudes into the inguinal hernia as seen on axial image #248. This does not clearly represent the site of obstruction. The transition point is not definitively seen, and likely located somewhere in the right lower quadrant. There is no pneumatosis intestinalis or portal venous gas. There is mild colonic diverticulosis without CT evidence of acute diverticulitis a portion of the ascending colon is contained within a hernia within the right posterior abdominal wall just above the iliac crest seen on axial image #142. This also does not clearly represent the site of obstruction. The appendix is normal as visualized. Peritoneum: No intraperitoneal free air is seen. There is trace perihepatic and perisplenic ascites. There is a small volume of pelvic ascites. Lymphadenopathy: None. Pelvic viscera: The prostate gland is enlarged and heterogeneous. A nodular focus of enhancement is seen within the left lobe on image #279 and measures up to 1.6 cm. The bladder is distended, and the wall is thickened/trabeculated indicating chronic outlet obstruction. Skeletal structures: The skeletal structures are osteopenic. There is moderate lumbosacral spondylosis with postsurgical change from spinal fusion at L4-S1. No lytic or blastic lesions are seen. There is a large bony defect in the superior right iliac wing. There is a subacute-appearing left anterior 6th rib fracture. IMPRESSION: 1. High-grade small bowel obstruction as above. The transition point is not clearly delineated, but likely located in the right lower quadrant. Surgical evaluation is advised. 2. There is fluid within a right inguinal hernia, and a loop of distal small bowel protrudes into the hernia. This does not clearly represent the site of obstruction. 3. Additionally, there is a large hernia in the right posterior wall of the upper pelvis at the level of a defect within the right iliac wing. This contains a portion of the right colon and possibly portions of small bowel. This also does not definitively represent the site of obstruction. 4. There is interloop fluid and abdominal ascites. 5. No intraperitoneal free air is seen. There is no pneumatosis intestinalis or portal venous gas. 6. Prostatomegaly evidence of chronic bladder outlet obstruction. An enhancing nodule is suggested within the left aspect of the prostate. This is not well evaluated by CT and may be related to BPH. Correlate with serum PSA levels. 7. Additional findings as above. ACT 112: Negative or not required by law. Electronically signed by: Mason Parrish M.D. 03/17/2023 9:32 AM Discharge Plan Visit Data Chief Complaint: Referred by Doctor Stated Complaint: REF BY ED Provider: Dolores Linton Discharge Problem: Incarcerated right inguinal hernia, Small bowel obstruction Patient Disposition: Admitted As Inpatient Discharge Instructions Interventions: ED Discharge Assessment Last Done: 03/17/23 13:50
--- NOTE | 2023-03-17 13:04 | Billing Data ---
Date of Service March 17, 2023 Coding Level of Care Code 95328 INT INP/OBS CARE
[2023-03-17] MEDS ORDERED: HYDROmorphone INJ 1 MG/ML SYRINGE IV PRN (14:23)
[2023-03-17] MEDS ORDERED: LORazepam 0.5 MG in SYRINGE 0.25 ML IV PRN (14:23)
[2023-03-17] MEDS ORDERED: FLUTICASONE/VILANTEROL 100/25MCG 14 PUFFS/INHALER INH PRN (14:23)
[2023-03-17] MEDS ORDERED: HYDROmorphone INJ 0.5 MG/0.5 ML SYR IV PRN (14:23)
[2023-03-17] MEDS ORDERED: NALOXONE HCL 0.4 MG/1 ML VIAL/CARP IV PRN (14:23)
[2023-03-17] MEDS: ACETAMINOPHEN 1,000 MG/100 ML VIAL IV SCH ×2 (14:54→21:48)
[2023-03-17] MEDS: CHECK fentaNYL PATCH PLACEMENT SCH ×2 (14:59→23:09)
[2023-03-17] MEDS: ONDANSETRON INJ 2 MG/ML 2 ML VIAL IV PRN (23:12)
[2023-03-18] MEDS: SODIUM CHLORIDE 0.9% 1,000 ML IV SCH ×2 (05:08→16:24)
[2023-03-18] MEDS: ACETAMINOPHEN 1,000 MG/100 ML VIAL IV SCH ×2 (05:08→16:09)
[2023-03-18] MEDS: CHECK fentaNYL PATCH PLACEMENT SCH ×2 (07:52→16:24)
[2023-03-18] MEDS ORDERED: fentaNYL 12 MCG/HR TDSY TD SCH (09:00)
[2023-03-18] MEDS ORDERED: LACTATED RINGER'S 1,000 ML IV SCH (09:00)
[2023-03-18] MEDS: ONDANSETRON INJ 2 MG/ML 2 ML VIAL IV PRN (09:05)
[2023-03-18] MEDS ORDERED: ceFAZolin 2,000 MG/15 ML IV PUSH IV ONE (09:57)
[2023-03-18] MEDS ORDERED: ceFAZolin 2000MG 2,000 MG/15 ML SYR IV ONE (10:00)
--- NOTE | 2023-03-18 10:02 | Surgery Progress Note ---
Date of Service March 18, 2023 Assessment & Plan (1) Incarcerated right inguinal hernia: Plan: Recurrent right inguinal hernia following open repair with incarceration of bowel obstruction, reduced in ER yesterday. plan for robotic assisted laparoscopic right inguinal hernia repair, possible left risks discussed to include but not limited to bleeding, infection, recurrence, chronic pain, damage to surrounding structures including testicle, need for fut ure or more extensive surgery, and risks of anesthesia educated on signs and symptoms of incarceration, obstruction, and strangulation Potential discharge later today or tomorrow pending results of surgery return precautions given, call with questions or concerns (2) H/O right inguinal hernia repair: (3) Small bowel obstruction: Admission and Anticipated Discharge Date Admission Date: March 17, 2023 Subjective 68-year-old male admitted with recurrent incarcerated right inguinal/femoral hernia with bowel obstruction that was reduced in the ER yesterday. He is feeling little nausea this morning thinks it may have popped out a little more. No other issues Physical Exam Constitutional: WD/WN, vitals as above Respiratory: normal respiratory effort, lungs clear to auscultation Cardiovascular: RRR, no murmur, no edema Gastrointestinal (Abdomen): normal bowel sounds, soft, nontender, no he patosplenomegaly Inspection/Auscultation: + abdominal surgical incision (Healing well) Percussion/Palpation: + hernia (Recurrent right inguinal he rnia) Results & Data Vital Signs (Past 12 Hours) Vital Signs Temp Pulse Resp BP BP Pulse Ox O2 Del Method 03/18/23 09:24 36.4 C L 55 L 18 187/99 H 94 Room Air 03/18/23 07:43 36.7 C 56 L 16 145/86 H 94 Room Air 03/17/23 23:05 64 164/89 H PG Care Time/CCT Total # of Minutes Spent Total Time Spent with Patient: Total time spent is greater than 50% in coordination of care (as documented) at patient's floor/unit and/or counseling patient: Coding Level of Care Code 16674 SUB INP/OBS CARE 2/35MIN Diagnoses Incarcerated right inguinal hernia K40.30 H/O right inguinal hernia repair Z98.890; Z87.19 Small bowel obstruction K56.609
[2023-03-18] MEDS ORDERED: ATROPINE SULFATE 0.1 MG/ML 10ML SYR IV PRN (10:13)
[2023-03-18] MEDS ORDERED: MoRPHine SULFATE 10 MG/ML CARP/VIAL IV PRN (10:13)
[2023-03-18] MEDS ORDERED: HYDROmorphone INJ 1 MG/ML SYRINGE IV PRN (10:13)
[2023-03-18] MEDS ORDERED: ACETAMINOPHEN 1,000 MG/100 ML VIAL IV STA (10:13)
[2023-03-18] MEDS ORDERED: KETOROLAC 30 MG/ML VIAL IV PRN (10:13)
[2023-03-18] MEDS ORDERED: ePHEDrine sulfate 50 MG/ML AMP IV PRN (10:13)
[2023-03-18] MEDS ORDERED: fentaNYL citrate PF 100 MCG/2 ML VIAL ONE (10:46)
[2023-03-18] MEDS ORDERED: PROPOFOL IV EMULSION 10 MG/ML 20 ML VIAL IV ONE (10:46)
[2023-03-18] MEDS ORDERED: DEXAMETHASONE SOD INJ 4 MG/ML VIAL ONE (10:46)
[2023-03-18] MEDS ORDERED: ROCURONIUM BROMIDE 10 MG/ML 5 ML VIAL IV ONE (10:46)
[2023-03-18] MEDS ORDERED: LIDOCAINE 2% 2 ML VIAL/AMP(20MG/ML) INFIL ONE (10:46)
[2023-03-18] MEDS ORDERED: MIDAZOLAM HCL 1 MG/ML 2ML VIAL ONE (10:46)
[2023-03-18] MEDS ORDERED: ONDANSETRON INJ 2 MG/ML 2 ML VIAL ONE (10:46)
[2023-03-18] MEDS ORDERED: BUPIVACAINE 0.5 % 5 MG/1 ML MPF 30ML VIAL ONE (11:10)
[2023-03-18] MEDS ORDERED: SUGAMMADEX SODIUM 200 MG/2 ML VIAL IV ONE (12:38)
--- NOTE | 2023-03-18 12:54 | Operative Report ---
PG Post Operative Report Pre & Post Diagnosis Operation Date: 03/18/23 10:00 Pre-Op Diagnosis: Recurrent right inguinal hernia Post-Op Diagnosis: Recurrent incarcerated direct right inguinal hernia I identified the patient and participated in the time-out.: Yes Procedure Operation Date: 03/18/23 10:00 Actual Procedures p Robotic Right Laparoscopic Inguinal Hernia Repair with Mesh - José Miguel Lance DO, MADYSON Surgeon José Miguel Lance DO, FACS [employer] Accountant Arabella Garcia Estimated Blood Loss 5 Findings Consistent with Post-Op Diagnosis Mildly dilated bowel with no transition point or significant adhesions. Incarcerated recurrent direct right inguinal hernia, preperitoneal fat reduced, somewhat hemorrhagic. Small defect closed with 3-0 Vicryl suture. ProGrip mesh placed on the right. No obvious hernia on the left. Specimens None Anesthesia Type General Complications none Disposition Accompanied Patient To Recovery: No Disposition: Recovery Room Indications 68-year-old male status post open right inguinal hernia repair with mesh 1 month ago, presented with acute recurrent right inguinal hernia with suspected bowel obstruction, portion of hernia reduced in the emergency department and patient admitted for observation. Plan for robotic assisted laparoscopic right inguinal hernia repair, possible left. The risks of the procedure were discussed, all questions were answered, and the patient agreed to proceed with surgery as planned. Description of Procedure The patient was properly identified, consented, and taken to the operating room where he was placed in the supine position. General endotracheal anesthesia was induced. SCDs and a safety belt were placed. A moy catheter was placed. Preoperative antibiotics were administered. The patient's groins and abdomen were prepped and draped in the standard sterile fashion. Surgical timeout was performed and all parties were in agreement that this was the correct patient and procedure to be performed and we continued as planned. An incision was made in the upper abdomen just off of the midline. The Veress needle was inserted and saline drop test confirmed entry into the abdomen. The abdomen was insufflated with carbon dioxide which the patient tolerated without incident. The Veress needle was removed and the abdomen was entered using the Optiview technique and a 5 mm camera. The introducer was removed and the camera reinserted. No damage from initial trocar placement or Veress needle placement was identified. There were no abnormalities in the 4 quadrants of the abdomen. A recurrent direct inguinal hernia was identified on the right. 8 mm robotic ports were then placed in the right upper quadrant and left upper quadrant. The patient was placed in the Trendelenburg position. There was no bowel obvious within the hernia. Due to the findings on CT scan, the small bowel was run and there was no evidence of any obstructive transition point or significant scarring. The robot was docked, and the camera and instruments were inserted. The peritoneum was incised approximately 6 cm above the defect, starting at the medial umbilical ligament and working laterally. The peritoneal flap was raised. Dissection began laterally at the anterior superior iliac spine. Danny's ligament was then dissected medially. The cord structures were circumferentially dissected. An incarcerated direct inguinal hernia defect was identified. The incarcerated peritoneum and preperitoneal fat was reduced. The fat appeared somewhat hemorrhagic but viable. It appeared that the recurrence was medial to the lead edge of the mesh. The peritoneum was dissected away from the cord structures and the cord was skeletonized. The small direct defect was reapproximated with a [id number] 3-0 Vicryl suture. Progrip mesh was placed on the right and covered the direct, indirect, and femoral spaces. The peritoneal flap was then closed with a running absorbable barbed suture. The robot was undocked and the ports were removed. The skin of all port sites were closed with 4-0 Monocryl subcuticular suture, and Dermabond was placed over the incisions. The patient was extubated in the operating room and taken to the PACU for recovery without apparent incident. All sponge, instrument, and needle counts were correct at the conclusion of the procedure. The patient tolerated the procedure well. The nurse practitioner was present and scrubbed for the entirety of the procedure, and was critical in positioning the patient, prepping and draping, retraction and exposure, driving the laparoscope, assistance with exchange of the robotic instruments, closure of the incisions, and placement of the dressings. I attest to the content of the Intraoperative Record and any orders documented therein. Any exceptions are noted below.
[2023-03-18] MEDS: fentaNYL citrate PF 100 MCG/2 ML VIAL IV PRN ×2 (13:15→13:20)
[2023-03-18] MEDS: ONDANSETRON INJ 2 MG/ML 2 ML VIAL IV STA ×2 (13:16→13:22)
[2023-03-18] MEDS ORDERED: PROMETHAZINE HCL 12.5 MG in SODIUM CHLORIDE 0.9% 50 ML IV STA (13:22)
[2023-03-18] MEDS ORDERED: PROMETHAZINE HCL INJ 25 MG/ML 1 ML VIAL ONE (13:23)
[2023-03-18] MEDS ORDERED: SODIUM CHLORIDE 0.9% 50 ML BAG ONE (13:23)
--- NOTE | 2023-03-18 14:11 | Anesthesiology Progress Note ---
Date of Service March 18, 2023 Anesthesia Post Procedure Vital Signs Vital Signs: Temp Pulse Resp BP BP Pulse Ox O2 Del Method 03/18/23 13:55 55 L 12 157/90 H 98 Nasal Cannula 03/18/23 13:45 36.9 C 58 L 12 163/97 H 94 Nasal Cannula 03/18/23 13:35 62 14 155/85 H 92 Nasal Cannula 03/18/23 13:25 64 14 150/99 H 98 Oxymask 03/18/23 13:15 67 14 162/96 H 98 Oxymask 03/18/23 13:05 64 16 181/98 H 100 Oxymask 03/18/23 12:58 36.4 C L 72 16 183/107 H 97 Oxymask 03/18/23 09:24 36.4 C L 55 L 18 187/99 H 94 Room Air 03/18/23 07:43 36.7 C 56 L 16 145/86 H 94 Room Air 03/18/23 07:40 Room Air 03/17/23 23:05 64 164/89 H 03/17/23 19:31 36.7 C 87 16 174/92 H 95 Room Air 03/17/23 19:29 Room Air 03/17/23 15:52 166/86 H 03/17/23 14:44 Room Air O2 Flow Rate 03/18/23 13:55 2 03/18/23 13:45 2 03/18/23 13:35 2 03/18/23 13:25 5 03/18/23 13:15 5 03/18/23 13:05 9 03/18/23 12:58 9 03/18/23 09:24 03/18/23 07:43 03/18/23 07:40 03/17/23 23:05 03/17/23 19:31 03/17/23 19:29 03/17/23 15:52 03/17/23 14:44 Pain Intensity Back: Pain Intensity: 2 Abdomen: Pain Intensity: 5 Transfer of Care Handoff Completed per policy Notes Mental Status: alert / awake / arousable and participated in evaluation Patient Amnestic to Procedure: Yes Nausea / Vomiting: adequately controlled Pain: adequately controlled Airway Patency, RR, SpO2: stable & adequate BP & HR: stable & adequate Hydration State: stable & adequate Anesthetic Complications: no major complications apparent
[2023-03-18] MEDS ORDERED: ALBUT/IPRATROP 3MG/0.5MG NEB 3 ML VIAL NEB STA (14:27)
[2023-03-18] MEDS ORDERED: FLUTICASONE/VILANTEROL 100/25MCG 14 PUFFS/INHALER INH SCH (14:30)
[2023-03-18 15:01] LABS: Basophils # (auto) 0.02 K/uL (0.00-0.20); Basophils % (auto) 0.3 %; Eosinophils # (auto) 0.03 K/uL (0.00-0.50); Eosinophils % (auto) 0.4 %; Hematocrit (blood only) 40.7 % (42.0-52.0); Hemoglobin 13.7 g/dl (14.0-18.0); Immature Granulocytes # (auto) 0.03 K/uL (0.01-0.20); Immature Granulocytes % (auto) 0.4 %; Lymphocytes # (auto) 0.59 K/uL (1.20-3.40); Lymphocytes % (auto) 8.2 %; Mean Corpuscular Hemoglobin 32.1 pg (25.0-34.0); Mean Corpuscular Hgb Conc 33.7 g/dL (32.0-36.0); Mean Corpuscular Volume 95.3 fL (80.0-100.0); Mean Platelet Volume 8.6 fL (9.4-12.4); Monocytes # (auto) 0.05 K/uL (0.11-0.59); Monocytes % (auto) 0.7 %; Platelet Count 261 K/uL (130-400); RDW Coefficient of Variation 13.7 % (11.5-14.5); RDW Standard Deviation 48.6 fL (36.4-46.3); Red Blood Count 4.27 M/uL (4.70-6.10); White Blood Count 7.22 K/ul (4.8-10.8)
[2023-03-18 15:09] LABS: BUN Creatinine Ratio 11.5 (10-20); Calcium 9.2 mg/dl (8.6-10.3); Creatinine Clr Calc Pharmacy 69.8 ml/min; Est GFR (African American) 106.7 ml/min; Est GFR (Non-African American) 92.1 ml/min; Potassium 4.1 mmol/L (3.5-5.1)
[2023-03-18] MEDS ORDERED: LORazepam 0.5 MG TAB PO PRN (15:24)
[2023-03-18] MEDS ORDERED: lisinopril 20 MG TAB PO SCH (15:25)
[2023-03-18] MEDS ORDERED: ACETAMINOPHEN 500 MG TAB PO SCH (15:30)
[2023-03-18] MEDS ORDERED: ALBUTEROL HFA 8 GM INHALER INH PRN (16:05)
--- NOTE | 2023-03-18 17:09 | Discharge Summary ---
Discharge Summary Date of Service March 18, 2023 Notes For Next Care Provider Medication Changes From Visit Added albuterol prn inhaler Admission HPI Per Admitting Provider Jerome is a 68M with history of anxiety, COPD/asthma, chronic pain (d/t spondylolisthesis s/p laminectomy on Fentanyl patch), HTN, HLD, tobacco use, and prior stroke/TIA who presents for evaluation of abdominal pain and emesis. Of note, patient recently had right inguinal hernia repair surgery on 02/10/23. Patient notes that this morning while putting on his sweatpants and lifting his left leg he experienced a popping sensation in his RLQ. Patient denies pain after the episode, but notes that he immediately became nauseous and started vomiting. Patient has not had any emesis or abdominal pain since presentation to the ER, he notes that his chronic back pain is worsening d/t not taking his home medication today. 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 Patient denies any chest pain, dyspnea, headaches, dysuria, diarrhea or constipation. He notes that his last bowel movement was 03/16, not actively passing flatus. Patient currently smokes 4-5 cigarettes daily and is not interested in cessation, he continues to take Breo Elipta PRN for dyspnea/wheezing. Patient is on chronic pain management with Fentayl patch, Tylenol, Naproxen PRN, and Tramadol - patch is due to be changed 03/18. ED Course: Partial reduction of hernia, CT scan, full manual reduction by general surgery in ED, pain management with 50 mcg of IV fentanyl and Zofran Principal Dx & Hospital Course #1 = Principal Diagnosis (1) H/O right inguinal hernia repair: (2) Small bowel obstruction: (3) Hypercholesteremia: (4) Transient ischemic attack (TIA): (5) Spinal stenosis, lumbar region with neurogenic claudication: (6) Chronic obstructive pulmonary disease: (7) Left lumbar radiculopathy: Alisson Cano is a 68M with history of anxiety, COPD/asthma, chronic pain (d/t spondylolisthesis s/p laminectomy on Fentanyl patch), HTN, HLD, tobacco use, and prior stroke/TIA who presents for evaluation of abdominal pain and emesis. Of note, patient recently had right inguinal hernia repair surgery on 02/10/23. High Grade SBO s/p Inguinal Hernia Repair - Recent Inguinal Hernia Repair 02/10/23 - Patient experiencing sudden 'pop' followed by nausea/emesis this AM - CT indicating * High grade SBO, unclear transition point, likely RLQ * Fluid w/in R inguinal hernia and loop of distal small bowel protruding into hernia * Large hernia in R posterior wall of upper pelvis at the level of the defect in the right iliac wing containing portion of right colon and possibly portion of small bowel * Interloop fluid and abdominal ascites * No intraperitoneal free air, no pneumatosis intestinalis or portal venous gas - Patient resenting w/o nausea, s/p Zofran, no active emesis, continue Zofran PRN - General surgery consulted, fully reduced at bedside, had surgical repair of right inguinal hernia on 03/18 and was tolerating po, ambulating afterwards and ready to go home. Can use usual home pain meds after discharge f/u with Surgery in 2 weeks Continue all other usual medications for HTN, HL, and prescribed albuterol prn for COPD as he had wheezing Discharge Exam Constitutional WD/WN, vitals as above Neck trachea midline, no thyromegaly Respiratory normal respiratory effort; does not use accessory muscles Auscultation: + wheezes (bilat exp); no crackles and no rhonchi Cardiovascular RRR, no murmur, no edema Chest (Breasts) Chest: normal inspection of chest Gastrointestinal (Abdomen) Inspection/Auscultation: + abdomen abnormal to inspection (laparoscopic incisions with dermadbond x 3) RLQ incisional wound well healed +BS soft NT ND Musculoskeletal Extremities: extremities normal to inspection; no cyanosis and no clubbing Skin no rashes, warm and dry Neurologic moves all extremities and awake; no focal motor deficits Psychiatric A+Ox3, euthymic affect Lymphatic no lymphedema Updated Medication List Medication Instructions Recorded Confirmed Type cholecalciferol (vitamin D3) 25 1,000 unit PO QPM 01/03/18 03/17/23 History mcg (1,000 unit) capsule (Vitamin D3) fluticasone furoate 100 1 inh inhalation DAILY PRN 01/03/18 03/17/23 History mcg-vilanterol 25 mcg/dose Shortness Of Breath inhalation powder (Breo Ellipta) loratadine 10 mg tablet (Claritin) 1 tab PO QPM PRN seasonal allergies 01/03/18 03/17/23 History lorazepam 0.5 mg tablet 0.5 mg PO BID PRN Anxiety 01/03/18 03/17/23 History naproxen 500 mg tablet 500 mg PO BID PRN Pain 01/03/18 03/17/23 History acetaminophen 500 mg tablet 1,000 mg PO Q6H 07/03/18 03/17/23 History (Tylenol Extra Strength) fentanyl 12 mcg/hr transdermal 1 patch transdermal Q48H 03/07/20 03/17/23 History patch aspirin 81 mg tablet,delayed 81 mg PO QPM 07/07/20 03/17/23 History release lisinopril 20 mg tablet 20 mg PO QPM 01/31/23 03/17/23 History simvastatin 40 mg tablet 40 mg PO PM 01/31/23 03/17/23 History tramadol 50 mg tablet 50 mg PO Q6H 01/31/23 03/17/23 History albuterol sulfate 90 mcg/actuation 2 puff inhalation Q6H PRN 03/18/23 Rx aerosol inhaler (Ventolin HFA) shortness of breath or wheezing #8.5 grams Hospital Stay Data Consultations 03/17/23 11:47 ED Decision to Admit Stat 03/17/23 14:23 Consult General Surgery Routine Procedures Performed Operation Date: 03/18/23 10:00 Actual Procedures p Robotic Right Laparoscopic Inguinal Hernia Repair with Mesh - José Miguel Lance DO, FACS Diagnostic Imagining Performed 03/17/23 08:00 CT abd pelvis IV con only Stat Pending Results Patient Have Any Pending Studies at Discharge: No Discharge Instructions Given to Patient (Per Discharging Provider) You have surgical glue called dermabond on your surgical site incisions. You may shower with this on. This will tend to come off within a couple of weeks. Do not pick at it. You may ice your groin on and off alternating every 20 minutes as needed to help with pain and swelling over the next few days. Total Time Total Time Spent Total Time Spent (In Minutes): 35 min Total Time Includes: Examination of the Patient, Discharge Planning, Medication Reconciliation and Communication With Other Providers (Surgery) Coding Level of Care Code 97715 INP/OBS DISCH >30 MIN Diagnoses H/O right inguinal hernia repair Z98.890; Z87.19 Small bowel obstruction K56.609 Hypercholesteremia E78.00 Transient ischemic attack (TIA) G45.9 Spinal stenosis, lumbar region with neurogenic claudication M48.062 Chronic obstructive pulmonary disease J44.9 Left lumbar radiculopathy M54.16
[2023-03-18] MEDS ORDERED: ASPIRIN 81 MG ECTAB PO SCH (21:00)
[2023-03-18] MEDS ORDERED: CHOLECALCIFEROL 1,000 UNITS 25 MCG TAB PO SCH (21:00)
[2023-03-18] MEDS ORDERED: SIMVASTATIN 40 MG TAB PO SCH (21:00)
--- NOTE | 2023-03-21 13:19 | Coding Query ---
To promote full compliance with coding requirements relating to patient care, provider participation is requested in all cases of reproductive healthcare assistant uncertainty. Please assist us with the question(s) below: Coding Question(s): The diagnosis below was documented in the H&P, then subsequently fell off all further documentation. Please indicate if it is still a possible diagnosis or ruled out. Physician's Response(s): HYPONATREMIA (MILD) - documented on H&P ( x ) Diagnosed ( ) Ruled out ( ) Other (please specify) MTDD
--- NOTE | 2023-03-21 13:20 | Coding Query ---
BMI To promote full compliance with coding requirements relating to patient care, physician participation is requested in all cases of vp compliance uncertainty. Please assist us with the question(s) below: Please place an X within the parenthesis (x). If other, please document: BMI (18.5 ) was documented in this record for this patient. If the BMI is significant, please check the box that provides a more specific associated diagnosis: ( ) Overweight/Obese ( ) Obesity ( ) Morbid obesity ( ) Obesity Hypoventilation Syndrome (OHS) ( ) Heathy weight, not significant ( x) Underweight/Thin ( ) Other, please specify Thank you Analy ESPINAL
== END 2023-03-18 17:56 | disposition home or self-care (01) | DRG 351 ==
LOC: ED 07:26 → SUATTDRO 12:47 → 3N 12:47